=== PATIENT | male | born 1960 | race Hispanic/Latino ===

== ENCOUNTER 2023-02-09 19:58 | Emergency (ER) | payer MEDICARE ==
--- OUTSIDE RECORDS SUMMARY | 2023-02-09 20:04 | XMS REPORT | Continuity of Care Document ---
:1960 Author Organization [facility] t Address [address] [facility] [place] [address] [place] [address] Care Team Providers Name Role Phone Jasmin Cano Primary Care Physician TAY DOMINGUEZ Attending Clinician Unavailable Rasheed Ca Attending Clinician Madeline Zamarripa Attending Clinician Lizet Attending Clinician Unavailable Doctor Unassigned, [place] Attending Clinician Unavailable Dayanara Jacobo MD Attending Clinician CARLOS EDUARDO MARTINEZ Attending Clinician Unavailable Carlos Eduardo Martinez MD Attending Clinician Neha Sargent Attending Clinician Good Malone DO Attending Clinician ERNST Attending Clinician Unavailable DAYANARA JACOBO Attending Clinician Unavailable DAYANARA JACOBO Attending Clinician Unavailable MARGRET LOZANO Attending Clinician Unavailable SHIVANI RONELAS Attending Clinician Unavailable Good Malone DO Attending Clinician GOOD MALONE Attending Clinician Unavailable Pob, [facility] Attending Clinician Unavailable RICHARD BANERJEE Attending Clinician Unavailable Richard Banerjee MD Attending Clinician MERCED ACOSTA Attending Clinician Unavailable PIPER MARTINEZ Attending Clinician Unavailable WENDY ANN Attending Clinician Unavailable Wendy Ann MD Attending Clinician Piper Petersen Attending Clinician Asiya Aviles Attending Clinician IDA [place] M.D. Attending Clinician Unavailable Edson Chávez MD Attending Clinician AGA HOLLY M.D. Attending Clinician Unavailable Ida [place] Attending Clinician ART PERRIN Attending Clinician Unavailable TYREE MCGHEE DPM Attending Clinician Unavailable Chloé Hilario Attending Clinician Sheth_M Admitting Clinician Unavailable AMBREEN_EBERA Admitting Clinician Unavailable WENDY ANN Admitting Clinician Unavailable RICHARD BANERJEE Admitting Clinician Unavailable Payers Payer Name Policy Type Policy Number Effective Date Expiration Date S david CINDY/KATIE [id number] 2020 MEDICARE ADVANTAGE 00:00:[facility] [id number] 2021 (MEDICARE 00:00:00 REPLACEMENT HMO) Problems Condition Condition Condition Status Onset Resolution Last Treating Co mments Source Name Details Category Date Date Treatment Clinician Date MORBID MORBID Diagnosis Active 2020-08-26 M emoria OBESITY OBESITY 08-13 13:59:00 l Active 00:00: Stephan 08/13/2020 [facility] MORDID MORDID Diagnosis Active 2020-08-07 Me moria OBESITY OBESITY 07-31 09:03:00 l Active 00:00: Stephan 07/31/2020 [facility] SCREENING SCREENING Diagnosis Active 2020-08-06 Memoria FOR FOR 05-14 19:48:00 l DISORDERS DISORDERS 00:00: Herm samuel OF TWO OF TWO 00 DIGESTIVE DIGESTIVE Active 05/14/2020 [facility] Chronic Chronic Disease Active [facility] heart heart 4-13 ity of failure failure 00:00: [place] with with 00 Medical preserved preserved Bran ch ejection ejection fraction fraction Essential Essential Disease Active 2020-0 Uni vers hypertensi hypertensi 4-13 it y of on on 00:00: [place] [address] Medical Branch Paresthesi Paresthes Problem Active 2023-01-30 Memmercedes a ia 8-24 14:03:36 l (finding) (finding) 00:00: Herm samuel Active 00 07/15/2017 Problem 01/30/2023 [facility] Carpal Carpal Problem Active 2023-01-30 Adán nayana tunnel tunnel 6- 14:03:36 l syndrome syndrome 00:00: Marcin n (disorder) (disorder) 00 Active 05/12/2017 Problem 01/30/2023 [facility] Common Common Problem Active 2023-01-30 Mem oria peroneal peroneal - 14:03:36 l nerve nerve 00:00: Stephan lesion lesion 00 (disorder) (disorder) Active 05/12/2017 Problem 01/30/2023 [facility] M54.9 - M54.9 - Diagnosis Active 2017-01-20 Memoria "DORSALGIA "DORSALGIA 2-19 12:19:00 l , , 00:01: Stephan UNSPECIFIE UNSPECIFIE 00 D" D" Active 01/10/2017 [facility] Peterson Morbid Morbid Disease Active 2015-11 Univers obesity obesity 1-03 [place] body [place] mass index 00 Me dical of 50 or of 50 or Branch higher higher Morbid Morbid Disease Active 2015-11 [facility] obesity obesity 1-03 [place] of with body [place] body [place] mass index 00 Me dical of of Branch 40.0-49.9 40.0-49.9 Arthralgia Arthralgia Problem Active [facility] T of of Physici multiple multiple ans sites sites NSAID NSAID Problem Active [facility] long-term long-term Phys ici use use ans Joint pain Joint pain Problem Active U T of ankle of ankle Physic i and foot, and foot, ans right right Achilles Achilles Problem Active [facility] tendinitis tendinitis Ph ysici , left leg , left leg an s Calcaneal Calcaneal Problem Active UT spur of spur of Physici foot, foot, ans right right Lumbar Lumbar Problem Active [facility] stenosis stenosis Physic i with with ans neurogenic neurogenic claudicati claudicati on on SI SI Problem Active UT (sacroilia (sacroilia Ph ysici c) joint c) joint ans dysfunctio dysfunctio n n Low back Low back Problem Active [facility] pain pain Physici ans DDD DDD Problem Active UT (degenerat (degenerat Ph ysici yareli disc yareli disc ans disease), disease), lumbar lumbar Obesity Obesity Problem Active [facility] Physici ans Other Other Problem Active UT spondylosi spondylosi Ph ysici s, lumbar s, lumbar ans region region 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 ysici of left of left ans shoulder shoulder Depressive Problem Resolve 2022-08-30 Memoria disorder Depressive d 21:38:44 l (disorder) disorder Herm samuel (disorder) Resolved Problem 08/30/2022 [facility]placed By [facility] Dyspnea on Dyspnea Problem Resolve 2022-08-30 Memoria exertion on d 21:38:44 l (finding) exertion Gabbi nn (finding) Resolved Problem 08/30/2022 [facility] Edema of Edema of Problem Resolve 2022-08-30 Memoria extremity extremity d 21:38:44 l (finding) (finding) Herm samuel Resolved Problem 08/30/2022 Replaced By [facility] Obstructiv Obstructi Problem Resolve 2022-08-30 Memoria e sleep ve sleep d 21:38:44 l apnea apnea 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 (disorder) (disorder) Resolved Problem 08/30/2022 [facility] Cervical Cervical Problem Active 2023-01-30 Memoria radiculopa radiculopa 14:03:36 l thy thy Stephan (disorder) (disorder) Active Problem 01/30/2023 Replaced By [facility] [place] Cervical Cervical Problem Active 2023-01-30 Memoria spondylosi spondylosi 14:03:36 l s s [place] (disorder) (disorder) Active Problem 01/30/2023 Replaced By [facility] [place] Hypertensi Hypertens Problem Active 2023-01-30 Memoria ve yareli 14:03:36 l disorder, disorder, Herm samuel systemic systemic arterial arterial (disorder) (disorder) Active Problem 01/30/2023 Replaced By [facility] Lumbar Lumbar Problem Active 2023-01-30 Mem oria radiculopa radiculopa 14:03:36 l thy thy Stephan (disorder) (disorder) Active Problem 01/30/2023 [facility] Headache Headache Problem Active 2023-01-30 Memoria (finding) (finding) 14:03:36 l Active Stephan Problem 01/30/2023 [facility] [place] Other Other Problem 2019-05-16 [facility] spondylosi spondylosi 11:22:17 l s, lumbar s, lumbar Herm samuel region region 05/16/2019 [facility] History of Past Illness Condition Condition Condition Status Onset Resolution Last Treating Co mments Source Name Details Category Date Date Treatment Clinician Date Spinal Spinal Problem 2017-112019-05-16 2019-05-16 Memoria stenosis, stenosis, 2-11 11:22:17 11:22:17 l lumbar lumbar 05:57: [facility] region 03 with with neurogenic neurogenic claudicati claudicati on on 11/01/201805/16/ 9 [facility] Allergies, Adverse Reactions, Alerts Allergy Allergy Status Severity Reaction(s) Onset Inactive Treating Comm ents Source Name Type Date Date Clinician NO KNOWN Drug Active Univers ALLERGIE Class ity of S [facility] No Known No Known Active Memori a Medicati Medicati l on on [place] Allergie Allergie s s Family History Family Member Diagnosis Comments Start Date Stop Date Source Unknown Family Family history of Family History [facility] Member diabetes mellitus Natural father Diabetes [facility] Natural father Heart disease [facility] Natural father Hypertension [facility] father Stroke [facility] Natural sister Diabetes [facility] Social History Social Habit Start Date Stop Date Quantity Comments Source Alcohol intake 2021-11-18 2021-11-18 Ex-drinker [employer] 00:00:00 00:00:00 (finding) Hospital Tobacco use and 2021-11-18 2021-11-18 Smokeless tobacco Me [facility] exposure 00:00:00 00:00:00 non-user Hospital Sex Assigned At [birth year] M [employer] 00:00:00 00:00:00 Hospital Smoking Status Start Date Stop Date Source Tobacco smoking status [facility] Medications Ordered Filled Start Stop Current Ordering Indication Dosage Frequency Signature Comments Components Source Medication Medication Date Date Medication? Clinician (SIG) Name Name Topamax 50 Yes 50 mg = 1 Me moria mg oral 3-08 tab, PO, l tablet 15:32: Bedtime, # Gabbi nn 00 30 tab, 3 Refill(s), Pharmacy: [id number], 170.18, cm, 01/27/23 9:02:00 [employer], Height, 167.727, kg, 01/27/23 9:02:00 [employer], Weight atenolol Yes PO, Daily, Mem oria 3-08 0 l 15:09: Refill(s) [place] 00 amLODIPine 2021-11 Yes TAKE 1 Memor ia 5 mg oral 1-18 TABLET BY l tablet 14:33: MOUTH Stephan 00 EVERY DAY FOR 90 DAYS gabapentin 2021-11 Yes TAKE 1 Memor ia 300 mg oral 0-12 CAPSULE BY l capsule 20:02: MOUTH IN Marcin n 00 THE MORNING AND 1 CAPSULE AT NOON AND 1 CAPSULE IN THE EVENING. tramadol 50 2021-11 Yes TAKE 1 Adán nayana mg oral 0-12 TABLET (50 l tablet 20:02: MG TOTAL) Marcin n 00 BY MOUTH 2 (TWO) TIMES A DAY IF NEEDED FOR MODERATE PAIN testosteron 2020-[address] on Me thodi e 10 mg/0.5 2-[address] gram 09:40: Hospita /actuation 19 l gel in metered-dos e pump cyclobenzap 2020-11 Yes 10mg Q.5D Take 10 mg Methodi rine 2-[address] (FLEXERIL) 09:40: (two) Hospit a 10 mg 18 times a l tablet day. traMADoL 2020-11 Yes 50mg Q.25D Take 50 mg Me thodi (ULTRAM) 50 2-[address] mg tablet 00:00: (four) Hospit a 00 times a l day as needed. furosemide 2020-11 Yes 20mg Q.5D Take 20 mg M ethodi (LASIX) 20 2-[address] mg tablet 00:00: (two) Hospita 00 times a l day. losartan 50 2020-11 Yes [id number] 100mg Take 2 Univers mg tablet 1-23 tablets by ity of 00:00: mouth [place] 00 daily. Medical Branch losartan 50 2020-11 Yes [id number] 100mg Take 2 Univers mg tablet 1-23 tablets by ity of 00:00: mouth [place] 00 daily. Medical Branch losartan 50 2020-11 Yes [id number] 100mg Take 2 Univers mg tablet 1-23 tablets by ity of 00:00: mouth [place] 00 daily. Medical Branch losartan 50 2020-11 Yes [id number] 100mg Take 2 Univers mg tablet 1-23 tablets by ity of 00:00: mouth [place] 00 daily. Medical Branch losartan 50 2020-11 Yes [id number] 100mg Take 2 Univers mg tablet 1-23 tablets by ity of 00:00: mouth [place] 00 daily. Medical Branch losartan 50 2020-11 Yes [id number] 100mg Take 2 Univers mg tablet 1-23 tablets by ity of 00:00: mouth [place] 00 daily. Medical Branch losartan 50 2020-11 Yes [id number] 100mg Take 2 Univers mg tablet 1-23 tablets by ity of 00:00: mouth [place] 00 daily. Medical Branch losartan 50 2020-11 Yes [id number] 100mg Take 2 Univers mg tablet 1-23 tablets by ity of 00:00: mouth [place] 00 daily. Medical Branch losartan 50 2020-11 Yes [id number] 100mg Take 2 Univers mg tablet 1-23 tablets by ity of 00:00: mouth [place] 00 daily. Medical Branch gabapentin 2020-11 Yes 300mg Q.[id number] Take 300 Methodi (NEURONTIN) 1-10 [id number] mg by s t 300 mg 00:00: 3D mouth 3 Hospita capsule 00 (three) l times a day. carvediloL 2020-11 Yes [id number] 25mg Take 1 U nivers 25 mg 1-05 tablet by ity of tablet 00:00: mouth 2 [place] 00 (two) Medical times Branch daily with meals. carvediloL 2020-11 Yes [id number] 25mg Take 1 U nivers 25 mg 1-05 tablet by ity of tablet 00:00: mouth 2 [place] 00 (two) Medical times Branch daily with meals. carvediloL 2020-11 Yes [id number] 25mg Take 1 U nivers 25 mg 1-05 tablet by ity of tablet 00:00: mouth 2 [place] 00 (two) Medical times Branch daily with meals. carvediloL 2020-11 Yes [id number] 25mg Take 1 U nivers 25 mg 1-05 tablet by ity of tablet 00:00: mouth 2 [place] (two) Medical times Branch daily with meals. carvediloL 2020-11 Yes [id number] 25mg Take 1 U nivers 25 mg 1-05 tablet by ity of tablet 00:00: mouth 2 [place] (two) Medical times Branch daily with meals. carvediloL 2020-11 Yes [id number] 25mg Take 1 U nivers 25 mg 1-05 tablet by ity of tablet 00:00: mouth 2 [place] (two) Medical times Branch daily with meals. carvediloL 2020-11 Yes [id number] 25mg Take 1 U nivers 25 mg 1-05 tablet by ity of tablet 00:00: mouth 2 [place] (two) Medical times Branch daily with meals. carvediloL 2020-11 Yes [id number] 25mg Take 1 U nivers 25 mg 1-05 tablet by ity of tablet 00:00: mouth 2 [place] (two) Medical times Branch daily with meals. carvediloL 2020-11 Yes [id number] 25mg Take 1 U nivers 25 mg 1-05 tablet by ity of tablet 00:00: mouth 2 [place] (two) Medical times Branch daily with meals. carvediloL 2020-11 Yes 25mg Q.5D Take 25 mg M ethodi (COREG) 25 1-[address] MG tablet 00:00: (two) Hospita 00 times a l day. citalopram 2020-11 Yes 40mg Take 40 mg U nivers (CELEXA) 40 1-01 by mouth ity of mg tablet 10:14: daily. [address] Branch indomethaci 2020-11 Yes 75mg Take 75 mg Univers n (INDOCIN 1-01 by mouth 2 ity of SR) 75 mg 10:14: (two) [place] CR capsule 44 times Medical daily with Branch meals. citalopram 2020-11 Yes 40mg Take 40 mg U nivers (CELEXA) 40 1-01 by mouth ity of mg tablet 10:14: daily. [address] Branch indomethaci 2020-11 Yes 75mg Take 75 mg Univers n (INDOCIN 1-01 by mouth 2 ity of SR) 75 mg 10:14: (two) [place] CR capsule 44 times Medical daily with Branch meals. citalopram 2020-11 Yes 40mg Take 40 mg U nivers (CELEXA) 40 1-01 by mouth ity of mg tablet 10:14: daily. [address] indomethaci 2020-11 Yes 75mg Take 75 mg Univers n (INDOCIN 1-01 by mouth 2 ity of SR) 75 mg 10:14: (two) [place] CR capsule 44 times Medical daily with Branch meals. citalopram 2020-11 Yes 40mg Take 40 mg U nivers (CELEXA) 40 1-01 by mouth ity of mg tablet 10:14: daily. [address] indomethaci 2020-11 Yes 75mg Take 75 mg Univers n (INDOCIN 1-01 by mouth 2 ity of SR) 75 mg 10:14: (two) [place] CR capsule 44 times Medical daily with Branch meals. citalopram 2020-11 Yes 40mg Take 40 mg U nivers (CELEXA) 40 1-01 by mouth ity of mg tablet 10:14: daily. [address] indomethaci 2020-11 Yes 75mg Take 75 mg Univers n (INDOCIN 1-01 by mouth 2 ity of SR) 75 mg 10:14: (two) [place] CR capsule 44 times Medical daily with Branch meals. citalopram 2020-11 Yes 40mg Take 40 mg U nivers (CELEXA) 40 1-01 by mouth ity of mg tablet 10:14: daily. [address] indomethaci 2020-11 Yes 75mg Take 75 mg Univers n (INDOCIN 1-01 by mouth 2 ity of SR) 75 mg 10:14: (two) [place] CR capsule 44 times Medical daily with Branch meals. citalopram 2020-11 Yes 40mg Take 40 mg U nivers (CELEXA) 40 1-01 by mouth ity of mg tablet 10:14: daily. [address] indomethaci 2020-11 Yes 75mg Take 75 mg Univers n (INDOCIN 1-01 by mouth 2 ity of SR) 75 mg 10:14: (two) [place] CR capsule 44 times Medical daily with Branch meals. citalopram 2020-11 Yes 40mg Take 40 mg U nivers (CELEXA) 40 1-01 by mouth ity of mg tablet 10:14: daily. [address] Branch indomethaci 2020-11 Yes 75mg Take 75 mg Univers n (INDOCIN 1-01 by mouth 2 ity of SR) 75 mg 10:14: (two) [place] CR capsule 44 times Medical daily with Branch meals. citalopram 2020-11 Yes 40mg Take 40 mg U nivers (CELEXA) 40 1-01 by mouth ity of mg tablet 10:14: daily. [address] Branch indomethaci 2020-11 Yes 75mg Take 75 mg Univers n (INDOCIN 1-01 by mouth 2 ity of SR) 75 mg 10:14: (two) [place] CR capsule 44 times Medical daily with Branch meals. furosemide 2020-11 Yes [id number] 80mg Take 2 U nivers 40 mg 1-01 tablets by ity of tablet 00:00: mouth [place] 00 every Medical morning. Branch furosemide 2020-11 Yes [id number] 80mg Take 2 U nivers 40 mg 1-01 tablets by ity of tablet 00:00: mouth [place] 00 every Medical morning. Branch furosemide 2020-11 Yes [id number] 80mg Take 2 U nivers 40 mg 1-01 tablets by ity of tablet 00:00: mouth [place] 00 every Medical morning. Branch furosemide 2020-11 Yes [id number] 80mg Take 2 U nivers 40 mg 1-01 tablets by ity of tablet 00:00: mouth [place] 00 every Medical morning. Branch furosemide 2020-11 Yes [id number] 80mg Take 2 U nivers 40 mg 1-01 tablets by ity of tablet 00:00: mouth [place] 00 every Medical morning. Branch furosemide 2020-11 Yes [id number] 80mg Take 2 U nivers 40 mg 1-01 tablets by ity of tablet 00:00: mouth [place] 00 every Medical morning. Branch furosemide 2020-11 Yes [id number] 80mg Take 2 U nivers 40 mg 1-01 tablets by ity of tablet 00:00: mouth [place] 00 every Medical morning. Branch furosemide 2020-11 Yes [id number] 80mg Take 2 U nivers 40 mg 1-01 tablets by ity of tablet 00:00: mouth [place] 00 every Medical morning. Branch furosemide 2020-11 Yes [id number] 80mg Take 2 U nivers 40 mg 1-01 tablets by ity of tablet 00:00: mouth [place] 00 every Medical morning. Branch atorvastati 2020-11 Yes 10mg QD Take 10 mg Methodi n (LIPITOR) 0-[address] 10 mg 00:00: daily. Hospita tablet 00 l citalopram 0 2- No 20mg QD Take 20 mg Methodi (CeleXA) 20 08-20 09-[address] MG tablet 00:00: 04:59 daily. Hospi ta 00 :00 l indomethaci 0 Yes 25mg Q.[id number] Take 25 mg Methodi n (INDOCIN) 07-30 [id number] mouth [address] 25 MG 00:00: 3D (three) Hospita capsule 00 times a l day. ibuprofen 2020-0 Yes [id number] 600mg Take 1 Univers 600 mg 6-05 [id number] tablet by ity of tablet 00:00: mouth [place] 00 every 6 Medical (six) Branch hours as needed for Pain (scale 4-6). ibuprofen 2020-0 Yes [id number] 600mg Take 1 Univers 600 mg 6-05 [id number] tablet by ity of tablet 00:00: mouth [place] 00 every 6 Medical (six) Branch hours as needed for Pain (scale 4-6). ibuprofen 2020-0 Yes [id number] 600mg Take 1 Univers 600 mg 6-05 [id number] tablet by ity of tablet 00:00: mouth [place] 00 every 6 Medical (six) Branch hours as needed for Pain (scale 4-6). ibuprofen 2020-0 Yes [id number] 600mg Take 1 Univers 600 mg 6-05 [id number] tablet by ity of tablet 00:00: mouth [place] 00 every 6 Medical (six) Branch hours as needed for Pain (scale 4-6). ibuprofen 2020-0 Yes [id number] 600mg Take 1 Univers 600 mg 6-05 [id number] tablet by ity of tablet 00:00: mouth [place] 00 every 6 Medical (six) Branch hours as needed for Pain (scale 4-6). ibuprofen 2020-0 Yes [id number] 600mg Take 1 Univers 600 mg 6-05 [id number] tablet by ity of tablet 00:00: mouth [place] 00 every 6 Medical (six) Branch hours as needed for Pain (scale 4-6). ibuprofen 2020-0 Yes [id number] 600mg Take 1 Univers 600 mg 6-05 [id number] tablet by ity of tablet 00:00: mouth every 6 Medical (six) Branch hours as needed for Pain (scale 4-6). ibuprofen 2020-0 Yes [id number] 600mg Take 1 Univers 600 mg 6-05 [id number] tablet by ity of tablet 00:00: mouth every 6 Medical (six) Branch hours as needed for Pain (scale 4-6). ibuprofen 2020-0 Yes [id number] 600mg Take 1 Univers 600 mg 6-05 [id number] tablet by ity of tablet 00:00: mouth every 6 Medical (six) Branch hours as needed for Pain (scale 4-6). testosteron 2020-0 Yes INJECT 1 Un herrera e cypionate 2-10 ML IM Q ity o f 200 mg/mL 00:00: WEEK. [place] injection Medical Branch testosteron 2020-0 Yes INJECT 1 Un herrera e cypionate 2-10 ML IM Q ity o f 200 mg/mL 00:00: WEEK. [place] injection Medical Branch testosteron 2020-0 Yes INJECT 1 Un herrera e cypionate 2-10 ML IM Q ity o f 200 mg/mL 00:00: WEEK. [place] injection Medical Branch testosteron 2020-0 Yes INJECT 1 Un herrera e cypionate 2-10 ML IM Q ity o f 200 mg/mL 00:00: WEEK. [place] injection Medical Branch testosteron 2020-0 Yes INJECT 1 Un herrera e cypionate 2-10 ML IM Q ity o f 200 mg/mL 00:00: WEEK. [place] injection Medical Branch testosteron 2020-0 Yes INJECT 1 Un herrera e cypionate 2-10 ML IM Q ity o f 200 mg/mL 00:00: WEEK. [place] injection Medical Branch testosteron 2020-0 Yes INJECT 1 Un herrera e cypionate 2-10 ML IM Q ity o f 200 mg/mL 00:00: WEEK. [place] injection Medical Branch testosteron 2020-0 Yes INJECT 1 Un herrera e cypionate 2-10 ML IM Q ity o f 200 mg/mL 00:00: WEEK. [place] injection Medical Branch testosteron 2020-0 Yes INJECT 1 Un herrera e cypionate 2-10 ML IM Q ity o f 200 mg/mL 00:00: WEEK. [place] injection Medical Branch gabapentin 2020-0 Yes Univers 800 mg 2-05 ity of tablet 00:00: [place] [facility] Branch gabapentin 2020-0 Yes Univers 800 mg 2-05 ity of tablet 00:00: [place] [facility] gabapentin 2020-0 Yes Univers 800 mg 2-05 ity of tablet 00:00: [place] [facility] gabapentin 2020-0 Yes Univers 800 mg 2-05 ity of tablet 00:00: [place] [facility] gabapentin 2020-0 Yes Univers 800 mg 2-05 ity of tablet 00:00: [place] [facility] gabapentin 2020-0 Yes Univers 800 mg 2-05 ity of tablet 00:00: [place] [address] Medical Branch gabapentin 2020-0 Yes Univers 800 mg 2-05 ity of tablet 00:00: [place] [address] Medical Branch gabapentin 2020-0 Yes Univers 800 mg 2-05 ity of tablet 00:00: [place] [address] Medical Branch gabapentin 2020-0 Yes Univers 800 mg 2-05 ity of tablet 00:00: [address] Branch tadalafil 2019-1 Yes 20mg Take 20 mg Un herrera 20 mg 1-06 by mouth. ity of tablet 00:00: [place] [facility] Branch tadalafil 2019-1 Yes 20mg Take 20 mg Un herrera 20 mg 1-06 by mouth. ity of tablet 00:00: [place] [facility] Branch tadalafil 2019-1 Yes 20mg Take 20 mg Un herrera 20 mg 1-06 by mouth. ity of tablet 00:00: [place] [facility] Branch tadalafil 2019-1 Yes 20mg Take 20 mg Un herrera 20 mg 1-06 by mouth. ity of tablet 00:00: [place] [facility] Branch tadalafil 2019-1 Yes 20mg Take 20 mg Un herrera 20 mg 1-06 by mouth. ity of tablet 00:00: [place] [facility] Branch tadalafil 2019-1 Yes 20mg Take 20 mg Un herrera 20 mg 1-06 by mouth. ity of tablet 00:00: [place] [facility] Branch tadalafil 2019-1 Yes 20mg Take 20 mg Un herrera 20 mg 1-06 by mouth. ity of tablet 00:00: [place] [facility] Branch tadalafil 2019-1 Yes 20mg Take 20 mg Un herrera 20 mg 1-06 by mouth. ity of tablet 00:00: [address] Branch tadalafil 2019-1 Yes 20mg Take 20 mg Un herrera 20 mg 1-06 by mouth. ity of tablet 00:00: [place] [facility] tadalafiL 2019-1 Yes 20mg Take 20 mg Me thodi (CIALIS) 20 1-[address] mg tablet 00:00: Hospita 00 l clotrimazol [id number] Yes DA 2 GTS U nivers e 1 % 9-30 EXT AA BID ity of solution 00:00: [place] [facility] dexamethaso 20190 Yes INSTILL 2 U nivers ne 0.1 % 9-30 GTS INTO ity of ophthalmic 00:00: [place] solution [address] [facility] clotrimazol 20190 Yes DA 2 GTS U nivers e 1 % 9-30 EXT AA BID ity of solution 00:00: [place] [facility] dexamethaso 0 Yes INSTILL 2 U nivers ne 0.1 % 9-30 GTS INTO ity of ophthalmic 00:00: [place] solution [address] [facility] clotrimazol 20190 Yes DA 2 GTS U nivers e 1 % 9-30 EXT AA BID ity of solution 00:00: [address] dexamethaso [address] Yes INSTILL 2 U nivers ne 0.1 % 9-30 GTS INTO ity of ophthalmic 00:00: [place] solution [address] [facility] clotrimazol 20190 Yes DA 2 GTS U nivers e 1 % 9-30 EXT AA BID ity of solution 00:00: [address] dexamethaso 2019-0 Yes INSTILL 2 U nivers ne 0.1 % 9-30 GTS INTO ity of ophthalmic 00:00: [place] solution [address] [facility] clotrimazol 20190 Yes DA 2 GTS U nivers e 1 % 9-30 EXT AA BID ity of solution 00:00: [place] [facility] dexamethaso 2019-0 Yes INSTILL 2 U nivers ne 0.1 % 9-30 GTS INTO ity of ophthalmic 00:00: [place] solution [address] [facility] clotrimazol 20190 Yes DA 2 GTS U nivers e 1 % 9-30 EXT AA BID ity of solution 00:00: [address] dexamethaso Yes INSTILL 2 U nivers ne 0.1 % 9-30 GTS INTO ity of ophthalmic 00:00[place] solution [address] [facility] clotrimazol Yes DA 2 GTS U nivers e 1 % 9-30 EXT AA BID ity of solution 00:00: [facility] dexamethaso Yes INSTILL 2 U nivers ne 0.1 % 9-30 GTS INTO ity of ophthalmic 00:00: [place] [address] [facility] clotrimazol Yes DA 2 GTS U nivers e 1 % 9-30 EXT AA BID ity of solution 00:00: [facility] dexamethaso Yes INSTILL 2 U nivers ne 0.1 % 9-30 GTS INTO ity of ophthalmic 00:00: [place] [address] [facility] clotrimazol Yes DA 2 GTS U nivers e 1 % 9-30 EXT AA BID ity of solution 00:00: [facility] dexamethaso Yes INSTILL 2 U nivers ne 0.1 % 9-30 GTS INTO ity of ophthalmic 00:00: [place] [address] [facility] furosemide Yes 40 mg = 1 Me moria 40 mg oral 9-26 tab, PO, l tablet 18:17: Daily, 0 Stephan 00 Refill(s) losartan 50 Yes 50 mg = 1 M emoria mg oral 9-26 tab, PO, l tablet 18:17: Daily, 0 Stephan 00 Refill(s) montelukast Yes 10 mg = 1 M emoria 10 mg oral 9-26 tab, PO, l tablet 18:17: Daily, 0 [place] 00 Refill(s) HYDROcodone Yes 1{tbl} Take 1 Un herrera -acetaminop 7-16 tablet by ity of hen 10-325 11:19: mouth [place] mg tablet 05 every 6 Medical (six) Branch hours as needed for Pain (scale 7-10). HYDROcodone Yes 1{tbl} Take 1 Un herrera -acetaminop 7-16 tablet by ity of hen 10-325 11:19: mouth [place] mg tablet 05 every 6 Medical (six) Branch hours as needed for Pain (scale 7-10). HYDROcodone 2019-0 Yes 1{tbl} Take 1 Un herrera -acetaminop 7-16 tablet by ity of hen 10-325 11:19: mouth [place] mg tablet 05 every 6 Medical (six) Branch hours as needed for Pain (scale 7-10). HYDROcodone 2019-0 Yes 1{tbl} Take 1 Un herrera -acetaminop 7-16 tablet by ity of hen 10-325 11:19: mouth [place] mg tablet 05 every 6 Medical (six) Branch hours as needed for Pain (scale 7-10). HYDROcodone 2019-0 Yes 1{tbl} Take 1 Un herrera -acetaminop 7-16 tablet by ity of hen 10-325 11:19: mouth [place] mg tablet 05 every 6 Medical (six) Branch hours as needed for Pain (scale 7-10). HYDROcodone 2019-0 Yes 1{tbl} Take 1 Un herrera -acetaminop 7-16 tablet by ity of hen 10-325 11:19: mouth [place] mg tablet 05 every 6 Medical (six) Branch hours as needed for Pain (scale 7-10). HYDROcodone 2019-0 Yes 1{tbl} Take 1 Un herrera -acetaminop 7-16 tablet by ity of hen 10-325 11:19: mouth [place] mg tablet 05 every 6 Medical (six) Branch hours as needed for Pain (scale 7-10). HYDROcodone 2019-0 Yes 1{tbl} Take 1 Un herrera -acetaminop 7-16 tablet by ity of hen 10-325 11:19: mouth [place] mg tablet 05 every 6 Medical (six) Branch hours as needed for Pain (scale 7-10). HYDROcodone 2019-0 Yes 1{tbl} Take 1 Un herrera -acetaminop 7-16 tablet by ity of hen 10-325 11:19: mouth [place] mg tablet 05 every 6 Medical (six) Branch hours as needed for Pain (scale 7-10). montelukast 2019-0 Yes 1{tbl} Take 1 Un herrera 10 mg 3-25 tablet by ity of tablet 00:00: mouth. [place] 00 Medical Branch montelukast 2019-0 Yes 1{tbl} Take 1 Un herrera 10 mg 3-25 tablet by ity of tablet 00:00: mouth. [place] [facility] Yes 1{tbl} Take 1 Un herrera 10 mg 3-25 tablet by ity of tablet 00:00: mouth. [place] [facility] Yes 1{tbl} Take 1 Un herrera 10 mg 3-25 tablet by ity of tablet 00:00: mouth. [place] [facility] Yes 1{tbl} Take 1 Un herrera 10 mg 3-25 tablet by ity of tablet 00:00: mouth. [place] [facility] Yes 1{tbl} Take 1 Un herrera 10 mg 3-25 tablet by ity of tablet 00:00: mouth. [place] [facility] Yes 1{tbl} Take 1 Un herrera 10 mg 3-25 tablet by ity of tablet 00:00: mouth. [place] [facility] Yes 1{tbl} Take 1 Un herrera 10 mg 3-25 tablet by ity of tablet 00:00: mouth. [place] [facility] Yes 1{tbl} Take 1 Un herrera 10 mg 3-25 tablet by ity of tablet 00:00: mouth. [address] Yes 1{tbl} QD Take 1 Me thodi (SINGULAIR) 3-[address] 10 mg 00:00: mouth [facility]osp[facility] tablet 00 nightly. l citalopram Yes 40 mg = 1 Me moria 40 mg oral 6-14 tab, PO, l tablet 15:55: Daily, # Stephan 00 30 tab, 0 Refill(s) carvedilol Yes 25 mg = 1 Me moria 25 mg oral 6-14 tab, PO, l tablet 15:55: Q12H, # 60 Gabbi nn 00 tab, 0 Refill(s) folic acid Yes 1 mg = 1 Mem oria 1 mg oral 2-20 tab, PO, l tablet 15:15: Daily, # [place] 00 30 tab, 0 Refill(s) traMADOL 50 Yes 50mg Take 50 mg Univers mg tablet 9-29 by mouth 2 ity of 09:21: (two) [place] 49 times Medical daily. Branch traMADOL 50 2017-0 Yes 50mg Take 50 mg Univers mg tablet 08-20 by mouth 2 ity of 09:21: (two) [place] 49 times Medical daily. Branch traMADOL 50 2017-0 Yes 50mg Take 50 mg Univers mg tablet 08-20 by mouth 2 ity of 09:21: (two) [place] 49 times Medical daily. Branch traMADOL 50 2017-0 Yes 50mg Take 50 mg Univers mg tablet 08-20 by mouth 2 ity of 09:21: (two) [place] 49 times Medical daily. Branch traMADOL 50 2017-0 Yes 50mg Take 50 mg Univers mg tablet 08-20 by mouth 2 ity of 09:21: (two) [place] 49 times Medical daily. Branch traMADOL 50 2017-0 Yes 50mg Take 50 mg Univers mg tablet 08-20 by mouth 2 ity of 09:21: (two) [place] 49 times Medical daily. Branch traMADOL 50 2017-0 Yes 50mg Take 50 mg Univers mg tablet 08-20 by mouth 2 ity of 09:21: (two) [place] 49 times Medical daily. Branch traMADOL 50 2017-0 Yes 50mg Take 50 mg Univers mg tablet 08-20 by mouth 2 ity of 09:21: (two) [place] 49 times Medical daily. Branch traMADOL 50 2017-0 Yes 50mg Take 50 mg Univers mg tablet 08-20 by mouth 2 ity of 09:21: (two) [place] 49 times Medical daily. Branch Citalopram Citalopram Yes UT Hydrobromid Hydrobromid P hysici e 40 MG e 40 MG ans Oral Tablet Oral Tablet Carvedilol Carvedilol Yes UT 25 MG Oral 25 MG Oral Phy sici Tablet Tablet ans Cyclobenzap Cyclobenzap Yes U T rine HCl - rine HCl - Phy sici 10 MG Oral 10 MG Oral ans Tablet Tablet Testosteron Testosteron Yes U T e 10 MG/ACT e 10 MG/ACT P hysici (2%) (2%) ans Transdermal Transdermal Gel Gel Citalopram Citalopram Yes UT Hydrobromid Hydrobromid P hysici e 40 MG e 40 MG ans Oral Tablet Oral Tablet Carvedilol Carvedilol Yes UT 25 MG Oral 25 MG Oral Phy sici Tablet Tablet ans Losartan Losartan Yes UT Potassium Potassium Physi ci 50 MG Oral 50 MG Oral ans Tablet Tablet Indomethaci Indomethaci Yes U T n 25 MG n 25 MG Physici Oral Oral ans Capsule Capsule Ibuprofen Ibuprofen Yes UT TABS TABS Physici ans Immunizations Ordered Filled Immunization Date Status Comments [facility] e Immunization Name Name SARS-COV-2 COVID-19 2021-02-04 Completed Unive rsity of PFIZER VACCINE 00:00:00 [facility] SARS-COV-2 COVID-19 2021-02-04 Completed Unive rsity of PFIZER VACCINE 00:00:00 [facility] SARS-COV-2 COVID-19 2021-02-04 Completed Unive rsity of PFIZER VACCINE 00:00:00 [facility] SARS-COV-2 COVID-19 2021-02-04 Completed Unive rsity of PFIZER VACCINE 00:00:00 [facility] SARS-COV-2 COVID-19 2021-02-04 Completed Unive rsity of PFIZER VACCINE 00:00:00 [facility] SARS-COV-2 COVID-19 2021-02-04 Completed Unive rsity of PFIZER VACCINE 00:00:00 [facility] SARS-COV-2 COVID-19 2021-02-04 Completed Unive rsity of PFIZER VACCINE 00:00:00 [facility] SARS-COV-2 COVID-19 2021-02-04 Completed Unive rsity of PFIZER VACCINE 00:00:00 [facility] SARS-COV-2 COVID-19 2021-02-04 Completed Unive rsity of PFIZER VACCINE 00:00:00 [facility] SARS-COV-2 COVID-19 2021-01-14 Completed Unive rsity of PFIZER VACCINE 00:00:00 [facility] SARS-COV-2 COVID-19 2021-01-14 Completed Unive rsity of PFIZER VACCINE 00:00:00 [facility] SARS-COV-2 COVID-19 2021-01-14 Completed Unive rsity of PFIZER VACCINE 00:00:00 [facility] SARS-COV-2 COVID-19 2021-01-14 Completed Unive rsity of PFIZER VACCINE 00:00:00 [facility] SARS-COV-2 COVID-19 2021-01-14 Completed Unive rsity of PFIZER VACCINE 00:00:00 [facility] SARS-COV-2 COVID-19 2021-01-14 Completed Unive rsity of PFIZER VACCINE 00:00:00 [facility] SARS-COV-2 COVID-19 2021-01-14 Completed Unive rsity of PFIZER VACCINE 00:00:00 [facility] SARS-COV-2 COVID-19 2021-01-14 Completed Unive rsity of PFIZER VACCINE 00:00:00 [facility] SARS-COV-2 COVID-19 2021-01-14 Completed Unive rsity of PFIZER VACCINE 00:00:00 [facility] Vital Signs Vital Name Observation Time Observation Value Comments Source Systolic (mm Hg) 2023-01-27 [facility]mann 14:52:00 Diastolic (mm Hg) 2023-01-27 [facility] ermann 14:52:00 Heart Rate 2023-01-27 [facility] 14:52:00 Height 2023-01-27 5 [ft_i] [facility] 14:52:00 Weight 2023-01-27 [facility] 14:52:00 BMI Calculated 2023-01-27 [facility] 14:52:00 Systolic (mm Hg) 2022-10-09 [facility] 14:11:00 Diastolic (mm Hg) 2022-10-09 [facility] ermann 14:11:00 Heart Rate 2022-10-09 [facility] 14:11:00 Height 2022-10-09 5 [ft_i] [facility] 14:11:00 Weight 2022-10-09 [facility] 14:11:00 BMI Calculated 2022-10-09 [facility]uel 14:11:00 Systolic (mm Hg) 2022-09-02 [facility] 19:21:00 Diastolic (mm Hg) 2022-09-02 [facility] ermann 19:21:00 Heart Rate 2022-09-02 [facility] 19:21:00 Height 2022-09-02 5 [ft_i] [facility] 19:21:00 Weight 2022-09-02 [facility] 19:21:00 BMI Calculated 2022-09-02 [facility]uel 19:21:00 BMI Calculated 2018-11-01 [facility] samuel 20:28:00 Weight 2018-11-01 Annemarie Burch n 20:28:00 Height 2018-11-01 172.72 cm Annemarie Burch n 20:28:00 Respitory Rate 2018-11-01 Annemarie Pena samuel 20:28:00 Systolic (mm Hg) 2018-11-01 Annemarie Jeffers rmann 20:28:00 Diastolic (mm Hg) 2018-11-01 [facility] Juma ermann 20:28:00 Heart Rate 2018-11-01 Annemarie Burch n 20:28:00 BP Systolic 2018-10-31 136 mm[Hg] Location: LUE; [facility] 08:45:00 Position: Sitting BP Diastolic 2018-10-31 82 mm[Hg] Location: LUE; [facility] 08:45:00 Position: Sitting Height 2018-10-31 68 [in_us] [facility] 08:45:00 Weight 2018-10-31 389 [lb_av] [facility] 08:45:00 Body Mass Index 2018-10-31 59.15 kg/m2 [facility] Calculated 08:45:00 Temperature 2018-10-31 98.3 [degF] Method: Oral [facility] 08:45:00 Heart Rate 2018-10-31 69 /min Location: L [facility] 08:45:00 Brachial Artery; BP Systolic 2018-07-15 159 mm[Hg] Location: LUE; [facility] 09:11:00 Position: Sitting BP Diastolic 2018-07-15 98 mm[Hg] Location: LUE; [facility] 09:11:00 Position: Sitting Height 2018-07-15 68 [in_us] [facility] 09:11:00 Weight 2018-07-15 396.125 [lb_av] [facility] 09:11:00 Body Mass Index 2018-07-15 60.23 kg/m2 [facility] Calculated 09:11:00 Temperature 2018-07-15 98.6 [degF] Method: Oral [facility] 09:11:00 Heart Rate 2018-07-15 63 /min Location: L [facility] 09:11:00 Brachial Artery; Procedures Procedure Date / Time Performing Clinician Source Performed DME/SUPPLY JUSTIFICATION 2022-11-10 06:01:00 Doctor Unassigned, No [facility] Name Medical Branch AUTHORIZATION FOR 2022-09-21 05:01:00 Doctor Unassigned, No [facility] RELEASE OF [facility] Name Medical Branch DME/SUPPLY JUSTIFICATION 2022-03-24 05:01:00 Doctor Unassigned, No [facility] Name Medical Branch [UTP] Ortho - Surgery 2018-12-16 00:00:00 [facility] Scheduling MRI Spine lumbar wo 2018-09-16 00:00:00 [facility] contrast 25132 [QLH] CBC (INCLUDES 2018-07-15 00:00:00 [facility] DIFF/PLT) [QLH] CMP W/EGFR 2018-07-15 00:00:00 [facility] [[facility]] C-REACTIVE PROTEIN 2018-07-15 00:00:00 [facility] [QL[facility]] SED RATE BY 2018-07-15 00:00:00 [facility] MODIFIED WESTERGREN [QH] CYCLIC 2018-07-15 00:00:00 [facility] CITRULLINATED PEPTIDE (CCP) AB (IGG) History of Foot surgery [facility] Hernia [facility] repair<sup>1</sup> Appendectomy [facility] Achilles tendon repair [facility] Plan of Care Planned Activity Planned Date Details Comments Source Future Scheduled 2023-02-03 Pneumococcal Vaccine: [facility] Test 02:47:03 Pediatrics (0 to 5 Years) and At-Risk Patients (6 to 64 Years) (1 - PCV) [code = Pneumococcal Vaccine: Pediatrics (0 to 5 Years) and At-Risk Patients (6 to 64 Years) (1 - PCV)] Future Scheduled 2023-02-03 Hepatitis C screening [facility] Test 02:47:03 (procedure) [code = 312244738] Future Scheduled 2023-02-03 SHINGLES VACCINES (1 [facility] Test 02:47:03 of 2) [code = SHINGLES VACCINES (1 of 2)] Future Scheduled 2023-02-03 COLONOSCOPY SCREENING [facility] Test 02:47:03 [code = COLONOSCOPY SCREENING] Future Scheduled 2023-02-03 COVID-19 VACCINE (3 - [facility] Test 02:47:03 Booster for Pfizer series) [code = COVID-19 VACCINE (3 - Booster for Pfizer series)] Future Scheduled 2023-02-03 HEPATITIS B VACCINES [facility] Test 02:47:03 (1 of 3 - Risk 3-dose series) [code = HEPATITIS B VACCINES (1 of 3 - Risk 3-dose series)] Future Scheduled 2023-02-03 INFLUEN[facility]ACCINE [facility] 02:47:03 [code = INFLUENZA VACCINE] Diagnostic Test 2018-12-16 [UTP] Ortho - Surgery [facility] Pending 00:00:00 Scheduling [code = [UTP] Ortho - Surgery Scheduling] Encounters Start End Encounter Admission Attending Care Care Encounter Source Date/Time Date/Time Type Type Clinicians Facility Department ID 2021-09-18 Emergency [facility] [id number] [facility] [id number] M emoria 13:57:21 TAY Rothman Vida [facility] 2020-08-06 Outpatient [facility] [id number] M emoria 13:18:14 TAY Rothman Vida l [facility] 2020-05-15 Outpatient PRIMOMO, [facility] [id number] M emoria 12:08:50 TAY Mcpherson [facility] 2023-03-10 2023-03-10 Outpatient MHIE MHIE [id number] Memoria 09:45:00 09:45:00 12 radha PenaStephan 2023-01-27 2023-01-28 Outpatient MHIE MNA [id number] Memoria 15:15:00 05:59:59 Neurology 11 radha Sergio Rothman 2023-01-27 2023-01-27 Outpatient BERYL CaMISCHER [id number] 09:15:00 23:59:59 Rasheed 11 Jacky 2023-01-27 2023-01-27 Outpatient MHIE JONNYIE [id number] Memoria 09:15:00 09:15:00 11 radha Rothman 2023-01-12 2023-01-12 Ambulatory MHIE MNA [id number] Memoria 16:00:00 16:00:00 Pre-Reg Neurology 10 radha Sergio Rothman 2023-01-12 2023-01-12 Outpatient MHIE MHIE [id number] Memoria 10:00:00 10:00:00 10 radha Rothman 2023-01-12 2023-01-12 Outpatient BERYL CaMISCHLISA [id number] 10:00:00 10:00:00 Rasheed 10 Jacky 2023-01-10 2023-01-10 Care Madeline 2.16.840. 2.16.840.1. CLAC XCREAU [facility] 15:30:00 16:00:00 OnKwadwomand Preettari [id number] [id number] Medical [id number] 2022-12-08 2022-12-08 [place] [id number] [facility] 00:00:00 00:00:00 0117 Medica l Group 2022-11-10 2022-11-10 Orders Doctor TAY [id number] Univers 00:00:00 00:00:00 Only Unassigned, ESPERANZA [id number] ity of [place] [facility] 4.2.7.2.686 Maxi as [phone] [facility] 009 Branch 2022-11-06 2022-11-06 [facility]phone [facility] [id number] Univers 00:00:00 00:00:00 Strahil T HEALTH [id number] [place] [id number] [facility] 084 Branch OFFICE BUILDING 2022-11-05 2022-11-05 Telephone Donnell [facility] 1.2.840.114 [id number] Univers 00:00:00 00:00:00 Straidl T MULTISPEC 350.1.13.10 ity of [place]2.[place] [id number] [facility] AND DEWAYNE [facility] 2022-10-09 2022-10-10 Outpatient MHIE VLAD [id number] Memoria 14:15:00 05:59:59 Neurology 09 radha Rothman 2022-10-09 2022-10-09 Outpatient BERYL Ca [id number] 08:15:00 23:59:59 Rasheed 09 Jacky 2022-10-09 2022-10-09 Outpatient MHIE BORIS [id number] Memoria 08:15:00 08:15:00 Vincent Rothman 2022-09-22 2022-09-22 Outpatient R ROBERT, [facility] [id number] Univers 10:20:00 10:20:00 CARLOS EDUARDO olvera [facility] 2022-09-22 2022-09-22 Outpatient R ROBERT, [facility] [id number] Univers 10:20:00 10:20:00 CARLOS EDUARDO olvera [facility] 2022-09-21 2022-09-21 [facility]phone [facility] [id number] Univers 00:00:00 00:00:00 Carlos Eduardo [place] 350.1.13.10 ity [place] [id number] [place] [id number] [facility] 2022-09-21 2022-09-21 Orders Doctor TAY 1.2.840.114 [id number] Univers 00:00:00 00:00:00 Only Unassigned, ESPERANZA 350.1.13.10 ity of [facility] 4.2.7.2.686 Maxi as [phone] [place] [address] Branch 2022-09-04 2022-09-04 CAV Neha 2.16.840. 2.16.840.1. CLAC [id number] [facility] 14:30:00 15:30:00 Arie [id number]. 2FZ Medical [id number] [id number] 2022-09-02 2022-09-03 Outpatient nullFlavo MNA [id number] Memoria 19:00:00 04:59:59 r Neurology 08 radha Rothman 2022-09-02 2022-09-02 Outpatient JONNY CaMISCHER MHMISCHER [id number] 14:00:00 23:59:59 Rasheed Rico 2022-09-02 2022-09-02 Outpatient MHIE BORIS [id number] Memoria 14:00:00 14:00:00 08 radha Rothman 2022-08-28 2022-08-28 Ambulatory nullFlavo MNA [id number] Memoria 14:00:00 14:00:00 Pre-Reg r Neurology 07 l Fultonmercedes Rothman 2022-08-28 2022-08-28 Outpatient MHIE MHIE [id number] Memoria 09:00:00 09:00:00 07 l Stephan 2022-08-28 2022-08-28 Outpatient Roby MHMISCHER MHMISCHER [id number] 09:00:00 09:00:00 Rasheedching Rico 2022-08-28 2022-08-28 Transcribe Ahmet 1.2.840.1 [id number] Methodi 00:00:00 00:00:00 Orders Good Madrigal [id number] 3.430.2.7 Hospit a .[id number] l .8 2022-06-25 2022-06-25 Outpatient AMBREEN_FAR [facility] 832 [place] 00:00:00 00:00:00 HANA 0804 [facility] 2022-06-06 2022-06-06 Outpatient DMG [facility] [id number] [facility] 10:01:00 10:01:00 0716 Medica l Group 2022-03-24 2022-03-24 Telephone TERRELL Jacobo 1.2.840.114 [id number] Univers 00:00:00 00:00:00 Strahil Marilynn [place] 350.1.13.10 ity [place] [id number] [facility] 085 [facility] 2022-03-24 2022-03-24 Orders Doctor TAY 1.2.840.114 [id number] Univers 00:00:00 00:00:00 Only Unassigned, ESPERANZA 350.1.13.10 ity of [place] [facility] 4.2.7.2.686 Maxi as [id number] [address] 2022-02-11 2022-02-11 Office TERRELL Jacobo [id number] Univers 11:40:00 12:00:00 Visit Dayanara [place] 350.1.13.10 [place]2.[place] [id number] Al dical NAL 5 [facility] 2022-02-11 2022-02-11 Outpatient R DAYANARA JACOBO [facility] [id number] Univers 11:40:00 11:40:00 DAYANARA JACOBO ity of [facility] 2022-01-08 2022-01-08 Telephone [facility] 1.2.840.114 [id number] Univers 00:00:00 00:00:00 Strahil T [place] 350.1.13.10 ity [place] [id number] [address] 2022-01-08 2022-01-08 Orders Doctor TAY 1.2.840.114 [id number] Univers 00:00:00 00:00:00 Only Unassigned, ESPERANZA 350.1.13.10 ity of [place] [facility] 4.2.7.2.686 Maxi as [phone] [address] 2022-01-01 2022-01-01 Telephone [facility] 1.2.840.114 [id number] Univers 00:00:00 00:00:00 Strahil T [place] 350.1.13.10 ity of [place] [id number] [address] 2021-12-09 2021-12-09 Outpatient DMG [facility] [id number] Devoted 03:00:00 03:00:00 0118 Medica l Group 2021-11-26 2021-11-26 Tele[facility] 1.2.840.114 [id number] Univers 00:00:00 00:00:00 Strahil T [place] 350.1.13.10 it[place] [id number] [facility] NAL [address] [place] [address] 2021-11-18 2021-11-18 Outpatient [facility] [id number] [place] 00:00:00 00:00:00 MARGRET Mont[address] [facility] 2021-11-18 2021-11-18 Outpatient SHIVANI [facility]NELAS [facility] [id number] [place] 00:00:00 00:00:00 960 Method i 2021-10-29 2021-10-29 Telephone Donnell MAMOISES 1.2.840.114 [id number] Univers 00:00:00 00:00:00 Dayanara [place] 350.1.13.10 ity [facility] 4.2.7.2.[place] [id number] Al dical NAL 085 [facility] 2021-10-13 2021-10-13 [facility] 1.2.840.114 [id number] Univers 00:00:00 00:00:00 Carlos Eduardo [place] 350.1.13.10 ity of [place].2.[place] [phone] Al dical NAL 059 [facility] 2021-09-26 2021-09-26 Outpatient DMG [facility] [id number] Devoted 11:00:00 11:00:00 1105 Medica l Group 2021-09-25 2021-09-[facility] 1.2.840.114 [id number] Univers 00:00:00 00:00:00 Carlos Eduardo [place] 350.1.13.10 ity of [place] [phone] Al dical NAL 059 [facility] 2021-09-22 2021-09-22 [facility] [id number] Univers 10:20:00 10:39:45 CARLOS EDUARDO crooksy o f [facility] 2021-09-22 2021-09-22 Office [facility] 1.2.840.114 [id number] Univers 10:01:41 10:39:45 Visit Carlos Eduardo [place] 350.1.13.10 ity of [place].2.[place] [id number] Al dical NAL 059 [facility] 2021-09-22 2021-09-22 [facility] [id number] Univers 10:20:00 10:20:00 CARLOS EDUARDO crooksy o f [facility] 2021-09-03 2021-09-03 [facility] [id number] Univers 11:44:03 23:59:00 Encounter Good Pepe K[place] 350.1.13.10 ity of [place].2.[place] [id number] [facility] [address] [place] 2021-09-03 2021-09-03 [facility] [id number] Univers 00:00:00 00:00:00 GOOD freeman [facility] 2021-09-01 2021-09-01 Student Education Specialist Demetrice, [facility] Lab Main [facility] 1.2.8 [id number] Univers 09:12:30 12:05:45 Visit Robert Carlos Eduardo [place] [id number] ity [facility] [id number] [facility] [phone] Al dical palmira [address] 2021-09-01 2021-09-01 Outpatient [facility] [id number] Univers 09:15:00 09:15:00 JUWANADAMHILARIO pete o f [facility] 2021-09-01 2021-09-01 Orders Doctor TAY [id number] Univers 00:00:00 00:00:00 Only Unassigned, ESPERANZA [id number] ity of [place] [facility] [id number] Maxi as [phone] [facility] [address] 2021-08-20 2021-08-20 [facility] [id number] Univers 15:30:00 15:30:00 RICHARD freeman [facility] 2021-08-20 2021-08-20 [facility] [id number] Univers 15:30:00 15:30:00 Visit Richard [facility] 350.1.13.10 it y of [place] 4.2.7.2.686 Maxi as JOSE?BLEA [phone] Al dical KNEY [address] MEDICAL OFFICE BUILDING 2021-08-20 2021-08-20 [facility] [id number] Univers 15:30:00 13:17:57 RICHARD hari [facility] 2021-08-20 2021-08-20 Office [facility] 1.2.111.077 [id number] Univers 12:52:55 13:17:57 Visit [facility] 350.1.13.10 it y of [place] 4.2.7.2.686 Maxi as Jose?Blea [phone] Al kaelyn [address] Office [facility] 2021-07-14 2021-07-14 Ref[facility]adira [facility] 1.2.840.114 [id number] Univers 00:00:00 00:00:00 Norberthilario [place] 350.1.13.10 [place] of [place] Profess[place] [phone] Al priyanktx nal [address] [place] [address] 2021-06-02 2021-06-02 Outpatient R ROBERT [facility] [id number] Univers 11:20:00 11:20:00 CARLOS EDUARDO freeman o [facility] 2021-05-28 2021-05-28 Outpatient Elliott [facility] [id number] Univers 13:40:00 13:40:00 JUWANCHIQUIS crooksy o [facility] 2021-04-14 2021-04-14 [facility] 1.2.840.114 [id number] Univers 00:00:00 00:00:00 Carlos Eduardo [place] 350.1.13.10 ity [facility] [place].2.7.2.[place] [phone] Al priyanktx nal [address] [place] [address] 2021-02-04 2021-02-04 Outpatient R KARLA [facility] [id number] Univers 11:00:00 11:00:00 MERCED hari [facility] 2021-01-24 2021-01-24 Outpatient Elliott MARTINEZ [facility] [id number] Univers 10:30:00 10:30:00 PIPER hari [facility] 2021-01-21 2021-01-21 Telephone Chriss [facility] 1.2.840.114 [id number] Univers 00:00:00 00:00:00 Richard [facility] 350.1.13.10 it y of Surgical 4.2.7.2.686 Maxi as Specialti [phone] Al dical es 198 [facility] 2021-01-14 2021-01-14 Outpatient R KARLA [facility] [id number] Univers 11:20:00 11:20:00 MERCED ity of [facility] 2020-12-20 2020-12-20 Telephone [facility] [id number] Univers 00:00:00 00:00:00 Carlos Eduardo [place] 350.1.13.10 [place].2.[place] [facility] [phone] Al dical nal 059 [facility] 2020-12-19 2020-12-19 Orders Doctor ATY 1.2.840.114 [id number] Univers 00:00:00 00:00:00 Only Unassigned, ESPERANZA 350.1.13.10 ity of [place] [facility] 4.2.7.2.686 Maxi as [phone] [facility] [address] 2020-12-04 2020-12-04 Outpatient R ROBERT [facility] [id number] Univers 09:00:00 09:00:00 CARLOS EDUARDO crooksy o f [facility] 2020-11-21 2020-11-21 Outpatient [facility] [id number] Univers 09:00:00 09:00:00 RICHARD crokosy [facility] 2020-08-08 2020-08-08 Outpatient [facility] [id number] Univers 08:02:59 23:59:00 WENDY ity [facility] 2020-08-08 2020-08-08 [facility] 1.2.840.114 [id number] Univers 08:00:00 23:59:00 Encounter Wendy [place]ajaston 350.1.13.10 it[place] of [place].2.686 [place] [phone] [facility] [address] [place] 2020-08-08 2020-08-08 Outpatient R ARMINDA [facility] [id number] Univers 00:00:00 00:00:00 WENDY ity [facility] 2020-06-14 2020-06-14 Orders Doctor TAY 1.2.840.114 [id number] Univers 00:00:00 00:00:00 Only Unassigned, ESPERANZA 350.1.13.10 ity of [place] [facility] 4.2.7.2.686 Maxi as [phone] [address] 2020-05-29 2020-05-29 Office Chriss Richard Radha [facility] 1.2.840. 114 [id number] Univers 14:07:54 14:45:55 Visit Piper Martinez [facility] 350.1.13.10 ity of Surgical 4.2.7.2.686 Maxi as Specialti [phone] Al dical es 198 [facility] 2020-05-29 2020-05-29 Outpatient R [facility] [id number] Univers 14:15:00 14:15:00 [facility] 2020-05-14 2020-05-14 Telephone [facility] 1.2.877.204 [id number] Univers 00:00:00 00:00:00 Carlos Eduardo [place] 350.1.13.10 [place].2.[place] [phone] Al dical nal 059 [facility] 2020-01-24 2020-05-06 Office Banerjee [facility] 1.2.434.685 [id number] Univers 15:01:45 16:33:12 Visit [facility] 350.1.13.10 it y of Surgical 4.2.7.2.686 Maxi as Specialti [phone] Me dical es 198 [facility] 2020-05-01 2020-05-01 Outpatient R DAYANARA JACOBO [facility] [id number] Univers 09:00:00 09:00:00 [facility] 2020-04-26 2020-04-26 Emergency Asiya Christpoher [facility] 1.2.840.114 [id number] Univers 19:59:21 21:23:00 Nevaeh De 350.1.13.10 i ty of [place]2.7.2.686 [place] [phone] [place] 603814 [place] 2020-04-26 2020-04-26 Orders Doctor TAY 1.2.840.114 [id number] Univers 00:00:00 00:00:00 Only Unassigned, ESPERANZA 350.1.13.10 ity of [place] [facility] 4.2.7.2.686 Maxi as [phone] [address] 2020-03-07 2020-03-07 Orders Doctor TAY 1.2.840.114 [id number] Univers 00:00:00 00:00:00 Only Unassigned, ESPERANZA 350.1.13.10 ity of [place] [facility]PITAL 4.2.7.2.686 Maxi as [phone] [address] 2020-03-06 2020-03-06 Telephone [facility] 1..840.114 [id number] Univers 00:00:00 00:00:00 Dayanara Marilynn De 350.1.13.10 [place] of [place]2.[place].2.[place] [phone] Al dical nal 085 [facility] 2020-03-04 2020-03-04 Telemedici [facility] 1.2.840.114 [id number] Univers 08:15:12 16:20:51 ne Visit Juwanadamhilario [place] 350.1.13.10 it[place] of [place] 4[place]2.[place].2.[place] [phone] Al dical nal 059 [facility] 2020-03-04 2020-03-04 Outpatient R ROBERT [facility] [id number] Univers 15:15:00 15:15:00 CARLOS EDUARDO freeman o f [facility] 2020-01-24 2020-01-24 Outpatient [facility] [id number] Univers 15:30:00 15:30:00 RICHARD freeman of [facility] 2020-01-22 2020-01-22 AppointOBED [facility] 5 [id number] [place] 10:45:00 10:45:00 t; IDA, - Sugar Physi ci KIRSTIN M.D. Land 2 POD ans Gini IZQUIERDO M.D. 2020-01-16 2020-01-16 Outpatient [facility] [id number] Univers 14:01:39 23:59:00 RICHARD freeman [facility] 2020-01-16 2020-01-16 [facility] 1.2.840.114 [id number] Univers 14:01:00 23:59:00 Encounter Richard [facility] 350.1.13.10 ity of [place]2.7.2.[place] C[place] AT [phone] Al dicgreta VICTORY 804 [facility] 2020-01-16 2020-01-16 Outpatient R [facility] [id number] Univers 14:01:39 14:01:39 [facility] 2019-12-29 2019-12-29 [facility] [id number] Univers 10:11:26 23:59:00 [facility]ARD [facility] 2019-12-29 2019-12-29 [facility] 1.2.840.114 [id number] Univers 10:11:00 23:59:00 Encounter Richard [facility] 350.1.13.10 ity of Surgical 4.2.7.2.686 Maxi as Specialti [phone] Al dical es 809 [facility] 2019-12-29 2019-12-29 Office [facility] 1.2.585.474 [id number] Univers 09:49:51 10:39:38 Visit Richard [facility] 350.1.13.10 it y of Surgical 4.2.7.2.686 Maxi as Specialti [phone] Al dical es 198 [facility] 2019-12-29 2019-12-29 Outpatient R [facility] [id number] Univers 09:45:00 10:39:38 RICHARDBEVERLY freeman [facility] 2019-10-23 2019-10-23 AppointOBED [facility] 5 [id number] [place] 10:15:00 10:15:00 t; Estephania IZQUIERDO Sugar Physi cynthia FULTON M.D. Land 2 POD ans Gini IZQUIERDO M.D. 2019-08-17 2019-08-17 Outpatient MHIE MHIE [id number] Memoria 13:00:00 13:00:00 06 radha [place] 2019-08-17 2019-08-17 Outpatient MHIE MHIE [id number] Memoria 13:00:00 13:00:00 06 radha [place] 2019-08-02 2019-08-02 [facility] 1.2.840.114 [id number] Univers 00:00:00 00:00:00 Carlos Eduardo [place] 350.1.13.10 it[place].2.686 [place] [facility] [phone] [place] 754909 [facility] 2019-07-27 2019-07-28 Emergency Critical access hospital 1.2.627.840 [id number] Univers 23:42:49 02:16:00 Edson Dorita [place] 350.1.13.10 it[place].2.686 [place] [phone] [facility] [address] 2019-07-03 2019-07-03 Orders Doctor PENDING S[facility] TO [facility] 1.2.840.114 [id number] Univers 00:00:00 00:00:00 Only Unassigned, ESPERANZA 350.1.13.10 ity of [facility] 4.2.7.2.686 Maxi as [phone] [facility] [address] 2019-05-02 2019-05-02 Ambulatory nullFlavo MNA [id number] Memoria 18:15:00 18:15:00 Pre-Reg r Neurology 05 l [place] 2019-05-02 2019-05-02 Ambulatory nullFlavo MNA [id number] Memoria 18:15:00 18:15:00 Pre-Reg r Neurology 05 l [place] 2019-05-02 2019-05-02 Outpatient MHIE MHIE [id number] Memoria 13:15:00 13:15:00 05 radha [place] 2019-05-02 2019-05-02 Outpatient BERYL CaSCHLISA [id number] 13:15:00 13:15:00 Rasheed Rico 2018-12-15 2018-12-15 AppointOBED [facility] 4 [id number] [place] 09:00:00 09:00:00 t; Adriana IZQUIERDO M.D. ans CANDICE, M.D. 2018-11-24 2018-11-[address] [facility] UTP [id number] [place] 11:00:00 11:00:00 t; Adriana IZQUIERDO M.D. ans CANDICE, M.D. 2018-11-01 2018-11-02 Outpatient nullFlavo MNA [id number] Memoria 20:15:00 05:59:59 r Neurology 04 l [place] 2018-11-01 2018-11-02 Outpatient nullFlavo MNA [id number] Memoria 20:15:00 05:59:59 r Neurology 04 l [place] 2018-11-01 2018-11-01 Outpatient Roby MHMISCHER MHMISCHER [id number] 14:15:00 23:59:59 Rasheed Alberto Jacky 2018-11-01 2018-11-01 Outpatient MHIE MHIE [id number] Memoria 14:15:00 14:15:00 04 radha [place] 2018-10-31 2018-10-31 [facility] [id number] [place] 09:00:00 09:00:00 t; AGA HOLLY M.D. y Physici BINH, M.D. [facility] 2018-10-26 2018-10-27 Outpt Diag nullFlavo [facility] [id number] Memoria 18:59:00 05:59:00 Services r Outpatient 02 l Imaging [facility] [place] [place] 2018-10-26 2018-10-27 Outpt Diag nullFlavo [facility] [id number] Memoria 18:59:00 05:59:00 Services r Outpatient 02 l [facility] 2018-10-26 2018-10-26 Outpatient Kirstin, 2.16.840. 2.16.840.1. [id number] 12:59:00 23:59:00 Ida [id number]. [id number] Dina 3.615.30 5.30 2018-09-16 2018-09-16 [facility] 4 [id number] [place] 11:00:00 11:00:00 t; Adriana IZQUIERDO M.D. ans CANDICE, M.D. 2018-09-15 2018-09-15 Marcinlizzy KIRSTIN [facility] [id number] [place] 10:30:00 10:30:00 t; Adriana IZQUIERDO M.D. ans CANDICE, M.D. 2018-08-05 2018-08-05 Outpatient MHIE MHIE [id number] Memoria 10:45:00 10:45:00 03 radha Stephan 2018-08-05 2018-08-05 Outpatient MHIE MHIE [id number] Memoria 10:45:00 10:45:00 03 radha Stephan 2018-07-15 2018-07-[address] [facility] Trang [id number] [place] 09:00:00 09:00:00 t; AGA HOLLY M.D. [place] Physici BINH, M.D. [facility] 2018-05-05 2018-05-05 Outpatient MHIE MHIE [id number] Memoria 10:15:00 10:15:00 02 radha [place] 2018-05-05 2018-05-05 Outpatient MHIE MHIE [id number] Memoria 10:15:00 10:15:00 02 radha [place] 2018-04-22 2018-04-22 [facility] ELAYNE [facility] UTP [id number] [place] 08:00:00 08:00:00 t; AGA HOLLY M.D. Physici BINH, M.D. [facility] 2018-03-01 2018-03-01 [facility] CANON [facility] UTP [id number] [place] 10:45:00 10:45:00 t; ART PERRIN ans 2018-02-22 2018-02-22 Outpatient MHIE MHIE [id number] Memoria 09:15:00 09:15:00 01 l [place] 2018-02-22 2018-02-22 Outpatient MHIE MHIE [id number] Memoria 09:15:00 09:15:00 01 l Stephan 2018-01-11 2018-01-11 Outpatient MHIE MHIE [id number] Memoria 08:45:00 08:45:00 00 l Stephan 2018-01-11 2018-01-11 Outpatient MHIE MHIE [id number] Memoria 08:45:00 08:45:00 00 radha [place] 2017-08-03 2017-08-03 Appointmen TAZ, UTP UTP [id number] [place] 15:15:00 15:15:00 t; TYREE MCGHEE, Phys ici TYREE, DPM ans DP 2017-07-06 2017-07-06 Appointmen , UTP UTP [id number] [place] 10:45:00 10:45:00 t; AYDIN, ART Phys ici ART ans 2017-06-17 2017-06-17 Appointmen TAZ, UTP UTP [id number] [place] 13:30:00 13:30:00 t; TYREE MCGHEE, Phys ici TYREE, DPM ans [facility] 2017-06-10 2017-06-10 Appointmen AYDIN, UTP UTP [id number] [place] 14:30:00 14:30:00 t; AYDIN, ART Phys ici ART ans 2017-05-18 2017-05-18 Appointmen AYDIN, UTP UTP [id number] [place] 10:15:00 10:15:00 t; AYDIN, ART Phys ici ART ans 2017-02-26 2017-02-26 Appointmen AYDIN, UTP UTP [id number] [place] 09:15:00 09:15:00 t; AYDIN, ART Phys ici ART ans 2017-01-20 2017-01-21 Outpt Diag nullFlavo [facility] [id number] Memoria 18:10:00 05:59:00 Services r Outpatient 01 l Imaging - Marcin [facility] 2017-01-20 2017-01-21 Outpt Diag nullFlavo [facility] [id number] Memoria 18:10:00 05:59:00 Services r Outpatient 01 l [facility] 2017-01-20 2017-01-20 Outpatient Malani, MH35 MH35 [id number] 12:10:00 23:59:00 Chloé 2017-01-10 2017-01-11 Outpt Diag nullFlavo [facility] [id number] Memoria 18:22:00 05:59:00 Services r Outpatient 00 l [facility] 2017-01-10 2017-01-11 Outpt Diag nullFlavo [facility] [id number] Memoria 18:22:00 05:59:00 Services r Outpatient 00 l Imaging [facility] [place] [place] 2017-01-10 2017-01-10 Outpatient Sulaiman, 2.16.840. 2.16.840.1. 8 [id number] 12:22:00 23:59:00 Chloé [id number]. 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 T2 hyperintensity again noted in the right B2hozvbuj and the sacralized vertebral body, probably related to facet synovitiswithout additional signs of infection. There is moderate left L5-S1 joint fluidwith extradural synovial cyst, without additional signs of infection. L3-4retrolisthesis measures 4 mm. Mild type I (fibrovascular or edematous) endplatechanges are noted at L2-3, without additional signs of infection. The vertebraeare otherwise normal in shape, signal intensity and alignment. Theparavertebral soft tissues are normal.The conus medullaris terminates normally at the L1-L2 level. There is nointradural mass lesion.T12-L1: There is preservation of the disc signal intensity, height, with nobulging, herniation, spinal stenosis, or neural foraminal stenosis.L1-L2: Disc is desiccated with preserved disc height and 2 mm disc bulge. Noherniation, spinal stenosis, or neural foraminal stenosis.L2-L3: Disc is mildly desiccated with preserved disc height. No bulging,herniation, spinal stenosis, or neural foraminal stenosis.L3-L4: Disc is desiccated with preserved disc height. Minimal disc bulge withmidline annular fissuring, exaggerated by the retrolisthesis with minimal facethypertrophy. This results in mild bilateral neural foraminal narrowing. Nofocal disc herniation or significant canal stenosis. L4-L5: Disc is desiccated with preserved disc height. Disc bulge/foraminaldisc osteophyte complexes measure up to 6 mm with moderate facet hypertrophy,joint fluid, and mild ligamentum flavum thickening. Epidural lipomatosis causesslight buckling of posterior dura. This results in moderate right greater thanleft canal lateral recess narrowing with crowding of the nerve roots andimpingement on the descending L5 nerve roots. Moderate right and severe leftneural foraminal narrowing compression of the left and deformity of the rightL4 nerve roots.L5-S1: Well hydrated hypoplastic disc. Minimal disc bulge with mild facethypertrophy on the right greater than left. There is mild extra foraminalstenosis related to the sacral alar pseudojoint spurring. No focal discherniation or significant canal/neural foraminal narrowing.IMPRESSION:1 . Interval T2 hyperintensity related to L2-3 likely due to type I endplatechanges. Continued T2 hyperintensity of the right L5 pedicle probably due tofacet synovitis, without additional signs for infection or trauma. If there isclinical concern for infection, consider correlation with white blood cellcount, C-reactive protein, and sedimentation rate.2. L3-4 retrolisthesis. If there is clinical concern for instability, considerflexion-extens ion views.3. Moderate canal lateral recess narrowing at L4-5. Multilevel foraminalnarrowing including compression of the left and deformity of the right L4 nerveroots.--Read by: Seth Amaral MDDictated Date/time: 10/27/18 10:02Electronically Signed by: Seth Amaral MD 10/27/1810:15FINAL REPORT Tobacco Use Screening 2018-09-12 08:11:17 Test Item Value Reference Range Interpretation Comme nts Completed (test code = Completed) DONE [facility][QL] SED RATE BY MODIFIED [id number] 10:23:01 Test Item Value Reference Range Interpretation Comments Sedimentation Rate (test code = 2 {mm/hr} 0-15 64936-4) [facility][QL] CMP [id number] 10:23:01 Test Item Value Reference Range Interpretation Comments Sodium Level 138 {mEq/l} 135-145 (test code = 2951-2) Potassium Level 4.4 {mEq/l} 3.5-5.1 (test code = 2823-3) Chloride Level 98 {mEq/l} 95-109 (test code = 2075-0) Carbon Dioxide 29 {mEq/l} 24-32 (test code = 8-9) AGAP (test code = 15.4 {mEq/l} 10.0-20.0 04457-0) Glucose Lvl (test 98 mg/dl 70-99 Adult refe rence range code = 2345-7) values reflec t the clinical guidel inesof the [place] Diabet es Association. Creatinine Lvl 1.00 mg/dl 0.50-1.40 (test code = 2160-0) Blood Urea 18 mg/dl 7-22 Nitrogen (test code = 3094-0) BUN/Creatinine 18 6-25 Ratio (test code = 3097-3) Total Protein 7.3 g/dl 6.4-8.4 (test code = 2885-2) Albumin Lvl (test 4.0 g/dl 3.5-5.0 code = 1751-7) Globulin (test 3.3 g/dl 2.7-4.2 code = 78203-9) A/G Ratio (test 1.2 0.7-1.6 code = 1759-0) Calcium Level 9.0 mg/dl 8.5-10.5 Total (test code = 27976-6) ALT (test code = 38 u/l 0-65 1743-4) AST (test code = 22 u/l 0-37 16526-8) Bili Total (test 0.7 mg/dl 0.2-1.3 code = 1974-2) Alk Phos (test 61 u/l 39-136 code = 1783-0) eGFR (test code = 84 The eGFR i s calculated 25471-5) {ML/MIN/1.7} using the CKD-E PI formula. In mos t young, healthyindividu als the eGFR will be >9 0 mL/min/1.73m2. The eGFR declines with a ge. AneGFR of 60-89 may be normal in some population s, particularly th e elderly, forwhom the CKD -EPI formula has not been extensively nain idated. Use of the eGFR isnot recommended in the following populations:Ind ividuals with unstable c reatinine concentrations, including patient s and those with seri ous co-morbid conditions.Ashley ents with extremes in mus monie mass or diet.The oh a above are obtained fr om the National Kidney Disease Education [facility] am(NKDEP) which sukhjinder bird recommends that when the eGFR is used in patientswith ex tremes of body mass index for purposes of nadia g dosing, the eGFR should be multiplied by t he estimated BMI. [facility][QL] C-REACTIVE [id number] 10:23:01 Test Item Value Reference Range Interpretation Comments CRP (test code = CRP) <2.9 <=2.9 [facility][QL] CBC (INCLUDES DIFF/PLT)2018-07-15 10:23:01 Test Item Value Reference Range Interpretation Comments WBC (test code = 9.3 {K/CMM} 3.7-10.4 6690-2) RBC (test code = 5.47 {M/CMM} 4.70-6.10 789-8) Hgb (test code = 16.5 g/dl 14.0-18.0 718-7) Hct (test code = 48.4 % 42.0-54.0 94698-2) MCV (test code = 88.4 fL 80.0-94.0 787-2) MCH (test code = 30.2 pg 27.0-31.0 785-6) MCHC (test code = 34.2 g/dl 32.0-36.0 786-4) RDW; Above High 16.4 % 11.5-14.5 Threshold (test code = 788-0) Platelet (test code See Note 133-450 Platelet estimate = 70803-6) appears adequat e. Unable to deter mine accurate count due toplatelet clum ps. Mean Platelet Volume 7.9 fL 7.4-10.4 (test code = 92689-5) [facility]] [id number] 10:23:01 Test Item Value Reference Range Interpretation Comments Segmented Neutrophils (test code 56.9 % 45.0-75.0 = 69780-1) Monocytes (test code = 40043-0) 7.0 % 2.0-12.0 Lymphocytes (test code = 45319-4) 35.0 % 20.0-40.0 Eosinophils (test code = 34606-8) 0.9 % 0.0-4.0 Basophils (test code = 706-2) 0.2 % 0.0-1.0 Segs-Bands # (test code = 5.3 {K/CMM} 1.5-8.1 12379-4) Lymphocytes # (test code = 3.3 {K/CMM} 1.0-5.5 37752-2) Monocytes # (test code = 61719-3) 0.7 {K/CMM} 0.0-0.8 Eosinophils # (test code = 0.1 {K/CMM} 0.0-0.5 74433-5) RBC Morphology (test code = RBC Normal Morphology) Plt Morphology (test code = Plt Clumped Morphology) [facility][QH] CYCLIC CITRULLINATED PEPTIDE (CCP) AB (IGG)2018-07-15 10:23:01 Test Item Value Reference Range Interpretation Comments Cyclic Citrulline Peptide Antibody <0.5 <=2.9 (test code = 34588-2) [facility]
--- NOTE | 2023-02-09 21:03 | RAD REPORT ---
EXAM DESCRIPTION: CT - Head Brain Wo Cont - 02/09/2023 8:48 pm CLINICAL HISTORY: HEADACHE COMPARISON: Sinuses W/Wo Cont dated 01/25/2023; Sinus Wo Cont dated 03/02/2022 TECHNIQUE: All CT scans are performed using dose optimization technique as appropriate and may inclu de automated exposure control or mA/KV adjustment according to patient size. FINDINGS: No intracranial hemorrhage, hydrocephalus or extra-axial fluid collection.No areas of brai n edema or evidence of midline shift. The paranasal sinuses and mastoids are clear. The calvarium is intact. IMPRESSION: No acute intracranial abnormality.
--- NOTE | 2023-02-09 22:03 | EDPHYS ---
Physician Documentation [facility] Name: Alvaro Viveros Age: 62 yrs Sex: Male : 1960 Arrival Date: 02/09/2023 Time: 20:00 Bed 27 Private MD: ED Physician Lavinia Pennington HPI: 02/09 21:57 This 62 yrs old Male presents to ER via Ambulatory with complaints of Numbness sp3 Of Face, Headache. 21:57 62-year-old male with history of hyperlipidemia, hypertension, chronic headache disease sp3 (for 2 years) who is seeing neurology and getting cervical injections presents to the ED for chief complaint worsening headache and swelling around his neck of different lymph nodes which has been coming and going and are now mostly resolved. He states he came in because his insisted. Patient has no fever, URI symptoms, airway swelling, night sweats, weight loss, prior cancer history, changes in vision smell or senses. Systems is negative for chest pain, shortness of breath, back pain, abdominal pain, nausea, vomiting, diarrhea, focal neurodeficit, syncope, near syncope, rash, known sick contacts, travel history, or any other symptoms at this time.. Historical: - Allergies: 20:16 No Known Allergies; ll3 - Home Meds: 20:16 Tramadol Oral [Active]; diclofenac oral [Active]; pantoprazole oral [Active]; ll3 topiramate oral [Active]; atorvastatin oral [Active]; citalopram oral [Active]; phentermine oral [Active]; gabapentin oral [Active]; amlodipine oral [Active]; Furosemide Oral [Active]; carvedilol oral [Active]; losartan oral [Active]; - PMHx: 20:16 Hypercholesterolemia; Hypertensive disorder; Arthritis; ll3 - PSHx: 20:16 Appendectomy; ll3 - Immunization history:: Client reports receiving the 2nd dose of the Covid vaccine. - Social history:: Smoking status: Patient denies any tobacco usage or history of. ROS: 21:59 Constitutional: Negative for fever, chills, and weight loss, Eyes: Negative for injury, sp3 pain, redness, and discharge, ENT: Negative for injury, pain, and discharge, Neck: Negative for injury, pain, and swelling, Cardiovascular: Negative for chest pain, palpitations, and edema, Respiratory: Negative for shortness of breath, cough, wheezing, and pleuritic chest pain, Abdomen/GI: Negative for abdominal pain, nausea, vomiting, diarrhea, and constipation, Back: Negative for injury and pain, MS/Extremity: Negative for injury and deformity, Skin: Negative for injury, rash, and discoloration, Endocrine: Negative for neck swelling, polydipsia, polyuria, polyphagia, and marked weight changes, Hematologic/Lymphatic: Negative for swollen nodes, abnormal bleeding, and unusual bruising. 21:59 All other systems are negative. Exam: 22:00 Constitutional: This is a well developed, well nourished patient who is awake, alert, sp3 and in no acute distress. Head/Face: Normocephalic, atraumatic. Eyes: Pupils equal round and reactive to light, extra-ocular motions intact. Lids and lashes normal. Conjunctiva and sclera are non-icteric and not injected. Cornea within normal limits. Periorbital areas with no swelling, redness, or edema. ENT: Nares patent. No nasal discharge, no septal abnormalities noted. External auditory canals are clear. Oropharynx with no redness, swelling, or masses, exudates, or evidence of obstruction, uvula midline. Mucous membranes moist. Neck: Trachea midline, no thyromegaly or masses palpated, and no cervical lymphadenopathy. Supple, full range of motion without nuchal rigidity, or vertebral point tenderness. No Meningismus. Chest/axilla: Normal chest wall appearance and motion. Nontender with no deformity. No lesions are appreciated. Cardiovascular: Regular rate and rhythm with a normal S1 and S2. No gallops, murmurs, or rubs. Normal PMI, no JVD. No pulse deficits. Respiratory: Lungs have equal breath sounds bilaterally, clear to auscultation and percussion. No rales, rhonchi or wheezes noted. No increased work of breathing, no retractions or nasal flaring. Abdomen/GI: Soft, non-tender, with normal bowel sounds. No distension or tympany. No guarding or rebound. No evidence of tenderness throughout. Back: No spinal tenderness. No costovertebral tenderness. Full range of motion. Skin: Warm, dry with normal turgor. Normal color with no rashes, no lesions, and no evidence of cellulitis. MS/ Extremity: Pulses equal, no cyanosis. Neurovascular intact. Full, normal range of motion. Neuro: Awake and alert, GCS 15, oriented to person, place, time, and situation. Cranial nerves II-XII grossly intact. Motor strength 5/5 in all extremities. Sensory grossly intact. Cerebellar exam normal. Normal gait. Psych: Awake, alert, with orientation to person, place and time. Behavior, mood, and affect are within normal limits. 22:00 ENT: No current lymphadenopathy noted. Patient has normal exam.. Vital Signs: 20:12 BP 163 / 89; Pulse 92; Resp 18; Temp 98(O); Pulse Ox 98% on R/A; Weight 167.83 kg (R); ll3 Height 5 ft. 8 in. (R); Pain 8/10; 21:30 BP 150 / 94; Pulse 87; Resp 16; Pulse Ox 95% on R/A; Pain 6/10; pf1 22:20 BP 144 / 96; Pulse 88; Resp 16; Pulse Ox 96% on R/A; Pain 6/10; pf1 20:12 Body Mass Index 56.26 (167.83 kg, 172.72 cm) ll3 20:12 Pain Scale: Adult ll3 21:30 Pain Scale: Adult pf1 22:20 Pain Scale: Adult pf1 MDM: 20:25 Patient medically screened. sp3 22:01 Data reviewed: vital signs, nurses notes, radiologic studies. ED course: 62-year-old sp3 male with vague symptoms of headache and lymph node swelling which are now resolved. CT scan of the head is negative. Patient has extensive work-up as an outpatient is already plugged into neurology. Patient is safe and we will discharge him home at this time. No further intervention is indicated. He did recently start tramadol, diclofenac and pantoprazole which I suggested he may want to discontinue to see if that may make a difference or any possible allergic reaction causing his facial swelling.. 02/09 20:20 Order name: CT Head Brain wo Cont sp3 Administered Medications: No medications were administered Disposition Summary: 02/09/23 22:02 Discharge Ordered Location: Home sp3 Condition: Stable sp3 Diagnosis - Headache sp3 Followup: sp3 - With: Private Physician - When: Upon discharge from the Emergency Department - Reason: Continuance of care Discharge Instructions: - Discharge Summary Sheet sp3 - General Headache Without Cause sp3 Forms: - Medication Reconciliation Form sp3 - Thank You Letter sp3 - Antibiotic Education sp3 - Prescription Opioid Use sp3 Signatures: Dispatcher [employer] EDLavinia Judd MD MD sp3 Sherley Mclean RN RN ll3 Corrections: (The following items were deleted from the chart) 20:22 20:16 PMHx: Hypothyroidism; ll3 ll3
--- NOTE | 2023-02-09 22:03 | ER ---
Nurse's Notes [facility] Name: Alvaro Viveros Age: 62 yrs Sex: Male : 1960 Arrival Date: 02/09/2023 Time: 20:00 Bed 27 Private MD: Diagnosis: Headache Presentation: 02/09 20:12 Chief complaint: Patient states: States "I have neck problems, my doctor numbed some ll3 nerves about a year ago", c/o left sided facial numbness and swelling since . Coronavirus screen: Vaccine status: Patient reports receiving the 2nd dose of the covid vaccine. headache. Ebola Screen: No symptoms or risks identified at this time. Initial Sepsis Screen: Does the patient meet any 2 criteria? HR > 90 bpm. No. Patient's initial sepsis screen is negative. Does the patient have a suspected source of infection? No. Patient's initial sepsis screen is negative. Risk Assessment: Do you want to hurt yourself or someone else? Patient reports no desire to harm self or others. Onset of symptoms is unknown. 20:12 Method Of Arrival: Ambulatory 3 20:12 Acuity: MARSHA 3 ll3 Triage Assessment: 20:16 Headache History: The patient has had previous headaches and this one is similar to ll3 previous episodes. General: Appears uncomfortable, Behavior is calm, cooperative, Reports fatigue for. Pain: Complains of pain in right base of the skull Pain currently is 7 out of 10 on a pain scale. Quality of pain is described as pressure, Pain began 2 weeks. Pain: Also complains of nausea. Neuro: Level of Consciousness is awake, alert, obeys commands, Oriented to person, place, time, situation. Respiratory: Respiratory effort is even, unlabored, Respiratory pattern is regular, symmetrical. Derm: Skin is pink, warm \\T\\ dry. Historical: - Allergies: 20:16 No Known Allergies; ll3 - Home Meds: 20:16 Tramadol Oral [Active]; diclofenac oral [Active]; pantoprazole oral [Active]; ll3 topiramate oral [Active]; atorvastatin oral [Active]; citalopram oral [Active]; phentermine oral [Active]; gabapentin oral [Active]; amlodipine oral [Active]; Furosemide Oral [Active]; carvedilol oral [Active]; losartan oral [Active]; - PMHx: 20:16 Hypercholesterolemia; Hypertensive disorder; Arthritis; ll3 - PSHx: 20:16 Appendectomy; ll3 - Immunization history:: Client reports receiving the 2nd dose of the Covid vaccine. - Social history:: Smoking status: Patient denies any tobacco usage or history of. Screenin:30 [facility] ED Fall Risk Assessment (Adult) History of falling in the last 3 months, pf1 including since admission No falls in past 3 months (0 pts) Confusion or Disorientation No (0 pts) Intoxicated or Sedated No (0 pts) Impaired Gait No (0 pts) Mobility Assist Device Used No (0 pt) Altered Elimination No (0 pt) Score/Fall Risk Level 0 - 2 = Low Risk Oriented to surroundings, Maintained a safe environment, Educated pt \\T\\ family on fall prevention, incl call for assistance when getting out of bed, Assessed \\T\\ reinforced patient's understanding of fall precautions, Provided non-skid footwear, Hourly rounding (assess needs \\T\\ fall precautionary measures) done, Used ambulatory aids as needed (educated on \\T\\ assisted with), Used gait belt as appropriate. 21:30 Abuse screen: Denies threats or abuse. Nutritional screening: No deficits noted. pf1 Tuberculosis screening: No symptoms or risk factors identified. Assessment: 21:30 General: Appears in no apparent distress. comfortable, obese, well groomed, well pf1 developed, Behavior is calm, cooperative, appropriate for age, quiet. 21:30 Pain: Complains of pain in right base of the skull Pain currently is 6 out of 10 on a pf1 pain scale. Neuro: Level of Consciousness is awake, alert, obeys commands, Oriented to person, place, time, situation, Reports headache occipital area, since 3 days. Cardiovascular: No deficits noted. Capillary refill < 3 seconds Patient's skin is warm and dry. Respiratory: No deficits noted. Airway is patent Trachea midline Respiratory effort is even, unlabored, Respiratory pattern is regular, symmetrical, Breath sounds are clear bilaterally. GI: No deficits noted. No signs and/or symptoms were reported involving the gastrointestinal system. : No deficits noted. No signs and/or symptoms were reported regarding the genitourinary system. EENT: No deficits noted. No signs and/or symptoms were reported regarding the EENT system. Derm: hives to left side neck,onset Wednesday. Patient stated thinks he is having a reaction to some new medication he started taking. Patient stated intermittent hives around neck,onset Wednesday with intermittent swelling to left side of lips with left side facial swelling,onset Wednesday. Musculoskeletal: Reports pain in right base of the skull with chronic neck pain. Vital Signs: 20:12 BP 163 / 89; Pulse 92; Resp 18; Temp 98(O); Pulse Ox 98% on R/A; Weight 167.83 kg (R); ll3 Height 5 ft. 8 in. (R); Pain 8/10; 21:30 BP 150 / 94; Pulse 87; Resp 16; Pulse Ox 95% on R/A; Pain 6/10; pf1 22:20 BP 144 / 96; Pulse 88; Resp 16; Pulse Ox 96% on R/A; Pain 6/10; pf1 20:12 Body Mass Index 56.26 (167.83 kg, 172.72 cm) ll3 20:12 Pain Scale: Adult ll3 21:30 Pain Scale: Adult pf1 22:20 Pain Scale: Adult pf1 ED Course: 20:00 Patient arrived in ED. [id number] 20:16 Lavinia Pennington MD is Attending Physician. sp3 20:16 Triage completed. ll3 20:16 Arm band placed on Patient placed in waiting room, Patient notified of wait time. ll3 20:48 CT completed. Patient tolerated procedure well. [id number] 20:49 CT Head Brain wo Cont In Process Unspecified. EDMS 21:30 Patient has correct armband on for positive identification. Bed in low position. Call pf1 light in reach. 21:47 Ramona belcher, ELISE is Primary Nurse. pf1 22:29 No provider procedures requiring assistance completed. Patient did not have IV access pf1 during this emergency room visit. Administered Medications: No medications were administered Medication: 22:31 VIS not applicable for this client. pf1 Outcome: 22:02 Discharge ordered by . sp3 22:30 Discharged to home ambulatory. pf1 22:30 Condition: good 22:30 Discharge instructions given to patient, Instructed on discharge instructions, follow up and referral plans. Demonstrated understanding of instructions, follow-up care. 22:31 Patient left the ED. pf1 Signatures: Dispatcher [employer] EDMS Christine Gee rg4 Lavinia Pennington MD MD sp3 Sherley Mclean RN RN ll3 Yue Hylton [id number] Ramona belcher RN RN pf1 Corrections: (The following items were deleted from the chart) :22 20:16 PMHx: Hypothyroidism; ll3 ll3
[2023-02-09 22:50] VITALS: TEMP 98
[2023-02-09 22:53] VITALS: BP 144/96; O2SAT 96
== END 2023-02-09 22:31 | disposition home or self-care (01) ==
LOC: ER 19:58
DX: R51.9 Headache, unspecified (principal); I10 Essential (primary) hypertension
CPT/HCPCS: 70450

== ENCOUNTER 2023-06-23 16:10 | Emergency (ER) | payer MEDICARE ==
--- OUTSIDE RECORDS SUMMARY | 2023-06-23 16:16 | XMS REPORT | Continuity of Care Document ---
:1960 Author Organization [facility] t Address [address] [facility] [address] [place] [address] Care Team Providers Name Role Phone Good Malone DO Primary Care Physician Molina Calix Attending Clinician Unavailable TAY DOMINGUEZ Attending Clinician Unavailable Rasheed Ca Attending Clinician Pedro --Kari Attending Clinician Madelien Zamarripa Attending Clinician Lizet Attending Clinician Unavailable Doctor Unassigned, [place] Attending Clinician Unavailable Dayanara Jacobo MD Attending Clinician CARLOS EDUARDO MARTINEZ Attending Clinician Unavailable Carlos Eduardo Martinez MD Attending Clinician Neha Sargent Attending Clinician Good Malone DO Attending Clinician ERNST Attending Clinician Unavailable DAYANARA JACOBO Attending Clinician Unavailable DAYANARA JACOBO Attending Clinician Unavailable MARGRET LOZANO Attending Clinician Unavailable SHIVANI ORNELAS Attending Clinician Unavailable Good Malone DO Attending Clinician GOOD MALONE Attending Clinician Unavailable Pob, [facility] Attending Clinician Unavailable RICHARD BANERJEE Attending Clinician Unavailable Richard Banerjee MD Attending Clinician MERCED CAOSTA Attending Clinician Unavailable PIPER MARTINEZ Attending Clinician [...] Number Effective Date Expiration Date S david YAMILINA/BENIP [id number] 2020 MEDICARE ADVANTAGE 00:00:00 [facility] [employer] [id number] 2021 (MEDICARE 00:00:00 REPLACEMENT HMO) Problems Condition Condition Condition Status Onset Resolution Last Treating Co mments Source Name Details Category Date Date Treatment Clinician Date MORBID MORBID Diagnosis Active 2020-08-26 Me moria OBESITY OBESITY 08-13 13:59:00 l Active 00:00: Stephan 08/13/2020 [facility] MORDID MORDID Diagnosis Active 2020-08-07 Me moria OBESITY OBESITY 07-31 09:03:00 l Active 00:00: Stephan 07/31/2020 [facility] SCREENING SCREENING Diagnosis Active 2020-08-06 Memoria FOR FOR 05-14 19:48:00 l DISORDERS DISORDERS 00:00: Herm samuel OF TWO OF TWO 00 DIGESTIVE DIGESTIVE Active 05/14/2020 [facility] Chronic Chronic Disease Active Univers heart heart 4-13 ity of failure failure 00:00: [place] with with 00 Medical preserved preserved Bran ch ejection ejection fraction fraction Essential Essential Disease Active Uni vers hypertensi hypertensi 4-13 it y of on on 00:00: [place] 00 Medical Branch Paresthesi Paresthes Problem Active 2023-06-22 Memoria a ia 8-24 05:50:53 l (finding) (finding) 00:00: Herm samuel Active 00 07/15/2017 Problem 06/22/2023 [facility] Carpal Carpal Problem Active 2023-06-22 Adán nayana tunnel tunnel 6- 05:50:53 l syndrome syndrome 00:00: Marcin n (disorder) (disorder) 00 Active 05/12/2017 Problem 06/22/2023 [facility] Common Common Problem Active 2023-06-22 Adán nayana peroneal peroneal - 05:50:53 l nerve nerve 00:00: [place] lesion lesion 00 (disorder) (disorder) Active 05/12/2017 Problem 06/22/2023 [facility] M54.9 - M54.9 - Diagnosis Active 2017-01-20 Memoria "DORSALGIA "DORSALGIA 2-19 12:19:00 l , , 00:01: Stephan UNSPECIFIE UNSPECIFIE 00 D" D" Active 01/10/2017 BALBIR Peterson Morbid Morbid Disease Active 2015-11 Univers [...] Me dical of of Branch 40.0-49.9 40.0-49.9 Other Other Problem 2019-05-16 [facility] spondylosi spondylosi 11:22:17 l s, lumbar s, lumbar Herm samuel region region 05/16/2019 [facility] Depressive Depressiv Problem Resolve 2022-08-30 Memoria disorder e disorder d 21:38:44 l (disorder) (disorder) He rmann Resolved Problem 08/30/2022 [facility] Dyspnea on Dyspnea Problem Resolve 2022-08-30 Memoria exertion on d 21:38:44 l (finding) exertion Gabbi nn (finding) Resolved Problem 08/30/2022 [facility] Edema of Edema of Problem Resolve 2022-08-30 Memoria extremity extremity d 21:38:44 l (finding) (finding) Herm samuel Resolved Problem 08/30/2022 [facility] Obstructiv Obstructi Problem Resolve 2022-08-30 Memoria e sleep ve sleep d 21:38:44 l apnea apnea [place] syndrome syndrome (disorder) (disorder) Resolved Problem 08/30/2022 [facility] Arthralgia Arthralgia Problem Active [facility] T of [...] of left of left ans shoulder shoulder Cervical Cervical Problem Active 2023-06-22 Memoria radiculopa radiculopa 05:50:53 l thy thy Stephan (disorder) (disorder) Active Problem 06/22/2023 [facility] [place] Cervical Cervical Problem Active 2023-06-22 Memoria spondylosi spondylosi 05:50:53 l s s Stephan (disorder) (disorder) Active Problem 06/22/2023 [facility] [place] Hypertensi Hypertens Problem Active 2023-06-22 Memoria ve yareli 05:50:53 l disorder, disorder, Herm samuel systemic systemic arterial arterial (disorder) (disorder) Active Problem 06/22/2023 [facility] Lumbar Lumbar Problem Active 2023-06-22 Adán nayana radiculopa radiculopa 05:50:53 l thy thy [place] (disorder) (disorder) Active Problem 06/22/2023 [facility] Headache Headache Problem Active 2023-06-22 Memoria (finding) (finding) 05:50:53 l Active Stephan Problem 06/22/2023 [facility] [place] History of Past Illness Condition Condition Condition Status Onset Resolution Last Treating Co mments Source Name Details Category Date Date Treatment Clinician Date Spinal Spinal Problem [id number] 2019-05-16 Memoria stenosis, stenosis, 2-11 11:22:17 11:22:17 l lumbar lumbar 05:57: [place] region region 03 with with neurogenic neurogenic claudicati claudicati on on 11/01/2018 05/16/2019 [facility] Allergies, Adverse Reactions, Alerts Allergy Allergy Status Severity Reaction(s) Onset Inactive Treating Comm ents Source Name Type Date Date Clinician NO KNOWN Drug Active Univers ALLERGIE Class ity of [facility] [place] No Known No Known Active Memori a Medicati Medicati l on on [place] Allergie Allergie s s Family History Family Member Diagnosis Comments Start Date Stop Date Source Unknown Family Family history of Family History [facility] diabetes mellitus Natural father Diabetes [facility] Natural father Heart disease [facility] Natural father Hypertension [facility] Natural father Stroke [facility] sister Diabetes [facility] Social History Social Habit Start Date Stop Date Quantity Comments Source Gender identity 2021-11-14 Identifies as male M ethodist 23:01:40 gender (finding) Hospital Sexual orientation 2021-11-14 Heterosexual Meth odist 23:01:40 (finding) Hospital Tobacco use and 2021-11-18 2021-11-18 Smokeless tobacco Me thodist exposure 00:00:00 00:00:00 non-user Hospital Alcohol intake 2021-11-18 2021-11-18 Ex-drinker Tenriism 00:00:00 00:00:00 (finding) Hospital History of Social 2021-11-18 2021-11-[address] function 00:00:00 00:00:00 Hospital Sex Assigned At [birth year] M Tenriism 00:00:00 00:00:00 Hospital Smoking Status Start Date Stop Date Source Tobacco smoking status [facility] Medications Ordered Filled Start Stop Current Ordering Indication Dosage Frequency Signature Comments Components Source Medication Medication Date Date Medication? Clinician (SIG) Name Name topiramate Yes = 1 tab, Mem oria 50 mg oral 6-02 PO, l tablet 16:24: Bedtime, # Gabbi nn 00 90 tab, 1 Refill(s), [facility]acy[id number], 170.18, cm, 03/10/23 9:54:00 CDT, Height, 165, kg, 03/10/23 9:54:00 CDT, Weight diclofenac Yes 0 Memoria potassium 4-19 Refill(s) l 50 mg oral 14:58: Stephan tablet Ozempic Yes SUB-Q, Memoria 4-19 qWeek, 0 l 14:57: Refill(s) Stephan 00 Topamax 50 Yes 50 mg = 1 Me moria mg oral 3-08 tab, PO, l tablet 15:32: Bedtime, # Gabbi nn 00 30 tab, 3 Refill(s), Pharmacy: [id number], 170.18, cm, 01/27/23 9:02:00 [employer]APTED 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, Height, 167.727, kg, 01/27/23 9:02:00 ADAPTED 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, Weight Topamax 50 0 Yes 50 mg = 1 Me moria mg oral 3-08 tab, PO, l tablet 15:32: Bedtime, # Gabbi nn 00 30 tab, 3 Refill(s), Pharmacy: [id number], 170.18, cm, 01/27/23 9:02:00 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, Height, 167.727, kg, 01/27/23 9:02:00 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 gabapentin 2021-11 Yes TAKE 1 Memor ia [...] A DAY IF NEEDED FOR MODERATE PAIN tramadol 50 2021-11 Yes TAKE 1 Adán nayana mg oral 0-12 TABLET (50 l tablet 20:02: MG TOTAL) Marcin n 00 BY MOUTH 2 (TWO) TIMES A DAY IF NEEDED FOR MODERATE PAIN testosteron 2020-[address] Me thodi e 10 mg/0.5 2-[address] gram 09:40: Hospita /actuation 19 l gel in metered-dos e pump testosteron 2020-[address] Me thodi e 10 mg/0.5 2-[address] gram 09:40: Hospita /actuation 19 l gel in metered-dos e pump testosteron 2020-[address] Me thodi e 10 mg/0.5 2-[address] gram 09:40: Hospita /actuation 19 l gel in metered-dos e pump cyclobenzap 2020-11 Yes 10mg Q.5D Take 10 mg Methodi rine 2-[address] (FLEXERIL) 09:40: (two) Hospit a 10 mg 18 times a l tablet day. cyclobenzap 2020-11 Yes 10mg Q.5D Take 10 mg Methodi rine 2-[address] (FLEXERIL) 09:40: (two) Hospit a 10 mg 18 times a l tablet day. cyclobenzap 2020-11 Yes 10mg Q.5D Take 10 mg Methodi rine 2-[address] (FLEXERIL) 09:40: (two) Hospit a 10 mg 18 times a l tablet day. traMADoL 2020-11 Yes 50mg Q.25D Take 50 mg Me thodi (ULTRAM) 50 2-[address] mg tablet 00:00: (four) Hospit a 00 times a l day as needed. traMADoL 2020-11 Yes 50mg Q.25D Take 50 mg Me thodi (ULTRAM) 50 2-[address] mg tablet 00:00: (four) Hospit a 00 times a l day as needed. traMADoL 2020-11 Yes 50mg Q.25D Take 50 mg Me thodi (ULTRAM) 50 2-[address] mg tablet 00:00: (four) Hospit a 00 times a l day as needed. furosemide 2020-11 Yes 20mg Q.5D Take 20 mg M ethodi (LASIX) 20 2-[address] mg tablet 00:00: (two) Hospita 00 times a l day. furosemide 2020-11 Yes 20mg Q.5D Take 20 mg M ethodi (LASIX) 20 2-[address] mg tablet 00:00: (two) Hospita 00 times a l day. furosemide 2020-11 Yes 20mg Q.5D Take 20 mg M ethodi (LASIX) 20 2-[address] mg tablet 00:00: (two) Hospita 00 times a l day. losartan 50 2020-11 Yes [id number] 100mg Take 2 Univers mg tablet 1-23 tablets by ity of 00:00: mouth [place] 00 daily. Medical Branch losartan 50 2020-11 Yes [id number] 100mg Take 2 Univers mg tablet 1-23 tablets by ity of 00:00: mouth [place] 00 daily. Medical Branch losartan 50 2020-11 Yes [id number] 100mg Take 2 Univers mg tablet 1-23 tablets by ity of 00:00: mouth [place] 00 daily. Medical Branch losartan 50 2020-11 Yes [id number] 100mg Take 2 Univers mg tablet 1-23 tablets by ity of 00:00: mouth [place] 00 daily. Medical Branch losartan 50 2020-11 Yes [id number] 100mg Take 2 Univers mg tablet 1-23 tablets by ity of 00:00: mouth [place] 00 daily. Medical Branch losartan 50 2020-11 Yes [id number] 100mg Take 2 Univers mg tablet 1-23 tablets by ity of 00:00: mouth [place] 00 daily. Medical Branch losartan 50 2020-11 Yes [id number] 100mg Take 2 Univers mg tablet 1-23 tablets by ity of 00:00: mouth [place] 00 daily. Medical Branch losartan 50 2020-11 Yes [id number] 100mg Take 2 Univers mg tablet 1-23 tablets by ity of 00:00: mouth [place] 00 daily. Medical Branch losartan 50 2020-11 Yes [id number] 100mg Take 2 Univers mg tablet 1-23 tablets by ity of 00:00: mouth [place] 00 daily. Medical Branch gabapentin 2020-11 Yes 300mg Q.[id number] Take 300 Methodi (NEURONTIN) 1-10 [id number] mg by s t 300 mg 00:00: 3D mouth 3 Hospita capsule 00 (three) l times a day. gabapentin 2020-11 Yes 300mg Q.[id number] Take 300 [facility] (NEURONTIN) 1-10 [id number] mg by s t 300 mg 00:00: 3D mouth 3 Hospita capsule 00 (three) l times a day. gabapentin 2020-11 Yes 300mg Q.[id number] Take 300 Methodi (NEURONTIN) 1-10 [id number] mg by s t 300 mg 00:00: 3D mouth 3 Hospita capsule 00 (three) l times a day. carvediloL 2020-11 Yes 25mg Q.5D Take 25 mg M ethodi (COREG) 25 1-[address] MG tablet 00:00: (two) Hospita 00 times a l day. carvediloL 2020-11 Yes [id number] 25mg Take 1 U nivers 25 mg 1-05 tablet by ity of tablet 00:00: mouth 2 00 (two) Medical times [place] daily with meals. carvediloL 2020-11 Yes [id number] 25mg Take 1 U nivers 25 mg 1-05 tablet by ity of tablet 00:00: mouth 2 00 (two) Medical times Branch daily with meals. carvediloL 2020-11 Yes [id number] 25mg Take 1 U nivers 25 mg 1-05 tablet by ity of tablet 00:00: mouth [place] (two) Medical times Branch daily with meals. carvediloL 2020-11 Yes [id number] 25mg Take 1 U nivers 25 mg 1-05 tablet by ity of tablet 00:00: mouth [place] (two) Medical times Branch daily with meals. carvediloL 2020-11 Yes [id number] 25mg Take 1 U nivers 25 mg 1-05 tablet by ity of tablet 00:00: mouth [place] (two) Medical times Branch daily with meals. carvediloL 2020-11 Yes [id number] 25mg Take 1 U nivers 25 mg 1-05 tablet by ity of tablet 00:00: mouth [place] (two) Medical times Branch daily with meals. carvediloL 2020-11 Yes [id number] 25mg Take 1 U nivers 25 mg 1-05 tablet by ity of tablet 00:00: mouth [place] (two) Medical times Branch daily with meals. carvediloL 2020-11 Yes [id number] 25mg Take 1 U nivers 25 mg 1-05 tablet by ity of tablet 00:00: mouth [place] (two) Medical times Branch daily with meals. carvediloL 2020-11 Yes [id number] 25mg Take 1 U nivers 25 mg 1-05 tablet by ity of tablet 00:00: mouth [place] (two) Medical times Branch daily with meals. carvediloL 2020-11 Yes 25mg Q.5D Take 25 mg M ethodi (COREG) 25 1-[address] MG tablet 00:00: (two) Hospita 00 times a l day. carvediloL 2020-11 Yes 25mg Q.5D Take 25 mg M ethodi (COREG) 25 1-[address] MG tablet 00:00: (two) Hospita 00 times a l day. citalopram 2020-11 Yes 40mg Take 40 mg U nivers (CELEXA) 40 11-22 by mouth ity of mg tablet 10:14: daily. [place] [id number] Medical Branch indomethaci 2020-11 Yes 75mg Take 75 mg Univers n (INDOCIN 1-01 by mouth 2 ity of SR) 75 mg 10:14: (two) [place] CR capsule 44 times Medical daily with Branch meals. citalopram 2020-11 Yes 40mg Take 40 mg U nivers (CELEXA) 40 1-01 by mouth ity of mg tablet 10:14: daily. [address] indomethaci 2020-11 Yes 75mg Take 75 mg Univers n (INDOCIN 1 by mouth 2 ity of SR) 75 mg 10:14: (two) [place] CR capsule 44 times Medical daily with Branch meals. citalopram 2020-11 Yes 40mg Take 40 mg U nivers (CELEXA) 40 1-01 by mouth ity of mg tablet 10:14: daily. [address] indomethaci 2020-11 Yes 75mg Take 75 mg Univers n (INDOCIN 101 by mouth 2 ity of SR) 75 mg 10:14: (two) [place] CR capsule 44 times Medical daily with Branch meals. citalopram 2020-11 Yes 40mg Take 40 mg U nivers (CELEXA) 40 1-01 by mouth ity of mg tablet 10:14: daily. [address] indomethaci 2020-11 Yes 75mg Take 75 mg Univers n (INDOCIN 1 by mouth 2 ity of SR) 75 mg 10:14: (two) [place] CR capsule 44 times Medical daily with Branch meals. citalopram 2020-11 Yes 40mg Take 40 mg U nivers (CELEXA) 40 1-01 by mouth ity of mg tablet 10:14: daily. [address] indomethaci 2020-11 Yes 75mg Take 75 mg Univers n (INDOCIN 1-01 by mouth 2 ity of SR) 75 mg 10:14: (two) [place] CR capsule 44 times Medical daily with Branch meals. citalopram 2020-11 Yes 40mg Take 40 mg U nivers (CELEXA) 40 1-01 by mouth ity of mg tablet 10:14: daily. [address] indomethaci 2020-11 Yes 75mg Take 75 mg Univers n (INDOCIN 1-01 by mouth 2 ity of SR) 75 mg 10:14: (two) [place] CR capsule 44 times Medical daily with Branch meals. citalopram 2020-11 Yes 40mg Take 40 mg U nivers (CELEXA) 40 1-01 by mouth ity of mg tablet 10:14: daily. [address] indomethaci 2020-11 Yes 75mg Take 75 mg Univers n (INDOCIN 1-01 by mouth 2 ity of SR) 75 mg 10:14: (two) [place] CR capsule 44 times Medical daily with Branch meals. citalopram 2020-11 Yes 40mg Take 40 mg U nivers (CELEXA) 40 1-01 by mouth ity of mg tablet 10:14: daily. [address] indomethaci 2020-11 Yes 75mg Take 75 mg Univers n (INDOCIN 1-01 by mouth 2 ity of SR) 75 mg 10:14: (two) [place] CR capsule 44 times Medical daily with Branch meals. citalopram 2020-11 Yes 40mg Take 40 mg U nivers (CELEXA) 40 1-01 by mouth ity of mg tablet 10:14: daily. [address] indomethaci 2020-11 Yes 75mg Take 75 mg Univers n (INDOCIN 1-01 by mouth 2 ity of SR) 75 mg 10:14: (two) [place] CR capsule 44 times Medical daily with Branch meals. furosemide 2020-11 Yes [id number] 80mg Take 2 U nivers 40 mg 1-01 tablets by ity of tablet 00:00: mouth [place] 00 every Medical morning. Branch furosemide 2020-11 Yes [id number] 80mg Take 2 U nivers 40 mg 1-01 tablets by ity of tablet 00:00: mouth [place] 00 every Medical morning. Branch furosemide 2020-11 Yes [id number] 80mg Take 2 U nivers 40 mg 1-01 tablets by ity of tablet 00:00: mouth [place] 00 every Medical morning. Branch furosemide 2020-11 Yes [id number] 80mg Take 2 U nivers 40 mg 1-01 tablets by ity of tablet 00:00: mouth [place] 00 every Medical morning. Branch furosemide 2020-11 Yes [id number] 80mg Take 2 U nivers 40 mg 1-01 tablets by ity of tablet 00:00: mouth [place] 00 every Medical morning. Branch furosemide 2020-11 Yes [id number] 80mg Take 2 U nivers 40 mg 1-01 tablets by ity of tablet 00:00: mouth [place] 00 every Medical morning. Branch furosemide 2020-11 Yes [id number] 80mg Take 2 U nivers 40 mg 1-01 tablets by ity of tablet 00:00: mouth [place] 00 every Medical morning. Branch furosemide 2020-11 Yes [id number] 80mg Take 2 U nivers 40 mg 1-01 tablets by ity of tablet 00:00: mouth [place] 00 every Medical morning. Branch furosemide 2020-11 Yes [id number] 80mg Take 2 U nivers 40 mg 1-01 tablets by ity of tablet 00:00: mouth [place] 00 every Medical morning. Branch atorvastati 2020-11 Yes 10mg QD Take 10 mg Methodi n (LIPITOR) 0-[address] 10 mg 00:00: daily. Hospita tablet 00 l atorvastati 2020-11 Yes 10mg QD Take 10 mg Methodi n (LIPITOR) 0-[address] 10 mg 00:00: daily. Hospita tablet 00 l atorvastati 2020-11 Yes 10mg QD Take 10 mg Methodi n (LIPITOR) 0-[address] 10 mg 00:00: daily. Hospita tablet 00 l citalopram 2021- No 20mg QD Take 20 mg Methodi (CeleXA) 20 08-[address] MG tablet 00:00: 04:59 daily. Hospi ta 00 :00 l citalopram 2021- No 20mg QD Take 20 mg Methodi (CeleXA) 20 08-[address] MG tablet 00:00: 04:59 daily. Hospi ta 00 :00 l citalopram 2021- No 20mg QD Take 20 mg Methodi (CeleXA) 20 08-[address] MG tablet 00:00: 04:59 daily. Hospi ta 00 :00 l indomethaci Yes 25mg Q.[id number] Take 25 mg Methodi n (INDOCIN) 07-30 [id number] mouth [address] 25 MG 00:00: 3D (three) Hospita capsule 00 times a l day. indomethaci 2020-0 Yes 25mg Q.[id number] Take 25 mg Methodi n (INDOCIN) 07-30 [id number] mouth [address] 25 MG 00:00: 3D (three) Hospita capsule 00 times a l day. indomethaci 1-0 Yes 25mg Q.[id number] Take 25 mg Methodi n (INDOCIN) 9-[id number] 25 MG 00:00: 3D (three) Hospita capsule 00 times a l day. ibuprofen 2020-0 Yes [id number] 600mg Take 1 Univers 600 mg 6-05 [id number] tablet by ity of tablet 00:00: mouth [place] 00 every 6 Medical (six) Branch hours as needed for Pain (scale 4-6). ibuprofen 2020-0 Yes [id number] 600mg Take 1 Univers 600 mg 6-05 [id number] tablet by ity of tablet 00:00: mouth [place] 00 every 6 Medical (six) Branch hours as needed for Pain (scale 4-6). ibuprofen 2020-0 Yes [id number] 600mg Take 1 Univers 600 mg 6-05 [id number] tablet by ity of tablet 00:00: mouth [place] 00 every 6 Medical (six) Branch hours as needed for Pain (scale 4-6). ibuprofen 2020-0 Yes [id number] 600mg Take 1 Univers 600 mg 6-05 [id number] tablet by ity of tablet 00:00: mouth [place] 00 every 6 Medical (six) Branch hours as needed for Pain (scale 4-6). ibuprofen 2020-0 Yes [id number] 600mg Take 1 Univers 600 mg 6-05 [id number] tablet by ity of tablet 00:00: mouth [place] 00 every 6 Medical (six) Branch hours as needed for Pain (scale 4-6). ibuprofen 2020-0 Yes [id number] 600mg Take 1 Univers 600 mg 6-05 [id number] tablet by ity of tablet 00:00: mouth [place] 00 every 6 Medical (six) Branch hours as needed for Pain (scale 4-6). ibuprofen 2020-0 Yes [id number] 600mg Take 1 Univers 600 mg 6-05 [id number] tablet by ity of tablet 00:00: mouth [place] 00 every 6 Medical (six) Branch hours as needed for Pain (scale 4-6). ibuprofen 2020-0 Yes [id number] 600mg Take 1 Univers 600 mg 6-05 [id number] tablet by ity of tablet 00:00: mouth [place] 00 every 6 Medical (six) Branch hours as needed for Pain (scale 4-6). ibuprofen 2020-0 Yes [id number] 600mg Take 1 Univers 600 mg 6-05 [id number] tablet by ity of tablet 00:00: mouth [place] 00 every 6 Medical (six) Branch hours [...] 800 mg 2-05 ity of tablet 00:00: [place] Medical Branch gabapentin 2020-0 Yes Univers 800 mg 2-05 ity of tablet 00:00: Medical Branch gabapentin 2020-0 Yes Univers 800 mg 2-05 ity of tablet 00:00: Medical Branch gabapentin 2020-0 Yes Univers 800 mg 2-05 ity of tablet 00:00: Medical Branch gabapentin 2020-0 Yes Univers 800 mg 2-05 ity of tablet 00:00: [place] [facility] Branch gabapentin 2020-0 Yes Univers 800 mg 2-05 ity of tablet 00:00: [place] [facility] gabapentin 2020-0 Yes Univers 800 mg 2-05 ity of tablet 00:00: [place] [facility] gabapentin 2020-0 Yes Univers 800 mg 2-05 ity of tablet 00:00: [place] [facility] Branch gabapentin 2020-0 Yes Univers 800 mg 2-05 ity of tablet 00:00: [place] [facility] Branch tadalafiL 2019- Yes 20mg Take 20 mg Me thodi (CIALIS) 20 1-[address] [facility]- Yes 20mg Take 20 mg Me thodi (CIALIS) 20 1-[address] mg tablet 00:00: [facility] l tadalafil 2019- Yes 20mg Take 20 mg Un herrera 20 mg 1-06 by mouth. ity of tablet 00:00: [place] [facility] Branch tadalafil 2019- Yes 20mg Take 20 mg Un herrera 20 mg 1-06 by mouth. ity of tablet 00:00: [place] [facility] Branch tadalafil 2019- Yes 20mg Take 20 mg Un herrera 20 mg 1-06 by mouth. ity of tablet 00:00: [place] [facility] Branch tadalafil 2019- Yes 20mg Take 20 mg Un herrera 20 mg 1-06 by mouth. ity of tablet 00:00: [place] [facility] Branch tadalafil 2019- Yes 20mg Take 20 mg Un herrera 20 mg 1-06 by mouth. ity of tablet 00:00: [place] [facility] Branch tadalafil 2019- Yes 20mg Take 20 mg Un herrera 20 mg 1-06 by mouth. ity of tablet 00:00: [place] [facility] Branch tadalafil 2019- Yes 20mg Take 20 mg Un herrera 20 mg 1-06 by mouth. ity of tablet 00:00: [place] [facility] Branch tadalafil 2019- Yes 20mg Take 20 mg Un herrera 20 mg 1-06 by mouth. ity of tablet 00:00: [address] Branch tadalafil 2019- Yes 20mg Take 20 mg Un herrera 20 mg 1-06 by mouth. ity of tablet 00:00: [address] tadalafiL 2019-1 Yes 20mg Take 20 mg Me thodi (CIALIS) 20 1-[address] mg tablet 00:00: Hospita 00 l clotrimazol [id number] Yes DA 2 GTS U nivers e 1 % 9-30 EXT AA BID ity of solution 00:00: [address] dexamethaso [id number] Yes INSTILL 2 U nivers ne 0.1 % 9-30 GTS INTO ity of ophthalmic 00:00: B[place] solution 00 BID [facility] clotrimazol [id number] Yes DA 2 GTS U nivers e 1 % 9-30 EXT AA BID ity of solution 00:00: [address] dexamethaso [address] Yes INSTILL 2 U nivers ne 0.1 % 9-30 GTS INTO ity of ophthalmic 00:00: [place] solution 00 BID [facility] clotrimazol 20190 Yes DA 2 GTS U nivers e 1 % 9-30 EXT AA BID ity of solution 00:00: [address] dexamethaso [address] Yes INSTILL 2 U nivers ne 0.1 % 9-30 GTS INTO ity of ophthalmic 00:00: [place] solution 00 BID [facility] clotrimazol [id number] Yes DA 2 GTS U nivers e 1 % 9-30 EXT AA BID ity of solution 00:00: [address] dexamethaso 2019-0 Yes INSTILL 2 U nivers ne 0.1 % 9-30 GTS INTO ity of ophthalmic 00:00[place] solution 00 BID [facility] clotrimazol 20190 Yes DA 2 GTS U nivers e 1 % 9-30 EXT AA BID ity of solution 00:00: [address] dexamethaso [address] Yes INSTILL 2 U nivers ne 0.1 % 9-30 GTS INTO ity of ophthalmic 00:00: [place] solution 00 BID [facility] clotrimazol 20190 Yes DA 2 GTS U nivers e 1 % 9-30 EXT AA BID ity of solution 00:00: [address] dexamethaso [address]90 Yes INSTILL 2 U nivers ne 0.1 % 9-30 GTS INTO ity of ophthalmic 00:00: [place] 00 BID [facility] clotrimazol 2019 Yes DA 2 GTS U nivers e 1 % 9-30 EXT AA BID ity of solution 00:00: [place] [facility] dexamethaso Yes INSTILL 2 U nivers ne 0.1 % 9-30 GTS INTO ity of ophthalmic 00:00: [place] solution 00 BID [facility] clotrimazol 2019 Yes DA 2 GTS U nivers e 1 % 9-30 EXT AA BID ity of solution 00:00: [facility] dexamethaso Yes INSTILL 2 U nivers ne 0.1 % 9-30 GTS INTO ity of ophthalmic 00:00: [place] solution 00 BID [facility] clotrimazol Yes DA 2 GTS U nivers e 1 % 9-30 EXT AA BID ity of solution 00:00: [facility] dexamethaso Yes INSTILL 2 U nivers ne 0.1 % 9-30 GTS INTO ity of ophthalmic 00:00: [place] solution 00 BID [facility] furosemide Yes 40 mg = 1 Me moria 40 mg oral 9-26 tab, PO, l tablet 18:17: Daily, 0 [place] 00 Refill(s) losartan 50 Yes 50 mg = 1 M emoria mg oral 9-26 tab, PO, l tablet 18:17: Daily, 0 [place] 00 Refill(s) montelukast Yes 10 mg = 1 M emoria 10 mg oral 9-26 tab, PO, l tablet 18:17: Daily, 0 [place] 00 Refill(s) furosemide Yes 40 mg = 1 Me [...] tablet 18:17: Daily, 0 Stephan 00 Refill(s) HYDROcodone 2019-0 Yes 1{tbl} Take 1 Un [...] as needed for Pain (scale 7-10). montelukast Yes 1{tbl} QD Take 1 Me thodi (SINGULAIR) 3-[address] 10 mg 00:00: [facility] tablet 00 nightly. l montelukast Yes 1{tbl} QD Take 1 Me thodi (SINGULAIR) 3-[address] 10 mg 00:00: mouth [facility]ospita tablet 00 nightly. l montelukast Yes 1{tbl} Take 1 Un herrera 10 mg 3-25 tablet by ity of tablet 00:00: mouth. [facility] montelukast Yes 1{tbl} Take 1 Un herrera 10 mg 3-25 tablet by ity of tablet 00:00: mouth. [facility] montelukast Yes 1{tbl} Take 1 Un herrera 10 mg 3-25 tablet by ity of tablet 00:00: mouth. [facility] montelukast Yes 1{tbl} Take 1 Un herrera 10 mg 3-25 tablet by ity of tablet 00:00: mouth. [facility] montelukast Yes 1{tbl} Take 1 Un herrera 10 mg 3-25 tablet by ity of tablet 00:00: mouth. [facility] montelukast Yes 1{tbl} Take 1 Un herrera 10 mg 3-25 tablet by ity of tablet 00:00: mouth. [facility] montelukast Yes 1{tbl} Take 1 Un herrera 10 mg 3-25 tablet by ity of tablet 00:00: mouth. [facility] montelukast Yes 1{tbl} Take 1 Un herrera 10 mg 3-25 tablet by ity of tablet 00:00: mouth. [place] [facility] montelukast Yes 1{tbl} Take 1 Un herrera 10 mg 3-25 tablet by ity of tablet 00:00: mouth. [facility] 2019-0 Yes 1{tbl} QD Take 1 Me thodi (SINGULAIR) 3-[address] 10 mg 00:00: mouth Hospita tablet 00 nightly. l citalopram 2018-0 Yes 40 mg = 1 Me moria 40 mg oral 6-14 tab, PO, l tablet 15:55: Daily, # Stephan 00 30 tab, 0 Refill(s) carvedilol 2018-0 Yes 25 mg = 1 Me moria 25 mg oral 6-14 tab, PO, l tablet 15:55: Q12H, # 60 Gabbi nn 00 tab, 0 Refill(s) citalopram 2018-0 Yes 40 mg = 1 Me moria 40 mg oral 6-14 tab, PO, l tablet 15:55: Daily, # [place] 00 30 tab, 0 Refill(s) carvedilol 2018-0 Yes 25 mg = 1 Me moria 25 mg oral 6-14 tab, PO, l tablet 15:55: Q12H, # 60 Gabbi nn 00 tab, 0 Refill(s) folic acid 2018-0 Yes 1 mg = 1 Mem oria 1 mg oral 2-20 tab, PO, l tablet 15:15: Daily, # Stephan 00 30 tab, 0 Refill(s) folic acid 2018-0 Yes 1 mg = 1 Mem oria 1 mg oral 2-20 tab, PO, l tablet 15:15: Daily, # [place] 00 30 tab, 0 Refill(s) traMADOL 50 2017-0 Yes 50mg Take 50 mg Univers mg tablet 08-20 by mouth 2 ity of 09:21: (two) [place] 49 times Medical daily. Branch traMADOL 50 2017-0 Yes 50mg Take 50 mg Univers mg tablet 08-20 by mouth 2 ity of 09:21: (two) [place] 49 times Medical daily. Branch traMADOL 50 2017-0 Yes 50mg Take 50 mg Univers mg tablet 08-20 by mouth 2 ity of 09:21: (two) [place] 49 times Medical daily. Branch traMADOL 50 2017-0 Yes 50mg Take 50 mg Univers mg tablet 08-20 by mouth 2 ity of 09:21: (two) [place] 49 times Medical daily. Branch traMADOL 50 2017-0 Yes 50mg Take 50 mg Univers mg tablet 08-20 by mouth 2 ity of 09:21: (two) [place] 49 times Medical daily. Branch traMADOL 50 2017-0 Yes 50mg Take 50 mg Univers mg tablet 08-20 by mouth 2 ity of 09:21: (two) [place] 49 times Medical daily. Branch traMADOL 50 2016-0 Yes 50mg Take 50 mg Univers mg tablet 08-20 by mouth 2 ity of 09:21: (two) [place] 49 times Medical daily. Branch traMADOL 50 2016-0 Yes 50mg Take 50 mg Univers mg tablet 08-20 by mouth 2 ity of 09:21: (two) [place] 49 times Medical daily. Branch traMADOL 50 2017-0 Yes 50mg Take 50 mg Univers mg tablet 08-20 by mouth 2 ity of 09:21: (two) [place] 49 times Medical daily. Branch Citalopram Citalopram [...] Immunizations Ordered Filled Immunization Date Status Comments [facility] e Immunization Name Name SARS-COV-2 COVID-19 2021-02-04 Completed Unive rsity of PFIZER VACCINE 00:00:00 [facility] SARS-COV-2 COVID-19 2021-02-04 Completed Unive rsity of PFIZER VACCINE 00:00:00 [facility] SARS-COV-2 COVID-19 2021-02-04 Completed Unive rsity of PFIZER VACCINE 00:00:00 [facility] SARS-COV-2 COVID-19 2021-02-04 Completed Unive rsity of PFIZER VACCINE 00:00:00 [facility] SARS-COV-2 COVID-19 2021-02-04 Completed Unive rsity of PFIZER VACCINE 00:00:00 [facility] SARS-COV-2 COVID-19 2021-02-04 Completed Unive rsity of PFIZER VACCINE 00:00:00 [facility] SARS-COV-2 COVID-19 2021-02-04 Completed Unive rsity of PFIZER VACCINE 00:00:00 [facility] Branch SARS-COV-2 COVID-19 2021-02-04 Completed Unive rsity of PFIZER VACCINE 00:00:00 [facility] SARS-COV-2 COVID-19 2021-02-04 Completed Unive rsity of PFIZER VACCINE 00:00:00 [facility] SARS-COV-2 COVID-19 2021-01-14 Completed Unive rsity of PFIZER VACCINE 00:00:00 [facility] SARS-COV-2 COVID-19 2021-01-14 Completed Unive rsity of PFIZER VACCINE 00:00:00 [facility] SARS-COV-2 COVID-19 2021-01-14 Completed Unive rsity of PFIZER VACCINE 00:00:00 [facility] SARS-COV-2 COVID-19 2021-01-14 Completed Unive rsity of PFIZER VACCINE 00:00:00 [facility] SARS-COV-2 COVID-19 2021-01-14 Completed Unive rsity of PFIZER VACCINE 00:00:00 [facility] SARS-COV-2 COVID-19 2021-01-14 Completed Unive rsity of PFIZER VACCINE 00:00:00 [facility] SARS-COV-2 COVID-19 2021-01-14 Completed Unive rsity of PFIZER VACCINE 00:00:00 [facility] SARS-COV-2 COVID-19 2021-01-14 Completed Unive rsity of PFIZER VACCINE 00:00:00 [facility] SARS-COV-2 COVID-19 2021-01-14 Completed Unive rsity of PFIZER VACCINE 00:00:00 [facility] Vital Signs Vital Name Observation Time Observation Value Comments Source Systolic (mm Hg) 2023-03-10 [facility] 14:[facility]:00 Diastolic (mm Hg) 2023-03-10 [facility] 14:46:00 Heart Rate 2023-03-10 [facility] 14:46:00 Height 2023-03-10 5 [ft_i] [facility] 14:46:00 Weight 2023-03-10 [facility] 14:46:00 BMI Calculated 2023-03-10 [facility] 14:46:00 BMI Calculated 2023-01-27 [facility] 14:52:00 Systolic (mm Hg) 2023-01-27 [facility] 14:52:00 Diastolic (mm Hg) 2023-01-27 [facility] 14:52:00 Heart Rate 2023-01-27 [facility] 14:52:00 Height 2023-01-27 5 [ft_i] [facility] 14:52:00 Weight 2023-01-27 [facility] 14:52:00 Systolic (mm Hg) 2022-10-09 [facility] 14:11:00 Diastolic (mm Hg) 2022-10-09 [facility] 14:11:00 Heart Rate 2022-10-09 [facility] 14:11:00 Height 2022-10-09 5 [ft_i] [facility] 14:11:00 Weight 2022-10-09 [facility] 14:11:00 BMI Calculated 2022-10-09 [facility] 14:11:00 Systolic (mm Hg) 2022-09-02 [facility] 19:21:00 Diastolic (mm Hg) 2022-09-02 [facility] 19:21:00 Heart Rate 2022-09-02 [facility] 19:21:00 Height 2022-09-02 5 [ft_i] [facility] 19:21:00 Weight 2022-09-02 [facility] 19:21:00 BMI Calculated 2022-09-02 [facility] 19:21:00 BMI Calculated 2018-11-01 [facility] 20:28:00 Weight 2018-11-01 [facility] 20:28:00 Height 2018-11-01 172.72 cm [facility] 20:28:00 Respitory Rate 2018-11-01 [facility] 20:28:00 Systolic (mm Hg) 2018-11-01 [facility] 20:28:00 Diastolic (mm Hg) 2018-11-01 [facility] 20:28:00 Heart Rate 2018-11-01 [facility] Marcin n 20:28:00 BP Systolic 2018-10-31 136 mm[Hg] Location: LUE; [facility] 08:45:00 Position: Sitting BP Diastolic 2018-10-31 [...] DME/SUPPLY JUSTIFICATION 2022-11-10 06:01:00 Doctor Unassigned, No [facility] Branch AUTHORIZATION FOR 2022-09-21 05:01:00 Doctor Unassigned, No [facility] RELEASE OF [facility] Name Medical Branch DME/SUPPLY JUSTIFICATION 2022-03-24 05:01:00 Doctor Unassigned, No [facility] [[facility]] Ortho - Surgery 2018-12-16 00:00:00 [facility] Isa[facility] kelly Scheduling MRI Spine lumbar wo 2018-09-16 00:00:00 [facility] contrast 09951 [[facility]] CBC (INCLUDES 2018-07-15 00:00:00 [facility] DIFF/PLT) [[facility]] CMP W/EGFR 2018-07-15 00:00:00 [facility] [[facility]] C-REACTIVE PROTEIN 2018-07-15 00:00:00 [facility] [[facility]] SED RATE BY 2018-07-15 00:00:00 [facility] MODIFIED WESTERGREN [QH] CYCLIC 2018-07-15 00:00:00 [facility] CITRULLINATED PEPTIDE (CCP) AB (IGG) History of Foot surgery [facility] Hernia [facility] repair<sup>1</sup> Appendectomy [facility] Achilles tendon repair [facility] Plan of Care Planned Activity Planned Date Details Comments Source Future Scheduled 2023-06-23 Screening for [facility] Test 16:13:12 malignant neoplasm of colon (procedure) [code = 119698193] Future Scheduled 2023-06-23 Screening for [facility] Test 16:13:12 malignant neoplasm of colon (procedure) [code = 859216276] Future Scheduled 2023-06-23 Pneumococcal Vaccine: [facility] Test 16:13:12 Pediatrics (0 to 5 Years) and At-Risk Patients (6 to 64 Years) (1 - PCV) [code = Pneumococcal Vaccine: Pediatrics (0 to 5 Years) and At-Risk Patients (6 to 64 Years) (1 - PCV)] Future Scheduled 2023-06-23 Hepatitis C screening [facility] Test 16:13:12 (procedure) [code = 074716238] Future Scheduled 2023-06-23 Screening for [facility] Test 16:13:12 malignant neoplasm of colon (procedure) [code = 371593652] Future Scheduled 2023-06-23 SHINGLES VACCINES (1 Met [facility] Test 16:13:12 of 2) [code = SHINGLES VACCINES (1 of 2)] Future Scheduled 2023-06-23 COVID-19 VACCINE (3 - [facility] Test 16:13:12 Pfizer series) [code = COVID-19 VACCINE (3 - Pfizer series)] Future Scheduled 2023-06-23 HEPATITIS B VACCINES Met [facility] Test 16:13:12 (1 of 3 - Risk 3-dose series) [code = HEPATITIS B VACCINES (1 of 3 - Risk 3-dose series)] Future Scheduled 2023-06-23 Screening for [facility] Test 16:13:12 malignant neoplasm of colon (procedure) [code = 758269282] Future Scheduled 2023-06-23 Screening for [facility] Test 16:13:12 malignant neoplasm of colon (procedure) [code = 460828746] Future Scheduled 2023-06-23 INFLUENZA VACCINE Method [facility] Test 16:13:12 [code = INFLUENZA VACCINE] Future Scheduled 2023-03-01 Pneumococcal Vaccine: [facility] Test 10:17:47 Pediatrics (0 to 5 Years) and At-Risk Patients (6 to 64 Years) (1 - PCV) [code = Pneumococcal Vaccine: Pediatrics (0 to 5 Years) and At-Risk Patients (6 to 64 Years) (1 - PCV)] Future Scheduled 2023-03-01 Hepatitis C screening [facility] Test 10:17:47 (procedure) [code = 228597375] Future Scheduled 2023-03-01 SHINGLES VACCINES (1 Met [facility] Test 10:17:47 of 2) [code = SHINGLES VACCINES (1 of 2)] Future Scheduled 2023-03-01 COLONOSCOPY SCREENING [facility] Test 10:17:47 [code = COLONOSCOPY SCREENING] Future Scheduled 2023-03-01 COVID-19 VACCINE (3 - [facility] Test 10:17:47 Booster for Pfizer series) [code = COVID-19 VACCINE (3 - Booster for Pfizer series)] Future Scheduled 2023-03-01 HEPATITIS B VACCINES Met [facility] Test 10:17:47 (1 of 3 - Risk 3-dose series) [code = HEPATITIS B VACCINES (1 of 3 - Risk 3-dose series)] Future Scheduled 2023-03-01 INFLUENZA VACCINE Method [facility] Test 10:17:47 [code = INFLUENZA VACCINE] Future Scheduled 2023-02-03 Pneumococcal Vaccine: [facility] Test 02:47:03 Pediatrics (0 to 5 Years) and At-Risk Patients (6 to 64 Years) (1 - PCV) [code = Pneumococcal Vaccine: Pediatrics (0 to 5 Years) and At-Risk Patients (6 to 64 Years) (1 - PCV)] Future Scheduled 2023-02-03 Hepatitis C screening [facility] Test 02:47:03 (procedure) [code = 272213869] Future Scheduled 2023-02-03 SHINGLES VACCINES (1 Met [facility] Test 02:47:03 of 2) [code = SHINGLES VACCINES (1 of 2)] Future Scheduled 2023-02-03 COLONOSCOPY SCREENING [facility] Test 02:47:03 [code = COLONOSCOPY SCREENING] Future Scheduled 2023-02-03 COVID-19 VACCINE (3 - Me [facility] Test 02:47:03 Booster for Pfizer series) [code = COVID-19 VACCINE (3 - Booster for Pfizer series)] Future Scheduled 2023-02-03 HEPATITIS B VACCINES Met [facility] Test 02:47:03 (1 of 3 - Risk 3-dose series) [code = HEPATITIS B VACCINES (1 of 3 - Risk 3-dose series)] Future Scheduled 2023-02-03 INFLUENZA VACCINE Method [facility] Test 02:47:03 [code = INFLUENZA VACCINE] Diagnostic Test 2018-12-16 [[facility]] [facility]o - [facility] Pending 00:00:00 Scheduling [code = [[facility]] Ortho - Surgery Scheduling] Encounters Start End Encounter Admission Attending Care Care Encounter Source Date/Time Date/Time Type Type Clinicians Facility Department ID 2023-06-14 Outpatient [facility]ix[facility] [id number] Common 09:07:01 Molina [id number] [facility] 2023-05-13 Outpatient [facility] [id number] Common 16:08:01 Molina [id number] [facility] 2023-04-[address] [facility] [id number] Common 14:27:01 Molina [id number] [facility] 2021-09-18 Emergency [facility] [id number] Univers 23:48:25 ity [facility] 2020-08-26 Outpatient [facility] [id number] M emoria 13:57:21 TAY Mcpherson [facility] 2020-08-06 Outpatient [facility] [id number] M emoria 13:18:14 [facility] 2020-05-15 Outpatient [facility] [id number] M emoria 12:08:50 TAY Rothman [facility] 2023-06-18 2023-06-20 Outside MHIE MNA [id number] Memoria 15:39:34 04:59:59 Medical Neurology 03 l Anai Rothman 2023-06-18 2023-06-19 Outpatient MHMISCHER MHMISCHER [id number] 10:39:34 23:59:59 03 2023-06-09 2023-06-09 Ambulatory MHIE MNA [id number] Memoria 14:45:00 14:45:00 Pre-Reg Neurology 13 l Sergio Rothman 2023-06-09 2023-06-09 Outpatient MHIE MHIE [id number] Memoria 09:45:00 09:45:00 13 radha Rothman 2023-06-09 2023-06-09 Outpatient LUCIEN CaSCHLISA MHMISCHER [id number] 09:45:00 09:45:00 Rasheed 13 Jacky 2023-05-28 2023-05-28 [facility] Kari 2.16.840. 2.16.840.1. CLAC [id number] Devoted 15:30:00 16:30:00 Dexter [id number]. [id number] [id number] [id number] 2023-03-10 2023-03-11 Outpatient MHIE MNA [id number] Memoria 14:45:00 04:59:59 Neurology 12 radha Rothman 2023-03-10 2023-03-10 Outpatient LUCIEN CaSCHLISA MHMISCHER [id number] 09:45:00 23:59:59 Rasheed 12 Jacky 2023-03-10 2023-03-10 Outpatient MHIE MHIE [id number] Memoria 09:45:00 09:45:00 12 radha Rothman 2023-03-10 2023-03-10 Outpatient MHIE MHIE [id number] Memoria 09:45:00 09:45:00 12 radha Rothman 2023-01-27 2023-01-28 Outpatient MHIE MNA [id number] Memoria 15:15:00 05:59:59 Neurology 11 radha Rothman 2023-01-27 2023-01-28 Outpatient MHIE MNA [id number] Memoria 15:15:00 05:59:59 Neurology 11 radha Rothman 2023-01-27 2023-01-27 Outpatient [id number] 09:15:00 23:59:59 Rasheed Olivia Rico 2023-01-27 2023-01-27 Outpatient MHIE MHIE [id number] Memoria 09:15:00 09:15:00 11 l Stephan 2023-01-12 2023-01-12 Ambulatory MHIE MNA [id number] Memoria 16:00:00 16:00:00 Pre-Reg Neurology 10 l Sergio Rothman 2023-01-12 2023-01-12 Ambulatory MHIE MNA [id number] Memoria 16:00:00 16:00:00 Pre-Reg Neurology 10 l Sergio Rothman 2023-01-12 2023-01-12 Outpatient MHIE MHIE [id number] Memoria 10:00:00 10:00:00 10 l Stephan 2023-01-12 2023-01-12 Outpatient [facility] [id number] 10:00:00 10:00:00 Rasheed Rico 2023-01-10 2023-01-10 Joann Correa 2.16.840. 2.16.840.1. CLAC XCREAU Devoted 15:30:00 16:00:00 [employer] Miftari [id number] ZW9 [place] [id number] 2022-12-08 2022-12-08 Outpatient Sheth_M DM DMG [id number] Devoted 00:00:00 00:00:00 0117 Medica l Group 2022-12-08 2022-12-08 Outpatient Sheth_M DMG DMG [id number] Devoted 00:00:00 00:00:00 0506 Medica l Group 2022-11-10 2022-11-10 Orders Doctor CROSS [id number] Univers 00:00:00 00:00:00 Only Unassigned, ESPERANZA 350.1.13.10 ity of [place] [facility] 4.2.7.2.686 Maxi as [id number] [facility] 009 Branch 2022-11-06 2022-11-06 Telephone Donnell [facility] 1.2.840.114 [id number] Univers 00:00:00 00:00:00 Strahil T HEALTH 350.1.13.10 [place] [id number] [facility] 084 Branch OFFICE BUILDING 2022-11-05 2022-11-05 [facility]phone [facility] 1.2.840.114 [id number] Univers 00:00:00 00:00:00 Strahil T MULTISPEC 350.1.13.10 [place] [id number] [facility] [place] 836205 [facility] 2022-10-09 2022-10-10 Outpatient MHIE MNA [id number] Memoria 14:15:00 05:59:59 Neurology 09 radha Rothman 2022-10-09 2022-10-10 Outpatient MHIE MNA [id number] Memoria 14:15:00 05:59:59 Neurology 09 radha Rothman 2022-10-09 2022-10-09 Outpatient JONNY CaMISCHER MHMISCHER [id number] 08:15:00 23:59:59 Rasheed Vincent Rico 2022-10-09 2022-10-09 Outpatient MHIE MHIE [id number] Memoria 08:15:00 08:15:00 09 radha Stephan 2022-09-22 2022-09-22 Outpatient Elliott MARTINEZ [facility] [id number] Univers 10:20:00 10:20:00 CARLOS EDUARDO olvera [facility] 2022-09-22 2022-09-22 Outpatient Elliott MARTINEZ [facility] [id number] Univers 10:20:00 10:20:00 CARLOS EDUARDO olvera [facility] 2022-09-21 2022-09-21 [facility]phone [facility] [id number] Univers 00:00:00 00:00:00 Carlos Eduardo [place] 350.1.13.10 ity of [place] [id number] N[place] dical NAL 059 [facility] 2022-09-21 2022-09-21 Orders Doctor TAY 1.2.840.114 [id number] Univers 00:00:00 00:00:00 Only Unassigned, ESPERANZA 350.1.13.10 [place] [facility] 4.2.7.2.686 Maxi as [id number] [facility] yareli 009 Branch 2022-09-04 2022-09-04 CAV Neha 2.16.840. 2.16.840.1. CLAC [id number] Devoted 14:30:00 15:30:00 Arie [id number]. [id number] 2FZ Medical [id number] 2022-09-02 2022-09-03 Outpatient nullFlavo MNA [id number] Memoria 19:00:00 04:59:59 r Neurology 08 l Sergio [place] 2022-09-02 2022-09-03 Outpatient nullFlavo MNA [id number] Memoria 19:00:00 04:59:59 r Neurology 08 l Sergio Rothman 2022-09-02 2022-09-02 Outpatient BERYL Ca MISCHER [id number] 14:00:00 23:59:59 Rasheed 08 Jacky 2022-09-02 2022-09-02 Outpatient MHIE MHIE [id number] Memoria 14:00:00 14:00:00 08 l Stephan 2022-08-28 2022-08-28 Ambulatory nullFlavo MNA [id number] Memoria 14:00:00 14:00:00 Pre-Reg r Neurology 07 l Sergio Rothman 2022-08-28 2022-08-28 Ambulatory nullFlavo MNA [id number] Memoria 14:00:00 14:00:00 Pre-Reg r Neurology 07 l Sergio Rothman 2022-08-28 2022-08-28 Outpatient MHIE MHIE [id number] Memoria 09:00:00 09:00:00 07 l Stephan 2022-08-28 2022-08-28 Outpatient [facility]L [id number] 09:00:00 09:00:00 Rasheed Rico 2022-08-28 2022-08-28 Transcribe [place], 1.2.840.1 [id number] Methodi 00:00:00 00:00:00 Orders [place]. [address]032.1.[address] 3.430.2.7 Hospit a .3.827723 l .8 2022-08-28 2022-08-28 Transcribe [place], 1.2.840.1 [id number] Methodi 00:00:00 00:00:00 Orders Good Cantu. 96395.1.[address] 3.430.2.7 Hospit a .3.085649 l .8 2022-06-25 2022-06-25 Outpatient AMBREEN_FAR [facility] 832 [facility] 00:00:00 00:00:00 HANA 0804 da [facility] Outre [facility] Program 2022-06-06 2022-06-06 Outpatient DMG [facility] [id number] Devoted 10:01:00 10:01:00 0716 Medica l Group 2022-03-24 2022-03-24 Telephone Donnell INMOISES 1.2.840.114 [id number] Univers 00:00:00 00:00:00 Dayanara [place] 350.1.13.10 [place] [id number] [facility]85 [facility] 2022-03-24 2022-03-24 Orders Doctor TAY 1.2.840.114 [id number] Univers 00:00:00 00:00:00 Only Unassigned, ESPERANZA 350.1.13.10 ity of [place] [facility] 4.2.7.2.686 Maxi as [id number] [place] [address] Branch 2022-02-11 2022-02-11 Office Donnell INMOISES [id number] [id number] Univers 11:40:00 12:00:00 Visit Strahil T [place] 350.1.13.10 it[place] [id number] [address] 2022-02-11 2022-02-11 Outpatient R DAYANARA JACOBO [facility] [id number] Univers 11:40:00 11:40:00 ATANASOV, LIOHIL ity of [facility] 2022-01-08 2022-01-08 [facility] 1.2.840.114 [id number] Univers 00:00:00 00:00:00 Strahil T [place] 350.1.13.10 ity of [place] [id number] [address] 2022-01-08 2022-01-08 Orders Doctor TAY 1.2.840.114 [id number] Univers 00:00:00 00:00:00 Only Unassigned, ESPERANZA 350.1.13.10 ity of [place] [facility] 4.2.7.2.686 Maxi as [id number] [address] 2022-01-01 2022-01-01 Telephone [facility] 1.2.840.114 [id number] Univers 00:00:00 00:00:00 Stra[place] T [place] [id number] [id number] [id number] [address] 2021-12-09 2021-12-09 Outpatient DMG DMG [id number] [facility] 03:00:00 03:00:00 0118 [facility] 2021-11-26 2021-11-26 [facility] 1.2.840.114 [id number] Univers 00:00:00 00:00:00 Stra[place]il T [place] [id number] [id number] [phone] [place] [address] [facility] 2021-11-18 2021-11-18 Outpatient BLAKE, [facility] [id number] [address] [place] 00:00:00 00:00:00 MARGRET [address] [facility] 2021-11-18 2021-11-18 Outpatient SHIVANI ORNELAS [facility] [id number] [place] 00:00:00 00:00:00 960 [facility] 2021-10-29 2021-10-29 Telephone Donnell [facility] 1.2.840.114 [id number] [facility] 00:00:00 00:00:00 Dayanara KC 350.1.13.10 it[place] [phone] [place] dical NAL 085 [facility] 2021-10-13 2021-10-13 [facility] 1.2.840.114 [id number] [facility] 00:00:00 00:00:00 Carlos Eduardo KC 350.1.13.10 it[place] of [place] [phone] [place] dical NAL 059 [facility] 2021-09-26 2021-09-26 Outpatient DMG DMG [id number] [facility] 11:00:00 11:00:00 1105 [facility] 2021-09-25 2021-09-25 [facility] 1.2.840.114 [id number] Univers 00:00:00 00:00:00 Carlos Eduardo KC 350.1.13.10 it[place] of [place] [phone] Nc dical NAL 059 [facility] 2021-09-22 2021-09-22 Outpatient R ROBERT [facility] [id number] Univers 10:20:00 10:39:45 CARLOS EDUARDO freeman o f [facility] 2021-09-22 2021-09-22 Office [facility] 1.2.840.114 [id number] Univers 10:01:41 10:39:45 Visit Carlos Eduardo KC 350.1.13.10 it[place] of [place] [phone] Nc dical NAL 059 [facility] 2021-09-22 2021-09-22 Outpatient [facility] [id number] Univers 10:20:00 10:20:00 CARLOS EDUARDO freeman o f [facility] 2021-09-03 2021-09-03 [facility] 1.2.468.960 [id number] Univers 11:44:03 23:59:00 Encounter Good Kc 350.1.13.10 ity [facility] [place]2.7.2.[place] [phone] [facility] [address] [place] 2021-09-03 2021-09-03 Outpatient R [facility] [id number] Univers 00:00:00 00:00:00 GOOD freeman [facility] 2021-09-01 2021-09-01 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, [facility] Main [facility] 1.2.8 40.114 [id number] Univers 09:12:30 12:05:45 Visit Carlos Eduardo Martinezton 350.1.13.10 ity [facility] [place] [phone] Nc dical nal 353 [facility] 2021-09-01 2021-09-01 Outpatient Elliott MARTINEZ [facility] [id number] Univers 09:15:00 09:15:00 CARLOS EDUARDO freeman o f [facility] 2021-09-01 2021-09-01 Orders Doctor CROSS 1.2.840.114 [id number] Univers 00:00:00 00:00:00 Only Unassigned, ESPERANZA 350.1.13.10 ity of [place] [facility] 4.2.7.2.686 Maxi as [phone] [facility] [address] 2021-08-20 2021-08-20 Outpatient R CHRISS [facility] [id number] Univers 15:30:00 15:30:00 RICHARD freeman [facility] 2021-08-20 2021-08-20 Office [facility] 1.2.143.073 [id number] Univers 15:30:00 15:30:00 Visit [facility] 350.1.13.10 it y of [facility] 4.2.7.2.686 Maxi as JOSE?BLEA [phone] Nc kaelyn BOBO 198 [facility] OFFICE [facility] 2021-08-20 2021-08-20 Outpatient R CHRISS [facility] [id number] Univers 15:30:00 13:17:57 RICHARD ithari [facility] 2021-08-20 2021-08-20 Office [facility] 1.2.543.355 [id number] Univers 12:52:55 13:17:57 Visit Richard [facility] 350.1.13.10 it y of [place] 4.2.7.2.686 Maxi as Jose?Blea [phone] [facility] 198 [facility] Office [facility] 2021-07-14 2021-07-14 Refyadira [facility] 1.2.840.114 [id number] Univers 00:00:00 00:00:00 Norberthilario Kc 350.1.13.10 [place] Profess[place] [phone] [facility] nal [address] [place] [address] 2021-06-02 2021-06-02 Outpatient R ROBERT, [facility] [id number] Univers 11:20:00 11:20:00 NORBERTHILARIO pete o [facility] 2021-05-28 2021-05-28 Outpatient R ROBERT, [facility] [id number] Univers 13:40:00 13:40:00 NORBERTHILARIO pete o [facility] 2021-04-14 2021-04-14 Ref[facility]adira [facility] 1.2.840.114 [id number] Univers 00:00:00 00:00:00 Carlos Eduardo Kc 350.1.13.10 [place] Profess[place] [phone] [address] 2021-02-04 2021-02-04 Outpatient R KARLA, [facility] [id number] Univers 11:00:00 11:00:00 MERCED ity [facility] 2021-01-242021-01-24 Outpatient R MICHELLE [facility] [id number] Univers 10:30:00 10:30:00 PIPER ity [facility] 2021-01-21 2021-01-21 Telephone Chriss [facility] 1.2.840.114 [id number] Univers 00:00:00 00:00:00 Richard [facility] 350.1.13.10 it y of Surgical 4.2.7.2.686 Maxi as Specialti [phone] Nc dical es 198 [facility] 2021-01-14 2021-01-14 Outpatient R KARLA [facility] [id number] Univers 11:20:00 11:20:00 MERCED freeman [facility] 2020-12-20 2020-12-20 Telephone Robert [facility] 1.2.375.633 [id number] Univers 00:00:00 00:00:00 Carlos Eduardo [place] 350.1.13.10 [place] [phone] Nc dical nal 059 [facility] 2020-12-19 2020-12-19 Orders Doctor TAY 1.2.840.114 [id number] Univers 00:00:00 00:00:00 Only Unassigned, ESPERANZA 350.1.13.10 ity of [place] [facility] 4.2.7.2.686 Maxi as [phone] [address] 2020-12-04 2020-12-04 Outpatient R ROBERT [facility] [id number] Univers 09:00:00 09:00:00 CARLOS EDUARDO freeman o f [facility] 2020-11-21 2020-11-21 Outpatient R CHRISS [facility] [id number] Univers 09:00:00 09:00:00 RICHARD freeman [facility] 2020-08-08 2020-08-08 Outpatient R ARMINDA [facility] [id number] Univers 08:02:59 23:59:00 WENDY freeman [facility] 2020-08-08 2020-08-08 [facility] Arminda [facility] 1.2.840.114 [id number] Univers 08:00:00 23:59:00 Encounter Wendy Andre [place] 350.1.13.10 [place] [phone] [facility] [address] 2020-08-08 2020-08-08 Outpatient R ARMINDA [facility] [id number] Univers 00:00:00 00:00:00 WENDY ity [facility] 2020-06-14 2020-06-14 Orders Doctor TAY 1.2.840.114 [id number] Univers 00:00:00 00:00:00 Only Unassigned, ESPERANZA 350.1.13.10 it[place] of [place] [facility] 4.2.7.2.686 Maxi as [phone] [facility] [address] 2020-05-29 2020-05-29 Office Richard Banerjee [facility] 1.2.840. 114 [id number] Univers 14:07:54 14:45:55 Visit Piper Martinez [facility] 350.1.13.10 ity of Surgical 4.2.7.2.686 Maxi as Specialti [phone] Nc dical es 198 [facility] 2020-05-29 2020-05-29 Outpatient R [facility] [id number] Univers 14:15:00 14:15:00 [facility] 2020-05-14 2020-05-14 Telephone [facility] 1.2.981.597 [id number] Univers 00:00:00 00:00:00 Carlos Eduardo Barajaston 350.1.13.10 [place] [facility] [phone] Nc dical nal 059 [facility] 2020-01-24 2020-05-06 Office Chriss [facility] 1.2.452.079 [id number] Univers 15:01:45 16:33:12 Visit Richard [facility] 350.1.13.10 it y of Surgical 4.2.7.2.686 Maxi as Specialti [phone] Me dical es 198 [facility] 2020-05-01 2020-05-01 Outpatient R DAYANARA JACOBO [facility] [id number] Univers 09:00:00 09:00:00 LIO JACOBOHIL ity of [facility] 2020-04-26 2020-04-26 Emergency Asiya Christopher [facility] 1.2.840.114 [id number] Univers 19:59:21 21:23:00 Nevaeh Arcelia 350.1.13.10 i [place] [phone] [place] [address] [place] 2020-04-26 2020-04-26 Orders Doctor TAY 1.2.840.114 [id number] Univers 00:00:00 00:00:00 Only Unassigned, ESPERANZA 350.1.13.10 it[place] [facility] 4.2.7.2.686 Maxi as [phone] [address] 2020-03-07 2020-03-07 Orders Doctor TAY 1.2.840.114 [id number] Univers 00:00:00 00:00:00 Only Unassigned, ESPERANZA 350.1.13.10 it[place] [facility] 4.2.7.2.686 Maxi as [phone] [address] 2020-03-06 2020-03-06 Telephone [facility] 1.2.840.114 [id number] Univers 00:00:00 00:00:00 Dayanara Marilynn Arcel[place] 350.1.13.10 [place] [phone] Nc dical nal 085 [facility] 2020-03-04 2020-03-04 Telemedici [facility] 1.2.840.114 [id number] Univers 08:15:12 16:20:51 ne Visit Norberthilario Arcelia 350.1.13.10 [place] [phone] Nc dicvt nal 059 [facility] 2020-03-04 2020-03-04 Outpatient R ROBERT [facility] [id number] Univers 15:15:00 15:15:00 CARLOS EDUARDO freeman o f [facility] 2020-01-24 2020-01-24 Outpatient R CHRISS [facility] [id number] Univers 15:30:00 15:30:00 RICHARD freeman [facility] 2020-01-22 2020-01-22 OBED [facility] 5 [id number] [place] 10:45:00 10:45:00 t; IDA, - Sugar Physi ci Adelia [place] 2 POD ans Gini IZQUIERDO M.D. 2020-01-16 2020-01-16 Outpatient R [facility] [id number] Univers 14:01:39 23:59:00 RICHARDBEVERLY freeman [facility] 2020-01-16 2020-01-16 [facility] 1.2.840.114 [id number] Univers 14:01:00 23:59:00 Encounter Richard L SPECIALTY 350.1.13.10 ity of [place]2.[place].2.[place] CENTER AT [phone] Nc priyankgreta VICTORY 804 [facility] 2020-01-16 2020-01-16 Outpatient R [facility] [id number] Univers 14:01:39 14:01:39 RICHARD itUT [facility] 2019-12-29 2019-12-29 Outpatient [facility] [id number] Univers 10:11:26 23:59:00 RICHARD itUT [facility] 2019-12-29 2019-12-29 [facility] 1.2.840.114 [id number] Univers 10:11:00 23:59:00 Encounter Richard [facility] 350.1.13.10 ity of Surgical 4.2.7.2.686 Maxi as Specialti [phone] Nc dical es 809 [facility] 2019-12-29 2019-12-29 Office [facility] 1.2.834.017 [id number] Univers 09:49:51 10:39:38 Visit Richard L [facility] 350.1.13.10 it y of Surgical 4.2.7.2.686 Maxi as Specialti [phone] Nc dical es 198 [facility] 2019-12-29 2019-12-29 Outpatient [facility] [id number] Univers 09:45:00 10:39:38 RICHARD freeman [facility] 2019-10-23 2019-10-23 OBED [facility] 5 [id number] [place] 10:15:00 10:15:00 t; IDA, - Sugar Physi ci Adelia [place] 2 POD ans Gini IZQUIERDO M.D. 2019-08-17 2019-08-17 Outpatient MHIE MHIE [id number] Memoria 13:00:00 13:00:00 06 [place] 2019-08-17 2019-08-17 Outpatient MHAWA AWA [id number] Memoria 13:00:00 13:00:00 06 [facility] 2019-08-02 2019-08-02 Refill [facility] 1.2.840.114 [id number] Univers 00:00:00 00:00:00 Carlos Eduardo Kc 350.1.13.10 [place] [facility] [phone] [place] 753949 [facility] 2019-07-27 2019-07-28 Emergency [facility] 1.2.411.757 [id number] Univers 23:42:49 02:16:00 Edson Kc 350.1.13.10 [place] [phone] [facility] [address] [place] 2019-07-03 2019-07-03 Orders Doctor TAY 1.2.840.114 [id number] Univers 00:00:00 00:00:00 Only Unassigned, ESPERANZA 350.1.13.10 [place] [facility] 4.2.7.2.686 Maxi as [phone] [facility] [address] 2019-05-02 2019-05-02 Ambulatory nullFlavo MNA [id number] Memoria 18:15:00 18:15:00 Pre-Reg r Neurology 05 l [place] 2019-05-02 2019-05-02 Ambulatory nullFlavo MNA [id number] Memoria 18:15:00 18:15:00 Pre-Reg r Neurology 05 l [place] 2019-05-02 2019-05-02 Outpatient MHIE JONNYIE [id number] Memoria 13:15:00 13:15:00 05 l [place] 2019-05-02 2019-05-02 Outpatient LUCIEN CaSCHER MISCHER [id number] 13:15:00 13:15:00 Rasheed 05 Jacky 2018-12-15 2018-12-15 Russ MALONEETTE [facility] Orthopedics 4 [id number] [place] 09:00:00 09:00:00 t; Adriana IZQUIERDO M.D. ans CANDICE, M.D. 2018-11-24 2018-11-24 Marcinlizzy KIRSTIN [facility] UTP [id number] [place] 11:00:00 11:00:00 t; Adriana IZQUIERDO M.D. ans CANDICE, M.D. 2018-11-01 2018-11-02 Outpatient nullFlavo MNA [id number] Memoria 20:15:00 05:59:59 r Neurology 04 l Sergio Rothman 2018-11-01 2018-11-02 Outpatient nullFlavo MNA [id number] Memoria 20:15:00 05:59:59 r Neurology 04 l Sergio Penaann 2018-11-01 2018-11-01 Outpatient [facility] [id number] 14:15:00 23:59:59 Rasheed Alberto Rico 2018-11-01 2018-11-01 Outpatient MHIE MHIE [id number] Memoria 14:15:00 14:15:00 04 radha Rothman 2018-10-31 2018-10-31 Appointlizzy RANDOLPHUYEN [facility] Rheumatolog [id number] [place] 09:00:00 09:00:00 t; AGA HOLLY M.D. y Physici BINH, M.D. [place] 2018-10-26 2018-10-27 Outpt Diag nullFlavo [facility] [id number] Memoria 18:59:00 05:59:00 Services r Outpatient 02 l Imaging [facility] 2018-10-26 2018-10-27 Outpt Diag nullFlavo [facility] [id number] Memoria 18:59:00 05:59:00 Services r Outpatient 02 l [facility] 2018-10-26 2018-10-26 Outpatient Kirstin, 2.16.840. 2.16.840.1. [id number] 12:59:00 23:59:00 Ida [id number]. [id number] 02 Dina 3.615.30 5.30 2018-09-16 2018-09-16 OBED [facility] 4 [id number] [place] 11:00:00 11:00:00 t; Adriana IZQUIERDO M.D. ans CANDICE, M.D. 2018-09-15 2018-09-15 Russ [place] [facility] [id number] [place] 10:30:00 10:30:00 t; Adriana IZQUIERDO M.D. ans CANDICE, M.D. 2018-08-05 2018-08-05 Outpatient MHIE MHIE [id number] Memoria 10:45:00 10:45:00 03 radha Rothman 2018-08-05 2018-08-05 Outpatient MHIE MHIE [id number] Memoria 10:45:00 10:45:00 03 radha [place] 2018-07-15 2018-07-15 OBED Claros Trang [id number] [place] 09:00:00 09:00:00 t; AGA HOLLY M.D. [place] Physici BINH, M.D. [place] 2018-05-05 2018-05-05 Outpatient MHIE MHIE [id number] Memoria 10:15:00 10:15:00 02 radha PenaStephan 2018-05-05 2018-05-05 Outpatient MHIE MHIE [id number] Memoria 10:15:00 10:15:00 02 [facility] 2018-04-22 2018-04-22 Russ HOLLY [facility] UTP [id number] [place] 08:00:00 08:00:00 t; AGA HOLLY M.D. Physici BINH, M.D. [place] 2018-03-01 2018-03-01 OBED Grimm [facility] [id number] [place] 10:45:00 10:45:00 t; ART PERRIN ans 2018-02-22 2018-02-22 Outpatient MHIE MHIE [id number] Memoria 09:15:00 09:15:00 01 l [place] 2018-02-22 2018-02-22 Outpatient MHIE MHIE [id number] Memoria 09:15:00 09:15:00 01 l [place] 2018-01-11 2018-01-11 Outpatient MHIE MHIE [id number] Memoria 08:45:00 08:45:00 00 l [place] 2018-01-11 2018-01-11 Outpatient MHIE MHIE [id number] Memoria 08:45:00 08:45:00 00 l Stephan 2017-08-03 2017-08-03 Appointmen TAZ, UTP UTP [id number] [place] 15:15:00 15:15:00 t; TYREE MCGHEE, Phys ici TYREE, DPM ans DPM 2017-07-06 2017-07-06 Appointmen AYDIN, UTP UTP [id number] [place] 10:45:00 10:45:00 t; AYDIN, ART Phys ici ART ans 2017-06-17 2017-06-17 Appointmen TAZ, UTP UTP [id number] [place] 13:30:00 13:30:00 t; TYREE MCGHEE, Phys ici TYREE, DPM ans DP 2017-06-10 2017-06-10 Appointmen , UTP UTP [id number] [place] 14:30:00 14:30:00 t; AYDIN, ART Phys ici ART ans 2017-05-18 2017-05-18 Appointmen AYDIN, UTP UTP [id number] [place] 10:15:00 10:15:00 t; AYDIN, ART Phys ici ART ans 2017-02-26 2017-02-26 Appointmen AYDIN, UTP UTP [id number] [place] 09:15:00 09:15:00 t; AYDIN, ART Phys ici ART ans 2017-01-20 2017-01-21 Outpt Diag nullFlavo [facility] [id number] Memoria 18:10:00 05:59:00 Services r Outpatient 01 l Imaging - Marcin sheyla [facility] 2017-01-20 2017-01-21 [place] [id number] Memoria 18:10:00 05:59:00 Services r Outpatient 01 l Imaging - Marcin n [facility] 2017-01-20 2017-01-20 Outpatient Malani, MH35 MH35 [id number] 12:10:00 23:59:00 Chloé 01 2017-01-10 2017-01-11 Outpt Diag nullFlavo [facility] [id number] [facility] 18:22:00 05:59:00 Services r Outpatient 00 l Imaging [facility] 2017-01-10 2017-01-11 Outpt Diag nullFlavo [facility] [id number] [facility] 18:22:00 05:59:00 Services r Outpatient 00 l Imaging [facility] 2017-01-10 2017-01-10 Outpatient Malani, 2.16.840. 2.16.840.1. 8 [id number] 12:22:00 23:59:00 Chloé [id number]. [id number] 00 3.615.30 5.30 Results Test Description Test Time Test Results Result Source Comments Comments MRI Spine lumbar Spine lumbar wo [facility] wo contrast 5 contrast MRI , [id number] 14:45:00 10/26/2018 2:45 PM ADAPTED 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.CLINICAL INDICATION:58 years Male - M47.896 Other spondylosis, lumbar region .Comparison: January 20, 2017.TECHNIQUE: Sagittal T1, sagittal T2 with fat saturation, axial T1 and axial I4caaefo were obtained.FINDINGS:Ther e is a transitional lumbosacral junction with right-sided sacralization ofL5 and a hypoplastic but fully formed L5-S1 disc with pseudojoint formationwith the right sacral ala. T2 hyperintensity again noted in the right O0zydcery and the sacralized vertebral body, probably related [...] Completed (test code = Completed) DONE [facility]] SED RATE BY MODIFIED [id number] 10:23:01 Test Item Value Reference Range Interpretation Comments Sedimentation Rate (test code = 2 {mm/hr} 0-15 58708-6) [facility]] CMP [id number] 10:23:01 Test Item Value Reference Range Interpretation Comments Sodium Level 138 {mEq/l} 135-145 (test code = 2951-2) Potassium Level 4.4 {mEq/l} 3.5-5.1 (test code = 2823-3) Chloride Level 98 {mEq/l} 95-109 (test code = 2075-0) Carbon Dioxide 29 {mEq/l} 24-32 (test code = 2027-9) AGAP (test code = 15.4 {mEq/l} 10.0-20.0 67674-3) Glucose Lvl (test 98 mg/dl 70-99 Adult refe rence range code = 2345-7) values reflec t the clinical guidel inesof the [place] Di[employer]et es Association. Creatinine Lvl 1.00 mg/dl 0.50-1.40 (test code = 2160-0) Blood Urea 18 mg/dl 7-22 Nitrogen (test code = 3094-0) BUN/Creatinine 18 6-25 Ratio (test code = 3097-3) Total Protein 7.3 g/dl 6.4-8.4 (test code = 2885-2) Albumin Lvl (test 4.0 g/dl 3.5-5.0 code = 1751-7) Globulin (test 3.3 g/dl 2.7-4.2 code = 95550-9) A/G Ratio (test 1.2 0.7-1.6 code = 1759-0) Calcium Level 9.0 mg/dl 8.5-10.5 Total (test code = 56436-9) ALT (test code = 38 u/l 0-65 3-4) AST (test code = 22 u/l 0-37 93234-8) Bili Total (test 0.7 mg/dl 0.2-1.3 code = 1974-) Alk Phos (test 61 u/l 39-136 code = 1783-0) eGFR (test code = 84 The eGFR i s calculated 00537-3) {ML/MIN/1.7} using the CKD-E PI formula. In [...] fr om the National Kidney Disease Education Progr am(NKDEP) which sukhjinder bird recommends that when the eGFR is used in patientswith ex tremes of body mass index for purposes of nadia g dosing, the eGFR should be multiplied by t he estimated BMI. [facility]] C-REACTIVE [id number] 10:23:01 Test Item Value Reference Range Interpretation Comments CRP (test code = CRP) <2.9 <=2.9 [facility]] CBC (INCLUDES DIFF/PLT)2018-07-15 10:23:01 Test Item Value Reference Range Interpretation Comments WBC (test code = 9.3 {K/CMM} 3.7-10.4 6690-2) RBC (test code = 5.47 {M/CMM} 4.70-6.10 789-8) Hgb (test code = 16.5 g/dl 14.0-18.0 718-7) Hct (test code = 48.4 % 42.0-54.0 42417-6) MCV (test code = 88.4 fL 80.0-94.0 787-2) MCH (test code = 30.2 pg 27.0-31.0 785-6) MCHC (test code = 34.2 g/dl 32.0-36.0 786-4) RDW; Above High 16.4 % 11.5-14.5 Threshold (test code = 788-0) Platelet (test code See Note 133-450 Platelet estimate = 46536-7) appears adequat e. Unable to deter mine accurate count due toplatelet clum ps. Mean Platelet Volume 7.9 fL 7.4-10.4 (test code = 49644-6) [facility]] [id number] 10:23:01 Test Item Value Reference Range Interpretation Comments Segmented Neutrophils (test code 56.9 % 45.0-75.0 = 15754-6) Monocytes (test code = 14932-1) 7.0 % 2.0-12.0 Lymphocytes (test code = 73443-3) 35.0 % 20.0-40.0 Eosinophils (test code = 94168-5) 0.9 % 0.0-4.0 Basophils (test code = 706-2) 0.2 % 0.0-1.0 Segs-Bands # (test code = 5.3 {K/CMM} 1.5-8.1 60200-8) Lymphocytes # (test code = 3.3 {K/CMM} 1.0-5.5 24100-5) Monocytes # (test code = 21397-3) 0.7 {K/CMM} 0.0-0.8 Eosinophils # (test code = 0.1 {K/CMM} 0.0-0.5 65804-8) RBC Morphology (test code = RBC Normal Morphology) Plt Morphology (test code = Plt Clumped Morphology) [facility] CYCLIC CITRULLINATED PEPTIDE (CCP) AB (IGG)2018-07-15 10:23:01 Test Item Value Reference Range Interpretation Comments Cyclic Citrulline Peptide Antibody <0.5 <=2.9 (test code = 45621-0) [facility] Date/Time Note Provider Source 2018-10-26 Spine lumbar wo contrast MRI , 10/26/2018 2:45 PM ADAPTED 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. [facility] 14:45:00-00:00 CLINICAL INDICATION: 58 years Male - M47.896 Other spondylosis, lumba r region . Comparison: January 20, 2017. TECHNIQUE: Sagittal T1, sagi ttal T2 with fat saturation, axial T1 and axial T2 images were obtained. FINDINGS: There is a transitional lumb osacral junction with right-sided sacralization of L5 and a hypoplastic but fully formed L5-S1 disc with pseudojoint formation with the right sacral ala. T2 hyperintensity ag ain noted in the right L5 pe dicle and the sacralized vertebral body, probably related to facet synovitis without additional signs of infection. There is moderate left L5-S1 joint fluid with extradural s ynovial cyst, without additi onal signs of infection. L3-4 retrolisthesis measures 4 mm. Mild type I (fibrovascular or edematous) endplate changes are noted at L2-3, without additional signs of infection . The vertebrae are otherwis e normal in shape, signal intensity and alignment. The paravertebral soft tissues are normal. The conus medullaris termina desi normally at the L1-L2 level. There is no intradural mass lesion. T12-L1: There is preservatio n of the disc signal intensity, height, with no bulging, herniation, spinal stenosis, or neural foraminal stenosis. L1-L2: Disc is desiccated wi th preserved disc height and 2 mm disc bulge. No herniation, spinal stenosis, or neural foraminal stenosis. L2-L3: Disc is mildly desicc ated with preserved disc height. No bulging, herniation, spinal stenosis, or neural foraminal stenosis. L3-L4: Disc is desiccated wi th preserved disc height. Minimal disc bulge with midline annular fissuring, exaggerated by the retrolisthesis with minimal facet hypertrophy. This results in mild bilateral neural foraminal narrowing. No focal disc herniation or significant canal stenosis. L4-L5: Disc is desiccated w ith preserved disc height. Disc bulge/foraminal disc osteophyte complexes measure up to 6 mm with moderate facet hypertrophy, joint fluid, and mild ligamentum flavum thickeni ng. Epidural lipomatosis cau ses slight buckling of posterior dura. This results in moderate right greater than left canal lateral recess narrowing with crowding of the nerve roots and impingement on the descending L5 nerve roots. Moderate right and severe left neural foraminal narrowing compression of the left and deformity of the right L4 nerve roots. L5-S1: Well hydrated hypopla stic disc. Minimal disc bulge with mild facet hypertrophy on the right greater than left. There is mild extra foraminal stenosis related to the sacral alar pseudojoint spurri ng. No focal disc herniation or significant cydney l/neural foraminal narrowing. IMPRESSION: 1. Interval T2 hyperintensit y related to L2-3 likely due to type I endplate changes. Continued T2 hyperintensity of the right L5 pedicle probably due to facet synovitis, without additional signs for inf ection or trauma. If there i s clinical concern for infection, consider correlation with white blood cell count, C-reactive protein, and sedimentation rate. 2. L3-4 retrolisthesis. If t here is clinical concern for instability, consider flexion-extension views. 3. Moderate canal lateral re cess narrowing at L4-5. Multilevel foraminal narrowing including compression of the left and deformity of the right L4 nerve roots. 2017-01-20 EXAM: MRI LUMBAR SPINE WITHOUT CONTRAST JONNY Peterson 16:08:04-00:00 DATE: 01/20/2017 1:14 PM ADAPTED 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 INDICATION: M54.9 Dorsalgia, unspecified COMPARISON: None. TECHNIQUE: Multiplanar, multisequence MR imaging of the lumbar spine. IV contrast: None. FINDINGS: The transitional segment at the lumbosacral junction which is considered a partially sacralized L5. This presumed L5 segment is sacralized on the right with a congenitally small L5-S1 disc. The lowest w ell formed disc space is lab eled L4 -- transitional L5. Conus terminates normally at L1-L2. Lumbar vertebral bodies are normal in height and alignment. Congenital narrowing of the spinal canal due to sh ortened. Superimposed degene rative changes. Prominence of the epidural fat also contributes to the degree of spinal canal stenosis. L1-L2: Mild spinal canal tiki nosis the thecal sac measures 9 mm in midline AP dimension. Mild loss of disc height. Minimal disc bulge. No significant neural foraminal L2-L3: Mild loss of disc hei ght. Mild spinal canal stenosis. The thecal sac measures 9 to 10 mm in midline AP dimension. Mild bilateral facet arthropathy. No significant neural foraminal stenosis. L3-L4: Mild loss of disc hei ght. 3 to 4 mm circumferential disc bulge. Moderate bilateral facet arthropathy. Mild prominence of the epidural fat. The sac measures 8 mm in midline AP dimension with mild crowding of the intrathecal nerve roots of the cauda equina. Moderate spinal canal stenosis. Mild bilateral neural foraminal stenoses. L4-L5: Mild circumferential disc bulge measuring 4 mm posteriorly. Severe facet arthropathy. Since of the epidural fat. Severe spinal canal stenosis. The thecal sac 5 mm in midline AP dimension with mar ked crowding of the intrathe yareli nerve roots of the cauda equina. Disc osteophyte complexes and facet arthropathy result in moderate to severe neural foraminal stenoses which may encroach or impinge the exiting nerve roots. Transitional L5 (sacralized on the right) -- S1: Moderate facet arthropathy. Mild narrowing of the right greater than left neural foramina. Prominence of the epidural fat which effaces the thecal sac. The paraspinous soft tissues are unremarkable. IMPRESSION: Presumed L5 level is transit ional and sacralized on the right with a congenitally small L5-S1 disc. The L4-L5 disc is preserved in height. 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 Prominence of the epidural fat and multilevel degenerative change contributing to degree of spinal canal stenosis which is most severe at L4-L 5. Neural foraminal stenoses are also most severe at L4-L5, left greater than right. 2017-01-20 EXAM: MRI PELVIS WITHOUT CONTRAST JONNY MCGREGOR Peterson 14:52:18-00:00 DATE: 01/20/2017 1:15 PM ADAPTED 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 INDICATION: M54.9 Dorsalgia, unspecified COMPARISON: None available TECHNIQUE: Noncontrast multiplanar, multisequenc e images of the pelvis. FINDINGS: Lumbosacral plexus: The lumb osacral plexus and its major nerve branches are normal in size, course, and signal intensity. Specifically, the pudendal nerves are visualized from the level of the sacral pl exus through the level of Al cock's canal on the right. Visualization is limited on the left, however no areas of increased T2 signal are seen along the expected course of the nerve. There is no space occupying lesion or scarring along the co urse of the pudendal nerves. Labrum: While the examinatio n is limited without intra-articular contrast, no labral abnormality is identified. However, para labral cysts are seen bilaterally, right larger than left, suggesting the presence of superolateral labral tears. Ligaments: The sacrospinous and sacrotuberous ligaments are normal in thickness. Muscles: There is mild incre ased T2 signal throughout the quadratus femoris as it courses through the ischiofemoral canal (series 101, images 3-9). The ischiofemoral canal measures approximately 12 mm o n the left and 24 mm on the right. There is also increased T2 signal within bilateral gluteus medius tendons with mild underlying marrow edema of the lesser trochanter, left greater than right. Bones: Minimal increased T2 signal is seen within the left lesser trochanter, otherwise the visualized bone marrow is normal in signal intensity. Soft tissues: A small amount of fluid with thin internal septations is present within the right iliopsoas bursa. There is a small fat-containing inguinal hernia on the left. IMPRESSION: 1. No MR findings of neuropathy. 2. Narrowing of the left isc hiofemoral space with increased T2 signal throughout the quadratus femoris, suggestive of ischiofemoral impingement syndrome. 3. Bilateral degenerative te aring of the superior labrum with associated moderate sized paralabral cyst formation, right larger than left. 4. Bilateral gluteus medius tendinopathy, left g reater than right. 5. Small complex fluid adjac ent to the right iliopsoas tendon, which may represent a complex bursa versus ganglion cyst. 6. Small fat-containing left inguinal hernia. Please see separate dictation for lumbar spine M RI findings.
--- NOTE | 2023-06-23 16:42 | EDPHYS ---
Physician Documentation [facility] Name: Alvaro Viveros Age: 62 yrs Sex: Male : 1960 Arrival Date: 06/23/2023 Time: 16:10 Bed 15 Private MD: ED Physician Abel Peters HPI: 06/23 16:46 This 62 yrs old Male presents to ER via Ambulatory with complaints of snw Headache, Facial Pain. 16:46 The patient complains of pain to the forehead, right eye, nose and left eye. Onset: The snw symptoms/episode began/occurred gradually, 2 year(s) ago, and became worse 2 week(s) ago. Severity of symptoms: At its worst the pain was feels pressurized, in the emergency department the pain is unchanged. The patient has experienced similar episodes in the past. The patient has been recently seen by a physician: an allergy/denture contour wire specialist, earlier today. Historical: - Allergies: 16:39 No Known Allergies; me1 - Home Meds: 16:39 Furosemide Oral [Active]; pantoprazole oral [Active]; topiramate oral [Active]; me1 atorvastatin oral [Active]; amlodipine oral [Active]; carvedilol oral [Active]; citalopram oral [Active]; losartan oral [Active]; - PMHx: 16:39 Arthritis; Hypercholesterolemia; Hypertensive disorder; me1 - PSHx: 16:39 Appendectomy; me1 - Immunization history:: Adult Immunizations up to date. - Social history:: Smoking status: Patient denies any tobacco usage or history of. ROS: 16:45 Eyes: Negative for injury, pain, redness, and discharge. snw 16:45 Cardiovascular: Negative for chest pain, palpitations, and edema, Respiratory: Negative for shortness of breath, cough, wheezing, and pleuritic chest pain, Abdomen/GI: Negative for abdominal pain, nausea, vomiting, diarrhea, and constipation, Back: Negative for injury and pain, : Negative for injury, bleeding, discharge, and swelling, MS/Extremity: Negative for injury and deformity, Skin: Negative for injury, rash, and discoloration, Neuro: Negative for headache, weakness, numbness, tingling, and seizure, Psych: Negative for depression, anxiety, suicide ideation, homicidal ideation, and hallucinations. 16:45 Constitutional: Positive for body aches, malaise. 16:45 ENT: Positive for sinus congestion, sinus pain. 16:45 Neck: Positive for tenderness. Exam: 16:35 Constitutional: This is a well developed, obese patient who is awake, alert, and in no snw acute distress. Eyes: Pupils equal round and reactive to light, extra-ocular motions intact. Lids and lashes normal. Conjunctiva and sclera are non-icteric and not injected. Cornea within normal limits. Periorbital areas with no swelling, redness, or edema. Chest/axilla: Normal chest wall appearance and motion. Nontender with no deformity. No lesions are appreciated. Cardiovascular: Regular rate and rhythm with a normal S1 and S2. No gallops, murmurs, or rubs. Normal PMI, no JVD. No pulse deficits. Respiratory: Lungs have equal breath sounds bilaterally, clear to auscultation and percussion. No rales, rhonchi or wheezes noted. No increased work of breathing, no retractions or nasal flaring. Abdomen/GI: Soft, non-tender, with normal bowel sounds. No distension or tympany. No guarding or rebound. No evidence of tenderness throughout. Back: No spinal tenderness. No costovertebral tenderness. Full range of motion. Skin: Warm, dry with normal turgor. Normal color with no rashes, no lesions, and no evidence of cellulitis. MS/ Extremity: Pulses equal, no cyanosis. Neurovascular intact. Full, normal range of motion. Neuro: Awake and alert, GCS 15, oriented to person, place, time, and situation. Cranial nerves II-XII grossly intact. Motor strength 5/5 in all extremities. Sensory grossly intact. Cerebellar exam normal. Normal gait. Psych: Awake, alert, with orientation to person, place and time. Behavior, mood, and affect are within normal limits. 16:35 Head/face: Noted is swelling, that is moderate, tenderness, that is moderate, of the forehead, right eye, nose and left eye. 16:35 ENT: External ear(s): are unremarkable, Ear canal(s): swelling, that is moderate, of the right canal, TM's: not visable, Nose: External nose: no obvious acute abnormality, Nasal mucosa: edematous, erythematous, nasal drainage, is not appreciated, Mouth: is normal, Posterior pharynx: is normal, Voice: no acute changes. Vital Signs: 16:39 BP 146 / 83; Pulse 62; Resp 18; Temp 97.7; Pulse Ox 97% on R/A; Weight 167.83 kg; me1 Height 5 ft. 8 in. ; Pain 10/10; 16:39 Body Mass Index 56.26 (167.83 kg, 172.72 cm) nj1 16:39 Pain Scale: Adult me1 Rodolfo Coma Score: 16:39 Eye Response: spontaneous(4). Motor Response: obeys commands(6). Verbal Response: snw oriented(5). Total: 15. MDM: 16:25 Patient medically screened. snw 16:39 Differential diagnosis: migraine, sinusitis, tension headache, trigeminal neuralgia, snw vasomotor headache. Data reviewed: vital signs, nurses notes. I considered the following discharge prescriptions or medication management in the emergency department Medications were administered in the Emergency Department. See MAR. External Records Reviewed: Outpatient radiology: CT head/sinuses performed about two weeks ago, pt came here from allergists office. Counseling: I had a detailed discussion with the patient and/or guardian regarding: the historical points, exam findings, and any diagnostic results supporting the discharge/admit diagnosis, the need for outpatient follow up, for definitive care, to return to the emergency department if symptoms worsen or persist or if there are any questions or concerns that arise at home. Special discussion: Based on the history and exam findings, there is no indication for further emergent testing or inpatient evaluation. I discussed with the patient/guardian the need to see the gleason operator for further evaluation of the symptoms. I discussed with the patient/guardian the need to see the ENT specialist for further evaluation of the symptoms. I discussed with the patient/guardian the need to see the primary care provider for further evaluation of the symptoms. Administered Medications: 17:00 Drug: Famotidine PO 20 mg Route: PO; ll1 17:08 Follow up: Response: No adverse reaction ll1 17:00 Drug: ZyrTEC - Cetirizine PO 10 mg Route: PO; ll1 17:08 Follow up: Response: No adverse reaction ll1 17:00 Drug: Acetylcysteine PO 600 mg Route: PO; ll1 17:08 Follow up: Response: No adverse reaction ll1 17:05 Drug: Dexamethasone IM 10 mg Route: IM; Site: right gluteus; ll1 17:08 Follow up: Response: No adverse reaction ll1 Disposition: 17:14 Co-signature as Attending Physician, Abel Peters MD I reviewed the patient's care rn provided by the Advanced Practice Provider and agree with the diagnosis and treatment plan. Disposition Summary: 06/23/23 16:42 Discharge Ordered Location: Home snw Condition: Stable snw Diagnosis - Acute mastoiditis snw - Chronic sinusitis, unspecified snw Followup: snw - With: Emergency Department - When: As needed - Reason: Worsening of condition Followup: snw - With: Private Physician - When: 2 - 3 days - Reason: Recheck today's complaints, Continuance of care, Re-evaluation by your physician Discharge Instructions: - Discharge Summary Sheet snw - Sinusitis, Adult snw - Mastoiditis, Pediatric snw Forms: - Medication Reconciliation Form snw - Thank You Letter snw - Antibiotic Education snw - Prescription Opioid Use snw - Patient Portal Instructions snw Prescriptions: - Flonase Sensimist 27.5 mcg/actuation Nasal spray, suspension - spray 2 spray by INTRANASAL route daily as needed for allergy symptoms; into snw each nostril; 1 Applicator; Refills: 0, Product Selection Permitted - acetylcysteine 600 mg Oral capsule - take 2 capsule by ORAL route daily for 30 days; 60 capsule; Refills: 0, Product snw Selection Permitted - Zyrtec 10 mg Oral Tablet - take 1 tablet by ORAL route once daily As needed; 20 tablet; Refills: 0, snw Product Selection Permitted - Prednisone 20 mg Oral Tablet - take 2 tablets by ORAL route once daily for 5 days; 10 tablet; Refills: 0, snw Product Selection Permitted - Pepcid 20 mg Oral Tablet - take 1 tablet by ORAL route once daily; 20 tablet; Refills: 0, Product snw Selection Permitted Signatures: Tere Piper FNP-C HUB ASSOCIATE-Csnw Abel Peters MD MD rn Lewis, Lynsay, RN RN ll1 Krystal Haq RN RN me1
--- NOTE | 2023-06-23 16:42 | ER ---
Nurse's Notes [facility] Name: Alvaro Viveros Age: 62 yrs Sex: Male : 1960 Arrival Date: 06/23/2023 Time: 16:10 Bed 15 Private MD: Diagnosis: Acute mastoiditis;Chronic sinusitis, unspecified Presentation: 06/23 16:37 Chief complaint: Patient states: sinusitis x2 years. facial/sinus pain[place] [facility] [place]: At this time, the client does not indicate any symptoms associated with coronavirus-19. Ebola Screen: No symptoms or risks identified at this time. Initial Sepsis Screen: Does the patient meet any 2 criteria? No. Patient's initial sepsis screen is negative. Does the patient have a suspected source of infection? Yes: Other: sinusitis. Risk Assessment: Do you want to hurt yourself or someone else? Patient reports no desire to harm self or others. Onset of symptoms is unknown. 16:37 Method Of [place] [facility] [place] Acuity: MARSHA 4 [facility] [place] Assessment: 16:39 Headache History: The patient has had previous headaches and this one is similar [place] [facility] [place]. General: Appears uncomfortable, obese, well groomed, Behavior is calm, cooperative, appropriate for age. Pain: Complains of pain in head Pain does not radiate. Pain currently is 10 out of 10 on a pain scale. Quality of pain is described as aching, Pain began years ago. Neuro: Level of Consciousness is awake, alert, obeys commands, Oriented to person, place, time, situation. Cardiovascular: Capillary refill < 3 seconds Patient's skin is warm and dry. Respiratory: Respiratory effort is even, unlabored, Respiratory pattern is regular, symmetrical. 17:09 Pain: Also complains of no other associated symptoms. 1 Historical: - Allergies: 16:39 No Known Allergies; me1 - Home Meds: 16:39 Furosemide Oral [Active]; pantoprazole oral [Active]; topiramate oral [Active]; me1 atorvastatin oral [Active]; amlodipine oral [Active]; carvedilol oral [Active]; citalopram oral [Active]; losartan oral [Active]; - PMHx: 16:39 Arthritis; Hypercholesterolemia; Hypertensive disorder; me1 - PSHx: 16:39 Appendectomy; me1 - Immunization history:: Adult Immunizations up to date. - Social history:: Smoking status: Patient denies any tobacco usage or history of. Screenin:08 [facility] ED Fall Risk Assessment (Adult) Score/Fall Risk Level 0 - 2 = Low Risk ll1 Oriented to surroundings, Maintained a safe environment, Educated pt \T\ family on fall prevention, incl call for assistance when getting out of bed, Hourly rounding (assess needs \T\ fall precautionary measures) done. Abuse screen: Denies threats or abuse. Nutritional screening: No deficits noted. Tuberculosis screening: No symptoms or risk factors identified. Assessment: 17:08 Reassessment: No changes from previously documented assessment. Patient and/or family ll1 updated on plan of care and expected duration. Pain level reassessed. Patient is alert, oriented x 3, equal unlabored respirations, skin warm/dry/pink. Vital Signs: 16:39 BP 146 / 83; Pulse 62; Resp 18; Temp 97.7; Pulse Ox 97% on R/A; Weight 167.83 kg; me1 Height 5 ft. 8 in. ; Pain 10/10; 16:39 Body Mass Index 56.26 (167.83 kg, 172.72 cm) me1 16:39 Pain Scale: Adult me1 Rodolfo Coma Score: 16:39 Eye Response: spontaneous(4). Motor Response: obeys commands(6). Verbal Response: snw oriented(5). Total: 15. ED Course: 16:12 Patient arrived in ED. rg4 16:21 Te[facility]C [facility] snw 16:21 Abel Peters MD is Attending Physician. snw 16:39 Triage completed. me1 16:39 Arm band placed on Patient placed. me1 17:08 Bert Celeste RN is Primary Nurse. ll1 17:08 No provider procedures requiring assistance completed. Patient did not have IV access ll1 during this emergency room visit. 17:09 Patient has correct armband on for positive identification. Bed in low position. Call ll1 light in reach. Provided Education on: n/a. Administered Medications: 17:00 Drug: Famotidine PO 20 mg Route: PO; ll1 17:08 Follow up: Response: No adverse reaction ll1 17:00 Drug: ZyrTEC - Cetirizine PO 10 mg Route: PO; 1 17:08 Follow up: Response: No adverse reaction ll1 17:00 Drug: Acetylcysteine PO 600 mg Route: PO; ll1 17:08 Follow up: Response: No adverse reaction ll1 17:05 Drug: Dexamethasone IM 10 mg Route: IM; Site: right gluteus; ll1 17:08 Follow up: Response: No adverse reaction 1 Medication: 17:09 VIS not applicable for this client. 1 Outcome: 16:42 Discharge ordered by MD. umanzor 17:09 Discharged to home ambulatory. 1 17:09 Condition: stable 17:09 Discharge instructions given to patient, Instructed on discharge instructions, follow up and referral plans. medication usage, Demonstrated understanding of instructions, follow-up care, medications, Prescriptions given X x 5 17:09 Patient left the ED. 1 Signatures: Tere Piper, SPOT MACHINE OPERATOR-C SPOT MACHINE OPERATOR-Christine Mendenhall rg4 Bert Celeste RN RN 1 Krystal Haq RN RN or1
[2023-06-23] MEDS ORDERED: CETIRIZINE HCL 5 MG TABLET ONE (16:58)
[2023-06-23] MEDS ORDERED: ACETYLCYST 6,000 MG/30 ML VIAL ONE (16:59)
[2023-06-23] MEDS ORDERED: dexAMETHasone 10 MG/ML VIAL ONE (16:59)
[2023-06-23] MEDS ORDERED: FAMOTIDINE 20 MG TAB ONE (16:59)
[2023-06-23 17:23] VITALS: BP 146/83; TEMP 97.7; O2SAT 97
== END 2023-06-23 17:09 | disposition home or self-care (01) ==
LOC: ER 16:10
DX: H70.001 Acute mastoiditis without complications, right ear (principal); J32.9 Chronic sinusitis, unspecified; I10 Essential (primary) hypertension; E78.00 Pure hypercholesterolemia, unspecified
CPT/HCPCS: J7608; J1100

== ENCOUNTER 2024-07-20 07:18 | Day surgery (SDC) | payer MEDICARE ==
[2024-07-20 07:56] LABS: Absolute Eosinophils 0.2 K/uL (0-0.5); Absolute Lymphocytes (CBC) 2.6 K/uL (0.7-4.9); Absolute Monocytes 0.5 K/uL (0.1-1.3); Absolute Neutrophil 5.5 K/uL (1.8-8.0); Basophils % 0.3 % (0-1.3); Eosinophils % 2.2 % (0-4.4); Hemoglobin 14.1 g/dL (13.6-17.9); Lymphocytes % 29.4 % (15.3-44.8); MCH 29.4 pg (27.0-35.0); MCHC 33.5 g/dL (32.0-36.0); MCV 87.6 fL (80-100); MPV 7.7 fL (7.6-11.3); Monocytes % 5.7 % (3.3-12.3); Neutrophils % 62.4 % (41.7-73.7); Nucleated Red Blood Cells % 0.1 % (0-0); Platelets 179 thou/uL (152-406); RBC Red Blood Cell Count 4.79 M/uL (4.33-5.43); Red Cell Distribution Width 14.6 % (12.1-15.2)
[2024-07-20 08:09] LABS: Anion Gap 7.1 mEq/L (5.0-15.0); Potassium 4.1 mEq/L (3.5-5.1)
[2024-07-20] MEDS ORDERED: propofoL 200 MG/20 ML VIAL IV ONE ×2 (09:15→09:16)
[2024-07-20] MEDS ORDERED: MIDAZOLAM HCL 2 MG/2 ML INJ ONE (09:16)
[2024-07-20] MEDS ORDERED: LIDOCAINE 1% MPF 2 ML AMPULE ONE (09:16)
[2024-07-20 10:44] VITALS: BP 99/63; TEMP 97; O2SAT 98
--- NOTE | 2024-07-20 12:54 | EKG ---
Test Date: 2024-07-20 Test Time: 07:48:58 [employer] Manager: ANGLE MEASUREMENT RESULTS: Intervals: Rate: 55 NH: 198 QRSD: 152 QT: 474 QTc: 453 [place]: P: 43 NH: 198 QRS: -67 T: 48 INTERPRETIVE STATEMENTS: Sinus bradycardia Right bundle branch block Left anterior fascicular block Bifascicular block Abnormal ECG No previous ECG available for comparison Electronically Signed On 07-20-24 12:53:23 CDT by Nitesh Kirk
== END 2024-07-20 10:10 | disposition home or self-care (01) ==
LOC: OR 07:18
PROVIDERS: ATTEND Internal Medicine Gastroenterology
PROC: 0DB78ZX Excision of Stomach, Pylorus, Via Natural or Artificial Opening Endoscopic, Diagnostic (ICD-10-PCS; 2024-07-20)
PROC: 0DB68ZX Excision of Stomach, Via Natural or Artificial Opening Endoscopic, Diagnostic (ICD-10-PCS; principal; 2024-07-20 09:00)
DX: K31.89 Other diseases of stomach and duodenum (principal); K29.50 Unspecified chronic gastritis without bleeding; K21.9 Gastro-esophageal reflux disease without esophagitis; R14.0 Abdominal distension (gaseous); R11.0 Nausea; R06.02 Shortness of breath; K76.0 Fatty (change of) liver, not elsewhere classified; R10.13 Epigastric pain
CPT/HCPCS: 93005; 85025; 80048; 36415; 88312; 88305; 43239; J2704; J2250

== ENCOUNTER 2025-02-11 06:22 | Emergency (ER) | payer OTHER ==
[2025-02-11] MEDS ORDERED: NA CHLORIDE 0.9% 1,000 ML ONE (07:27)
[2025-02-11 08:05] LABS: Albumin 3.4 g/dL (3.4-5.0); Albumin/Globulin Ratio 0.9 (1.1-1.8); Anion Gap 8.2 mEq/L (5.0-15.0); Bilirubin Total 0.6 mg/dL (0.2-1.0); Globulin 3.9 g/dL (2.3-3.5); Potassium 4.2 mEq/L (3.5-5.1); Protein, Total 7.3 g/dL (6.4-8.2)
[2025-02-11 08:10] LABS: Specific Gravity 1.018 (1.005-1.030); Sqamous Epithelial <5 /HPF (None Seen); Urine Bacteria None Seen /HPF (<20); Urine Bilirubin NEGATIVE (Negative); Urine Blood Negative (Negative); Urine Clarity Clear (Clear); Urine Color Light-Yellow (Yellow); Urine Culture Reflex Order NOT NEEDED; Urine Glucose NEGATIVE (Negative); Urine Ketones NEGATIVE (Negative); Urine Microscopic Reflex YN ORDER UMIC; Urine Mucus Slight /HPF (None Seen); Urine Nitrite NEGATIVE (Negative); Urine Protein NEGATIVE (Negative); Urine RBC None Seen /HPF (None Seen); Urine Urobilinogen Normal (Normal); Urine WBC <5 /HPF (<5)
[2025-02-11 08:19] LABS: Absolute Basophils 0.1 K/uL (0-0.5); Absolute Eosinophils 0.1 K/uL (0-0.5); Absolute Lymphocytes (CBC) 2.9 K/uL (0.7-4.9); Absolute Monocytes 0.6 K/uL (0.1-1.3); Basophils % 0.8 % (0-1.3); Eosinophils % 1.3 % (0-4.4); Hematocrit 43.8 % (39.6-49.0); Hemoglobin 14.8 g/dL (13.6-17.9); Lymphocytes % 30.1 % (15.3-44.8); MCH 29.6 pg (27.0-35.0); MCHC 33.8 g/dL (32.0-36.0); MCV 87.6 fL (80-100); MPV 6.9 fL (7.6-11.3); Neutrophils % 61.8 % (41.7-73.7); Platelets 207 thou/uL (152-406); Red Cell Distribution Width 14.1 % (12.1-15.2)
--- NOTE | 2025-02-11 08:32 | RAD REPORT ---
EXAMINATION: CT Abdomen Pelvis Wo Contrast CLINICAL INDICATION: Male, 64 years old. FLANK PAIN TECHNIQUE: CT abdomen and pelvis was performed, without IV contrast, as per department protocol. Axia l, sagittal and coronal reconstructions were obtained. One or more of the following dose reduction techniques were used: Automated exposure control, adjustment of the mA and kV according to the patien t size, and iterative reconstruction. Unless otherwise specified, incidental findings do not require dedicated imaging follow-up. COMPARISON: 08/30/2024 FINDINGS: The lack of intravenous contrast limits the sensitivity of this exam for evaluation of solid visceral organs, vascular structures, and retroperitoneum. LOWER CHEST: The visualized lung bases are clear. LIVER: Normal in size and contour. No focal lesion. BILIARY SYSTEM: No suspicious abnormalities. SPLEEN: Normal size. No focal lesion. PANCREAS: No mass, ductal dilation, or gerardo-pancreatic fluid. ADRENALS: Normal; no mass. KIDNEYS AND URETERS: Normal size and contour. No hydronephrosis. URINARY BLADDER: Decompressed limiting evaluation.. GASTROINTESTINAL TRACT: No evidence of bowel obstruction, significant free fluid, free air or abscess . Ovoid 3.6 cm lesion adjacent to the transverse colon with central fat density is stable, may reflect sequelae of prior epiploic appendagitis. APPENDIX: Appendix surgically absent. LYMPH NODES: No lymphadenopathy. MUSCULOSKELETAL: No acute or suspicious osseous abnormality. Up to advanced lower lumbar spine degene rative changes. ADDITIONAL FINDINGS: None. IMPRESSION: No acute or concerning abnormalities in the abdomen or pelvis, with evaluation limited by lack of IV contrast. Stable findings as above.
--- NOTE | 2025-02-11 08:42 | ER ---
Nurse's Notes [facility] Name: Alvaro Viveros Jr Age: 64 yrs Sex: Male : 1960 Arrival Date: 02/11/2025 Time: 06:22 Bed 7 Private MD: Diagnosis: Left flank pain, muscular pain Presentation: 02/11 06:49 Chief complaint: Patient states: BACK PAIN THAT GETS WORSE WITH MOVEMENT. Coronavirus ha1 screen: Client denies travel out of the [place] in the last 14 days. Ebola Screen: No symptoms or risks identified at this time. Initial Sepsis Screen: Does the patient meet any 2 criteria? No. Patient's initial sepsis screen is negative. Does the patient have a suspected source of infection? No. Patient's initial sepsis screen is negative. Risk Assessment: Do you want to hurt yourself or someone else? Patient reports no desire to harm self or others. Onset of symptoms was February 11, 2025. 06:49 Method Of Arrival: Ambulatory ha1 06:49 Acuity: MARSHA 3 ha1 Triage Assessment: 06:49 General: Appears comfortable, Behavior is cooperative. Pain: Complains of pain in back ha1 Pain at worst was 9 out of 10 on a pain scale. Quality of pain is described as throbbing. Neuro: Level of Consciousness is awake, alert, obeys commands, Oriented to person, place, time, situation. Cardiovascular: Capillary refill < 3 seconds Patient's skin is warm and dry. Respiratory: Airway is patent Respiratory effort is even, unlabored, Respiratory pattern is regular, symmetrical. GI: Abdomen is round obese. : No signs and/or symptoms were reported regarding the genitourinary system. Derm: Skin is normal. Musculoskeletal: Circulation, motion, and sensation intact. Range of motion: intact in all extremities. Historical: - Allergies: 06:52 No Known Allergies; ha1 - PMHx: 06:52 Arthritis; Hypercholesterolemia; Hypertensive disorder; ha1 - Immunization history:: Adult Immunizations up to date. - Infectious Disease History:: Denies. - Social history:: Smoking status: Patient uses street drugs, marijuana. Screenin:54 [facility] [place] ED Fall Risk Assessment (Adult) History of falling in the last 3 months, ha1 including since admission No falls in past 3 months (0 pts) Confusion or Disorientation No (0 pts) Intoxicated or Sedated No (0 pts) Impaired Gait No (0 pts) Mobility Assist Device Used No (0 pt) Altered Elimination No (0 pt) Score/Fall Risk Level 0 - 2 = Low Risk Oriented to surroundings, Maintained a safe environment, Educated pt \T\ family on fall prevention, incl call for assistance when getting out of bed, Hourly rounding (assess needs \T\ fall precautionary measures) done. Abuse screen: Denies threats or abuse. Denies injuries from another. Nutritional screening: No deficits noted. Tuberculosis screening: No symptoms or risk factors identified. Assessment: 07:20 General: Appears uncomfortable, Behavior is calm, cooperative. Pain: Complains of pain aa5 in left flank Pain currently is 7 out of 10 on a pain scale. Quality of pain is described as sharp, shooting, Is intermittent, Aggravated by movement. Neuro: Level of Consciousness is awake, alert, obeys commands, Oriented to person, place, time, situation. Cardiovascular: Patient's skin is warm and dry. Respiratory: Airway is patent Respiratory effort is even, unlabored, Respiratory pattern is regular, symmetrical. GI: Abdomen is obese, Bowel sounds present X 4 quads. Abd is soft and non tender X 4 quads. : No signs and/or symptoms were reported regarding the genitourinary system. EENT: No signs and/or symptoms were reported regarding the EENT system. Derm: No signs and/or symptoms reported regarding the dermatologic system. Skin is pink, warm \T\ dry. Musculoskeletal: Range of motion: intact in all extremities. 08:11 Reassessment: Patient is alert, oriented x 3, equal unlabored respirations, skin aa5 warm/dry/pink. Pt back from CT scan . 09:04 Reassessment: Patient is alert, oriented x 3, equal unlabored respirations, skin aa5 warm/dry/pink. Vital Signs: 06:49 BP 158 / 88; Pulse 63; Resp 17 S; Temp 98.1(T); Pulse Ox 98% on R/A; Weight 172.37 kg; ha1 Height 5 ft. 4 in. ; 06:49 Body Mass Index 65.23 (172.37 kg, 162.56 cm) ha1 ED Course: 06:25 Patient arrived in ED. jj6 06:52 Triage completed. ha1 07:05 Lavinia Pennington MD is Attending Physician. sp3 07:11 Report given to CRISTINA RN. jj7 07:20 Patient has correct armband on for positive identification. Call light in reach. aa5 07:26 Cristina Freitas, RN is Primary Nurse. aa5 07:35 Initial lab(s) drawn, by me, sent to lab. Inserted saline lock: 20 gauge in left aa5 antecubital area, using aseptic technique. Blood collected. Flushed with 10 mL NS. 08:03 CT Abd/Pelvis - Without Contrast In Process Unspecified. EDMS 08:13 Lab(s) recollected, by me, sent to lab. em1 08:18 No provider procedures requiring assistance completed. aa5 09:04 IV discontinued, intact, bleeding controlled, No redness/swelling at site. Pressure aa5 dressing applied. Administered Medications: 07:21 CANCELLED (error): ondansetron 4 mg IVP once; over 2 minutes sp3 07:21 CANCELLED (Error): morphineor iv 4 mg IVP once over 4 mins sp3 08:11 Drug: NS 0.9% IV 1000 ml IV at 1 bolus Per protocol; to be given as a bolus over 60 aa5 minutes Route: IV; Rate: 1 bolus; Site: left antecubital; 09:04 Follow up: IV Status: Completed infusion; IV Intake: 1000ml aa5 Medication: 08:18 VIS not applicable for this client. aa5 Intake: 09:04 IV: 1000ml; Total: 1000ml. aa5 Outcome: 08:41 Discharge ordered by MD. sp3 09:04 Discharged to home ambulatory, aa5 09:04 Condition: stable 09:04 Discharge instructions given to patient, Instructed on discharge instructions, follow up and referral plans. medication usage, Demonstrated understanding of instructions, follow-up care, medications, Prescriptions given X 1, 09:04 Patient left the ED. aa5 Signatures: Dispatcher [employer] EDKS John Marcelo em1 Cristina Freitas, RN RN aa5 Lavinia Pennington MD MD sp3 Jasmin Drake jj6 Jackie Cameron RN RN ha1 Lo Lamb RN RN jj7
--- NOTE | 2025-02-11 08:42 | EDPHYS ---
Physician Documentation [facility] Name: Alvaro Viveros Jr Age: 64 yrs Sex: Male : 1960 Arrival Date: 02/11/2025 Time: 06:22 Bed 7 Private MD: ED Physician Lavinia Pennington HPI: 02/11 07:32 This 64 yrs old Male presents to ER via Ambulatory with complaints of Low Back sp3 Pain, Possible Kidney Stone. 07:32 64-year-old male with a history of hypertension, hyperlipidemia, arthritis, obesity, sp3 lumbosacral disc disease with history of injections, now presents to the ED with chief complaint left flank pain off and on for the last 2 weeks. Patient has seen his PCP and was also seen at [place] [facility] and given IM shots for muscular pain with no imaging performed. He is also in the process of seeing his pain medication physician as well as getting worked up for gastric bypass. He denies any trauma, right-sided pain, intra-abdominal pain, radiculopathy, weakness or numbness, gross visualized hematuria, dysuria, urinary frequency, chest pain, shortness of breath or any other signs or symptoms on ROS at this time.. Historical: - Allergies: 06:52 No Known Allergies; ha1 - PMHx: 06:52 Arthritis; Hypercholesterolemia; Hypertensive disorder; ha1 - Immunization history:: Adult Immunizations up to date. - Infectious Disease History:: Denies. - Social history:: Smoking status: Patient uses street drugs, marijuana. ROS: 07:33 Constitutional: Negative for fever, chills, and weight loss, Eyes: Negative for injury, sp3 pain, redness, and discharge, ENT: Negative for injury, pain, and discharge, Neck: Negative for injury, pain, and swelling, Cardiovascular: Negative for chest pain, palpitations, and edema, Respiratory: Negative for shortness of breath, cough, wheezing, and pleuritic chest pain, MS/Extremity: Negative for injury and deformity, Skin: Negative for injury, rash, and discoloration, Neuro: Negative for headache, weakness, numbness, tingling, and seizure, Psych: Negative for depression, anxiety, suicide ideation, homicidal ideation, and hallucinations, Allergy/Immunology: Negative for hives, rash, and allergies, Endocrine: Negative for neck swelling, polydipsia, polyuria, polyphagia, and marked weight changes, 07:33 All other systems are negative, Exam: 07:34 Constitutional: This is a well developed, well nourished patient who is awake, alert, sp3 and in no acute distress. Head/Face: Normocephalic, atraumatic. Eyes: Pupils equal round and reactive to light, extra-ocular motions intact. Lids and lashes normal. Conjunctiva and sclera are non-icteric and not injected. Cornea within normal limits. Periorbital areas with no swelling, redness, or edema. Neck: Trachea midline, no thyromegaly or masses palpated, and no cervical lymphadenopathy. Supple, full range of motion without nuchal rigidity, or vertebral point tenderness. No Meningismus. Chest/axilla: Normal chest wall appearance and motion. Nontender with no deformity. No lesions are appreciated. Cardiovascular: Regular rate and rhythm with a normal S1 and S2. No gallops, murmurs, or rubs. Normal PMI, no JVD. No pulse deficits. Respiratory: Lungs have equal breath sounds bilaterally, clear to auscultation and percussion. No rales, rhonchi or wheezes noted. No increased work of breathing, no retractions or nasal flaring. Abdomen/GI: Soft, non-tender, with normal bowel sounds. No distension or tympany. No guarding or rebound. No evidence of tenderness throughout. Skin: Warm, dry with normal turgor. Normal color with no rashes, no lesions, and no evidence of cellulitis. MS/ Extremity: Pulses equal, no cyanosis. Neurovascular intact. Full, normal range of motion. Neuro: Awake and alert, GCS 15, oriented to person, place, time, and situation. Cranial nerves II-XII grossly intact. Motor strength 5/5 in all extremities. Sensory grossly intact. Cerebellar exam normal. Normal gait. Psych: Awake, alert, with orientation to person, place and time. Behavior, mood, and affect are within normal limits. 07:34 Back: Mild pain to palpation of the left flank musculature. Physical limited by body habitus. No CVA tenderness noted. Patient states that the pain he is feeling is internal and not the pain that is elicited based on my palpation., Vital Signs: 06:49 BP 158 / 88; Pulse 63; Resp 17 S; Temp 98.1(T); Pulse Ox 98% on R/A; Weight 172.37 kg; ha1 Height 5 ft. 4 in. ; 06:49 Body Mass Index 65.23 (172.37 kg, 162.56 cm) ha1 MDM: 07:08 Medical Screening Exam initiated sp3 07:35 Data reviewed: vital signs, nurses notes, lab test result(s), radiologic studies. ED sp3 course: 64-year-old male with PMH above now with left flank pain in the musculature as well as internal as described by patient. Differential diagnosis includes musculoskeletal pain, lumbar radiculopathy, kidney stone/ureterolithiasis spectrum, UTI/pyelonephritis spectrum, other intra-abdominal pathology, among others. I am not highly suspicious of aortic or vascular pathology, sepsis, shock or any other critical process. Vital signs are normal. Workup will include CT scan of the abdomen pelvis, general labs and UA. Patient drove here and cannot receive narcotics. However he does not request any pain medication at this time stating he is here mainly for the diagnostics. Disposition pending workup and patient course.. 08:40 ED course: Full workup negative including CT scan. We will safely discharge patient sp3 home at this time with his continued follow-up appointments that he is already made.. 02/11 07:09 Order name: CBC with Diff; Complete Time: 08:24 sp3 02/11 07:09 Order name: CMP; Complete Time: 08:24 sp3 02/11 07:09 Order name: Lipase; Complete Time: 08:24 sp3 02/11 07:09 Order name: Urinalysis w/ reflexes; Complete Time: 08:24 sp3 02/11 07:09 Order name: CT Abd/Pelvis - Without Contrast; Complete Time: 08:40 sp3 02/11 07:09 Order name: IV Saline Lock; Complete Time: 07:36 sp3 02/11 07:09 Order name: Labs collected and sent; Complete Time: 07:36 sp3 02/11 07:52 Order name: Labs - recollect needed: please recollect CBC; Complete Time: 08:11 sp Administered Medications: 07:21 CANCELLED (error): ondansetron 4 mg IVP once; over 2 minutes sp3 07:21 CANCELLED (Error): morphineor iv 4 mg IVP once over 4 mins sp3 08:11 Drug: NS 0.9% IV 1000 ml IV at 1 bolus Per protocol; to be given as a bolus over 60 aa5 minutes Route: IV; Rate: 1 bolus; Site: left antecubital; 09:04 Follow up: IV Status: Completed infusion; IV Intake: 1000ml aa5 Disposition Summary: 02/11/25 08:41 Discharge Ordered Notes: Location: Home sp3 Condition: Stable sp3 Diagnosis - Left flank pain, muscular pain sp3 Followup: sp3 - With: Private Physician - When: Upon discharge from the Emergency Department - Reason: Continuance of care Discharge Instructions: - Discharge Summary Sheet sp3 - Muscle Cramps and Spasms sp3 Forms: - Medication Reconciliation Form sp3 - Antibiotic Education sp3 - Prescription Opioid Use sp3 - Patient Portal Instructions sp3 - Leadership Thank You Letter sp3 Prescriptions: - Tramadol 50 mg Oral Tablet - take 1 tablet ORAL route every 8 hours as needed; 12 tablet; Refills: 0, sp3 Product Selection Permitted Signatures: Dispatcher [employer] EDMS Marilee Wylie sp Cristina Freitas, RN RN aa5 Lavinia Pennington MD MD sp3 Jackie Cameron RN RN ha1 Corrections: (The following items were deleted from the chart) 07:21 07:09 Ondansetron IVP 4 mg IVP once; over 2 minutes ordered. sp3 sp3 07:21 07:09 morphine IVP or IV 4 mg IVP once over 4 mins ordered. sp3 sp3
[2025-02-11 09:24] VITALS: BP 158/88; TEMP 98.1; O2SAT 98
== END 2025-02-11 09:04 | disposition home or self-care (01) ==
LOC: ER 06:22
DX: M79.10 Myalgia, unspecified site (principal); M54.50 Low back pain, unspecified
CPT/HCPCS: 85025; 81001; 36415; 83690; 80053; 74176; 96360; 99284; J7030